=== PATIENT | female | born 1955 | race Hispanic/Latino ===

== ENCOUNTER 2020-03-12 14:47 | Emergency (ER) | payer OTHER ==
[~2020-03-12] VITALS: Ht 167.6 cm; Wt 90.3 kg
[~2020-03-12 14:47] MED LIST: ATORVASTATIN CA20 MG PO; CELEBREX100 MG PO; KEFLEX500 MG PO; LISINOPRIL2.5 MG PO; LOPRESSOR25 MG PO; METFORMIN HCL500 MG PO; NIFEDIPINE10 MG PO; NOVOLIN N100 UNIT/1 SQ; OMEPRAZOLE40 MG PO; SENNA LAX8.6 MG PO; ULTRAM50 MG PO; ZOFRAN4 MG SL
--- OUTSIDE RECORDS SUMMARY | 2020-03-12 15:24 | XMS REPORT | Clinical Summary ---
Author Author [facility] Organization [facility] Address Unknown Phone Unavailable Care Team Providers Care Power System Operator Name Role Phone PCP Unavailable Allergies Comments Active Allergy Reactions Severity Noted Date Codeine Nausea and 01/11/2016 Vomiting Medications End Date Status Medication Sig Dispensed Refills Start Date Active ergocalciferol (VITAMIN Take 1 12 capsule 1 D2) 50,000 unit capsule by 6 capsuleIndications: mouth weekly. Vitamin D deficiency Active naproxen (NAPROSYN) 500 Take 1 tablet 30 tablet 0 mg tabletIndications: by mouth 2 7 Acute pain of right knee times daily as needed for Pain. Active ketoconazole (NIZORAL) 2 Apply to 30 g 1 1 % topical affected area 7 creamIndications: Vaginal 2 times itching, Tinea cruris daily. Active prednisoLONE acetate Instill 1 5 mL 3 05/07 (PRED FORTE) 1 % Drop in right 8 ophthalmic eye 4 times suspensionIndications: daily. Status post cataract extraction and insertion of intraocular lens of right eye Active gabapentin (NEURONTIN) Take 1 270 capsule 1 300 mg capsule by 8 capsuleIndications: mouth at Paresthesia of both feet bedtime nightly. Active linagliptin (TRADJENTA) 5 Take 1 tablet 90 tablet 1 mg tabletIndications: by mouth 8 Type 2 diabetes mellitus daily. with complication, without long-term current use of insulin Active fenofibrate Take 1 tablet 90 tablet 1 nanocrystallized (TRICOR) by mouth 8 48 mg tabletIndications: daily. Mixed hyperlipidemia, Preventative health care Active atorvastatin (LIPITOR) 20 Take 1 tablet 90 tablet 1 mg tabletIndications: by mouth at 8 Mixed hyperlipidemia bedtime nightly. Active blood glucose meter Use as 1 Kit 0 (PRECISION XTRA directed.. 8 GLUCOMETER)Indications: Type 2 diabetes mellitus with complication, without long-term current use of insulin Active blood glucose (PRECISION Use 2 times 50 Each 3 0 XTRA TEST STRIPS) test weekly (once 8 stripsIndications: Type 2 per day on diabetes mellitus with Mon,) to complication, without test blood long-term current use of sugar. insulin Active lancets 28 Use 2 times 100 Each 1 gaugeIndications: Type 2 weekly as 8 diabetes mellitus with directed. complication, without long-term current use of insulin Active lisinopril (ZESTRIL) 2.5 Take 1 tablet 90 tablet 1 mg tabletIndications: by mouth 8 Albuminuria daily. Active glyBURIDE micronized Take 1 tablet 60 tablet 1 (GLYNASE) 6 mg by mouth 2 8 tabletIndications: Type 2 times daily diabetes mellitus not at (before goal meals). Active metFORMIN (GLUCOPHAGE) Take 2 360 tablet 1 500 mg tabletIndications: tablets by 8 Type 2 diabetes mellitus mouth 2 times not at goal daily (with meals). Active pioglitazone (ACTOS) 15 Take 1 tablet 90 tablet 3 mg tabletIndications: by mouth 8 Poorly controlled daily. diabetes mellitus Active Problems Problem Noted Date Type 2 diabetes mellitus not at goal 08/06/2017 Pseudophakia 04/04/2017 Cataract 03/07/2017 Overview: Added automatically from request for monica zapata [id number] Nuclear sclerotic cataract of both eyes 02/28/2017 Mixed hyperlipidemia 01/31/2016 Vitamin D deficiency 01/31/2016 Type 2 diabetes mellitus with complication, without l angelina-term current use 01/16/2016 of insulin Secondary hypertension 01/16/2016 Blurry vision, bilateral 01/16/2016 Immunizations Name Administration Dates Next Due Hepatitis B Pedi/Adol 08/13/2017 Influenza <Unspecified> 01/06/2016 Influenza Vaccine 02/29/2016 (Deferred: Jimi cuevas Refused) Influenza Vaccine, 03/10/2017 (Deferred: Jimi cuevas Refused - pt stated Seasonal, Injectable her ride was here could not wait) PPV 23 (Pneumococcal 08/13/2017 Polysaccharide 23 Valent) Pcv-13 Pneumococcal 01/11/2016 Conjugate Tdap Tetanus, diphtheria, 01/16/2016 acellular pertussis Vaccine Family History Medical History Relation Name Comments Heart Father Hypertension Father Stroke Father Glaucoma Maternal Aunt Glaucoma Maternal Grandmother Arthritis Mother Cataracts Sister Diabetes Sister Asthma Son Relation Name Status Comments Father Alive Maternal Aunt Alive cancer Maternal Aunt cancer (Age 60) Maternal Grandmother Mother Alive Paternal Uncle heart (Age 35) Paternal Uncle heart (Age 58) Paternal Uncle heart (Age 50-60) Paternal Uncle herat (Age 50-60) Sister Son Social History Date Tobacco Use Types Packs/Day Years Used Never Smoker Smokeless Tobacco: Never Used Tobacco Cessation: Counseling Given: No Drinks/Week oz/Week Comments Alcohol Use 0 Standard drinks or equivalent 0.0 No Food Insecurity Answer Date Recorded Within the past 12 months, you worried that your Never yesi e 01/17/2017 food would run out before you got money to buy more. Within the past 12 months, the food you bought Never true 01/17/2017 just didn't last and you didn't have mo trip to get more. Sex Assigned at Date Recorded Not on file Industry Job Start Date Occupation Not on file Not on file Not on file Travel End Travel History Travel Start No recent travel history available. Last Filed Vital Signs Not on file Plan of Treatment Health Maintenance Due Date Last Done Comments HPV Cervical Cancer Scrn 12/27/1987 Pap Cervical Cancer Scrn 03/27/2010 03/27/2005 Colorectal Cancer Scrn 01/23/2017 01/24/2016 Annual (FIT/FOBT) Age 50 to 75 Breast Cancer Scrn 02/15/2017 02/16/2016, (Yearly) 04/16/2005 DM Foot Exam (Yearly) 01/17/2018 01/17/2017 DM Retinal Exam (Yearly) 02/28/2018 02/28/2017, 02/28/2017, 04/08/2016 DM HGBA1C (Yearly) 07/28/2018 07/28/2017, 01/24/2017, 07/05/2016, Additional history exists IMM Influenza Seasonal 02/03/2020 01/06/2016 Oct to July (>/= 19 yrs) Goals Goal Patient Associated Recent Progress Patient-Stat Aut hor Goal Type Problems ed? Use plate model Diet Not on track No Otoniel, (08/06/2017 2:02 PM MONICA Soto CDT) HBA1C < 7.0 Result 13.1 (07/28/2017 No Guzman, Component 2:54 PM CDT) Lee Pike LVN LDL < 100 Result 136 (07/28/2017 No Hemant, Amn a, Component 2:54 PM CDT) Implants Device Identifier Shelf Expiration Date Model / Serial / L ot Implanted Type Area Manufactur er 09/03/2020 [id number] / [id number] / Implant [employer] 1 Piece Implant Left: Eye, Morales [id number] 22.5d - [id number] eye Anterior [employer] Implanted: Qty: 1 on 04/03/2017 by Irina Webber ResidentMD at [facility] 02/25/2021 / [id number] / Implant [employer] 1 Piece Implant Right : Eye, [id number] 22.0d - [id number] eye Anterio r Implanted: Qty: 1 on 05/06/2017 by Juan Ruiz MD at [facility] Results Not on fileafter 03/12/2019
--- OUTSIDE RECORDS SUMMARY | 2020-03-12 15:25 | XMS REPORT | Continuity of Care Document ---
Author Author [facility] t Organization [facility] Address [address] [place] [phone] Phone Unavailable Care Team Providers Care Auctioneer Art Name Role Phone MD MERT MEDINA PCP CHELSEY TOLEDO Attphys Unavailable RASSOLI, AMIR Attphys Unavailable CHELSEY TOLEDO Admphys Unavailable RASSOLI, AMIR Admphys Unavailable Payers Payer Name Policy Type Policy Number Effective Date Expiration Date Valentina Elizondo [id number] 2019 00:00:00 [facility] Cdc Review [id number] [facility] Problems Condition Name Condition Details Condition Category Status Onset Date Resolution Date Last Treatment Date Treating Clinician Comments Source Type 2 diabetes mellitus not at goal Type 2 diabetes mellitu s not at goal Disease Active 2017-08-06 00:00:00 [facility] Pseudophakia Pseudophakia Disease Active 2017-04-04 00:00:00 [facility] Cataract Cataract Disease Active 2017-03-07 00:00:00 Overview: Added automatically from request for surgery [id number] [facility] Nuclear sclerotic cataract of both eyes Nuclear sclerotic ca taract of both eyes Disease Active 2017-02-28 00:00:00 [facility] Mixed hyperlipidemia Mixed hyperlipidemia Disease Active 00:00:00 [facility] Vitamin D deficiency Vitamin D deficiency Disease Active 00:00:00 [facility] Type 2 diabetes mellitus with complicati on, without long-term current use of insulin Type 2 diabetes mellitus with complicati on, without long-term current use of insulin Disease Active 2016-01-16 00:00:00 [facility] Secondary hypertension Secondary hypertension Disease Active 2016-01-16 00:00:00 [facility] Blurry vision, bilateral Blurry vision, bilateral Disease Acti ve 2016-01-16 00:00:00 [facility] Problem Condition Active [facility] Allergies, Adverse Reactions, Alerts Allergy Name Allergy Type Status Severity Reaction(s) Onset Date Inacti ve Date Treating Clinician Comments Source Codeine Allergy to substance Active 2020-02-25 00:00:00 [facility] codeine DA Active [place] 2019-03-29 00:00:00 [facility] codeine DA Active [place] 2018-11-06 00:00:00 [facility] Codeine Propensity to adverse reactions to drug Active Nausea and Vomiting 2016-01-11 00:00:00 [facility] Family History Family Member Diagnosis Comments Start Date Stop Date Source Natural father Heart [facility] Natural father [facility]ension [facility] Natural father Stroke [facility] Maternal aunt Glaucoma [facility]aternal grandmother Glaucoma [facility] Natural mother Arthritis [facility] Natural sister Cataracts [facility] Natural sister Diabetes [facility] Natural son Asthma [facility] Social History Social Habit Start Date Stop Date Quantity Comments Source Sex Assigned At [facility] Alcohol intake 2018-10-07 00:00:00 2018-10-07 00:00:00 Current non-drinker of alcohol (finding) [facility] SDOH Food Worry 2017-01-17 00:00:00 2017-01-17 00:00:00 1 [facility] Food Scarcity 2017-01-17 00:00:00 2017-01-17 00:00:00 1 [facility] Smoking Status Start Date Stop Date Source Never smoker [facility] Medications Ordered Medication Name Filled Medication Name Start Date Stop Da te Current Medication? Ordering Clinician Indication Dosage Frequency Signature (SIG) Comments Components Source pioglitazone (ACTOS) 15 mg tablet 2017-08-13 00:00:00 Yes Poorly controlled diabetes mellitus 15mg QD Take 1 tablet by mouth daily. [facility] glyBURIDE micronized (GLYNASE) 6 mg tablet 2017-08-06 00:00: 00 Yes Type 2 diabetes mellitus not at goal 6mg Q.5D Take 1 tab let by mouth 2 times daily (before meals). [facility] metFORMIN (GLUCOPHAGE) 500 mg tablet 2017-08-06 00:00:00 Yes Type 2 diabetes mellitus not at goal 1000mg Take 2 tab lets by mouth 2 times daily (with meals). [facility] gabapentin (NEURONTIN) 300 mg capsule 2017-07-28 00:00:00 Yes Paresthesia of both feet 300mg Take 1 capsule by mouth at bedtime nightly. [facility] linagliptin (TRADJENTA) 5 mg tablet 2017-07-28 00:00:00 Yes Type 2 diabetes mellitus with complication, without long-term current use of insulin 5mg QD Take 1 tablet by mouth daily. [facility] fenofibrate nanocrystallized (TRICOR) 48 mg tablet 2017-07 00:00:00 Yes Preventative health care 48mg QD Take 1 tablet by mouth da dyan. [facility] atorvastatin (LIPITOR) 20 mg tablet 2017-07-28 00:00:00 Yes Mixed hyperlipidemia 20mg Take 1 tablet by mouth at bedtime nightly. [facility] blood glucose meter (PRECISION XTRA GLUCOMETER) 2017-07-28 0 0:00:00 Yes Type 2 diabetes mellitus with complication, without long-term current use of insulin Use as directed.. [facility] blood glucose (PRECISION XTRA TEST STRIPS) test strips 2017-07-28 00:00:00 Yes Type 2 diabetes mellitus wit h complication, without long-term current use of insulin Use 2 times weekly ( once per day on Fri,) to test blood sugar. [facility] lancets 28 gauge 2017-07-28 00:00:00 Yes Type 2 diabetes mellitus with complication, without long-term current use of insulin Use 2 times weekly as directed. [facility] lisinopril (ZESTRIL) 2.5 mg tablet 2017-07-28 00:00:00 Y es Albuminuria 2.5mg QD Take 1 tablet by mouth daily. [facility] prednisoLONE acetate (PRED FORTE) 1 % ophthalmic suspension 2017-05-07 00:00:00 Yes Status post toni ract extraction and insertion of intraocular lens of right eye 1[drp] Instill 1 Drop in right eye 4 times rebecca ita [facility] ketoconazole (NIZORAL) 2 % topical cream 2017-02-25 00:00:00 Yes Tinea cruris Q.5D Apply to affected area 2 times daily. [facility] naproxen (NAPROSYN) 500 mg tablet 2016-07-09 00:00:00 Yes Acute pain of right knee 500mg Take 1 tablet by mouth 2 times daily as needed for Pain. [facility] ergocalciferol (VITAMIN D2) 50,000 unit capsule 2016-01-31 0 0:00:00 Yes Vitamin D deficiency [id number] Take 1 capsule by mouth weekly. [facility] Atorvastatin Calcium Atorvastatin Calcium Yes 40 Bedtime [facility] Celecoxib (Celebrex*) 100 Mg CAPSULE Celecoxib (Celebrex*) 100 Mg C APSULE Yes 100 Twice A Day as needed for Pain [facility] Cephalexin Monohydrate (Keflex) 500 Mg CAPSULE Cephale eriberto Monohydrate (Keflex) 500 Mg CAPSULE Yes 500 Three Times A Day [facility] Metoprolol Tartrate (Lopressor) 25 Mg TAB Metoprolol T artrate (Lopressor) 25 Mg TAB Yes 50 Twice A Day [facility] Nifedipine Nifedipine Yes 30 Bedtime [facility] Nph, Human Insulin Isophane (Novolin N) 100 Unit/1 Ml VIAL Nph, Human Insulin Isophane (Novolin N) 100 Unit/1 Ml VIAL Yes 40 Daily [facility] Nph, Human Insulin Isophane (Novolin N) 100 Unit/1 Ml VIAL Nph, Human Insulin Isophane (Novolin N) 100 Unit/1 Ml VIAL Yes 20 Bedtime [facility] Omeprazole Omeprazole Yes 40 Daily@0600 [facility] Ondansetron Hcl (Zofran*) 4 Mg TABLET Ondansetron Hcl (Zofran*) 4 M g TABLET Yes 4 Every 4 Hours as needed for Nausea And V omiting [facility] Sennosides (Senna Lax) 8.6 Mg TABLET Sennosides (Senna Lax) 8.6 Mg TABLET Yes 8.6 Twice A Day [facility] Tramadol Hcl (Ultram) 50 Mg TABLET Tramadol Hcl (Ultram) 50 Mg TABLET Yes 50 Every 6 Hours as needed for Pain [facility] Lisinopril Lisinopril 2020-03-08 00:00:00 No 2.5 Jennifer ly [facility] Metformin Hcl Metformin Hcl 2020-02-25 00:00:00 No 500 Twice A Day [facility] Immunizations Ordered Immunization Name Filled Immunization Name Date Status Comments Source Hepatitis B Pedi/Adol 2017-08-13 00:00:00 Completed [facility] PPV 23 (Pneumococcal Polysaccharide 23 Valent) 2017-08 00:00:00 Completed [facility] Tdap Tetanus, diphtheria, acellular pertussis Vaccine 2016-01-16 00:00:00 Completed [facility] Pcv-13 Pneumococcal Conjugate 2016-01-11 00:00:00 Complete d [facility] Influenza <Unspecified> 2016-01-06 00:00:00 Completed [facility] Vital Signs Vital Name Observation Time Observation Value Comments Source Body Temperature 2020-03-08 12:00:00 98.8 [degF] [facility] Heart Rate 2020-03-08 12:00:00 66 /min [facility] Respiratory rate 2020-03-08 12:00:00 18 /min [facility] BP Systolic 2020-03-08 12:00:00 151 mm[Hg] [facility] BP Diastolic 2020-03-08 12:00:00 71 mm[Hg] [facility] Oxygen saturation by Pulse oximetry 2020-03-08 12:00:00 94 /min [facility] BMI (Body Mass Index) 2020-03-06 20:16:00 32.1 kg/m2 [facility] Weight 2020-03-04 07:55:00 199 [lb_av] [facility] Procedures Procedure Date / Time Performed Performing Clinician [facility] X-ray of chest, two views 2020-03-06 00:00:00 [facility] X-ray of chest, two views 2020-02-25 00:00:00 [facility] Plan of Care Planned Activity Planned Date Details Comments Source Scheduled Test 2020-02-03 00:00:00 IMM Influenza Seas onal Feb to July (>/= 19 yrs) [code = IMM Influenza Seasonal Feb to July (>/= 19 yrs)] [facility] Scheduled Test 2018-07-28 00:00:00 Hemoglobin A1c jennifer surement (procedure) [code = 20209610] [facility] Scheduled Test 2018-02-28 00:00:00 DM Retinal Exam (Y early) [code = DM Retinal Exam (Yearly)] [facility] Scheduled Test 2018-01-17 00:00:00 DM Foot Exam (Year ly) [code = DM Foot Exam (Yearly)] [facility] Scheduled Test 2017-02-15 00:00:00 Breast Cancer Scrn (Yearly) [code = Breast Cancer Scrn (Yearly)] [facility] Scheduled Test 2017-01-23 00:00:00 Screening for keo gnant neoplasm of colon (procedure) [code = 521244362] [facility] Scheduled Test 2010-03-27 00:00:00 Screening for keo gnant neoplasm of cervix (procedure) [code = 517364009] [facility] Scheduled Test 1987-12-27 00:00:00 Screening for keo gnant neoplasm of cervix (procedure) [code = 046774599] [facility] Instructions How to Take Your Blood Pressure [facility] Instructions Hypertension [facility] Instructions Post Operative Pain [facility] Instructions How to Take Your Pulse [facility] Encounters Start Date/Time End Date/Time Encounter Type Admission Type Attendi [facility] Care Department Encounter ID Source 2020-03-01 14:48:00 2020-03-08 16:15:00 Discharged Inpatient 3 CHELSEY TOLEDO [facility] [id number] [facility] 2018-01-20 00:00:00 2018-01-20 00:00:00 Outpatient [facility] [id number] [facility] 2017-11-13 00:00:00 2017-11-13 00:00:00 Outpatient [facility] [id number] [facility] 2017-09-30 00:00:00 2017-09-30 00:00:00 Outpatient [facility] [id number] [facility] 2017-09-12 00:00:00 2017-09-12 00:00:00 Outpatient [facility] [id number] [facility] 2017-09-10 00:00:00 2017-09-10 00:00:00 Outpatient [facility] [id number] [facility] 2017-09-10 00:00:00 2017-09-10 00:00:00 Outpatient [facility] [id number] [facility] 2017-09-03 00:00:00 2017-09-03 00:00:00 Outpatient [facility] [id number] [facility] 2017-08-29 00:00:00 2017-08-29 00:00:00 Outpatient [facility] [id number] [facility] 2017-08-27 00:00:00 2017-08-27 00:00:00 Outpatient [facility] [id number] [facility] 2017-08-15 00:00:00 2017-08-15 00:00:00 Outpatient [facility] [id number] [facility] 2017-08-15 00:00:00 2017-08-15 00:00:00 Outpatient [facility] [id number] [facility] 2017-08-13 13:39:04 2017-08-13 13:39:04 Outpatient [facility] [id number] [facility] 2017-08-13 00:00:00 2017-08-13 00:00:00 Outpatient [facility] [id number] [facility] 2017-08-13 00:00:00 2017-08-13 00:00:00 Outpatient [facility] [id number] [facility] 2017-08-13 00:00:00 2017-08-13 00:00:00 Outpatient [facility] [id number] [facility] 2017-08-08 00:00:00 2017-08-08 00:00:00 Outpatient [facility] [id number] [facility] 2017-08-06 10:17:09 2017-08-06 10:17:09 Outpatient [facility] [id number] [facility] 2017-08-06 09:59:17 2017-08-06 09:59:17 Outpatient [facility] [id number] [facility] 2017-08-06 09:00:44 2017-08-06 09:00:44 Outpatient [facility] [id number] [facility] 2017-07-31 15:44:04 2017-07-31 15:44:04 Outpatient [facility] [id number] [facility] 2017-07-30 00:00:00 2017-07-30 00:00:00 Outpatient [facility] [id number] [facility] 2017-07-28 14:54:46 2017-07-28 14:54:46 Outpatient [facility] [id number] [facility] 2017-07-28 13:40:04 2017-07-28 13:40:04 Outpatient [facility] [id number] [facility] 2017-07-03 00:00:00 2017-07-03 00:00:00 Outpatient [facility] [id number] [facility] 2017-06-16 00:00:00 2017-06-16 00:00:00 Outpatient [facility] [id number] [facility] 2017-06-05 00:00:00 2017-06-05 00:00:00 Outpatient [facility] [id number] [facility] 2017-05-28 00:00:00 2017-05-28 00:00:00 Outpatient [facility] [id number] [facility] 2017-05-15 10:18:02 2017-05-15 10:18:02 Outpatient [facility] [id number] [facility] 2017-05-07 09:46:05 2017-05-07 09:46:05 Outpatient [facility] [id number] [facility] 2017-05-06 06:56:00 2017-05-06 06:56:00 Outpatient [facility] [id number] [facility] 2017-05-06 00:00:00 2017-05-06 00:00:00 Outpatient [facility] [id number] [facility] 2017-05-01 10:54:30 2017-05-01 10:54:30 Outpatient [facility] [id number] [facility] 2017-05-01 00:00:00 2017-05-01 00:00:00 Outpatient [facility] [id number] [facility] 2017-04-25 00:00:00 2017-04-25 00:00:00 Outpatient [facility] [id number] [facility] 2017-04-18 00:00:00 2017-04-18 00:00:00 Outpatient [facility] [id number] [facility] 2017-04-16 12:01:13 2017-04-16 12:01:13 Outpatient [facility] [id number] [facility] 2017-04-16 00:00:00 2017-04-16 00:00:00 Outpatient [facility] [id number] [facility] 2017-04-04 08:11:13 2017-04-04 08:11:13 Outpatient [facility] [id number] [facility] 2017-04-03 07:03:00 2017-04-03 07:03:00 Outpatient [facility] [id number] [facility] 2017-04-03 00:00:00 2017-04-03 00:00:00 Outpatient [facility] [id number] [facility] 2017-03-21 09:24:13 2017-03-21 09:24:13 Outpatient [facility] [id number] [facility] 2017-03-21 00:00:00 2017-03-21 00:00:00 Outpatient [facility] [id number] [facility] Results Test Description Test Time Test Comments Results Result Comments Source Capillary blood glucose measurement by glucometer (mas s/volume) 2020-03-08 09:11:00 Test Item Bedside Glucose (test code = 88649-2) 227 mg/dL 70-120 Meter ID: [id number] [facility] 2020-03[facility]06 10:19:00 [facility] 1955 Sex: F [place] [address] Patient Name: JAUN HART MR #: [id number] : 1955 Age/Sex: 64/F Req #: [id number] Adm Physician: CHELSEY TOLEDO MD red by: CANDICE ESPITIA MD Report #: [id number] Locat ion: [facility] Room/Bed: [place] [address] Procedure: [id number] DX/CHEST 2 VIEWS Exam Date: 03/06/20 Exam Time: 1006 REPORT STATUS: Signed EXAMINATION: CHEST 2 VIEWS INDICATION: Status post renal surgery. Renal mass. F/U [id number] COMP ARISON: 03/05/2020 FINDINGS: TUBES and LINES: Right chest tube has been removed. LUNGS: Low lung volumes with bronchovascular crowding and anderson bsegmental atelectasis particularly in the lung bases. There is now linear niki telike atelectasis in the left midlung. PLEURA: No pleural effusion or p neumothorax. HEART AND MEDIASTINUM: The cardiomediastinal silhouette is un remarkable. BONES AND SOFT TISSUES: No acute osseous lesion. Soft tis sues are unremarkable. UPPER ABDOMEN: No free air under the diaphragm. IMPRESSION: Right chest tube has been removed. Low lung volumes with bronchovascular crowding and subsegmental atelectasis particularly in the lung bases. There is now linear platelike atelectasis in the left midlung. Signed by: Dr. Susan Godfrey M.D. on 03/06/2020 10:21 AM Dictated By: SUSAN GODFREY MD, MD 1021 Transcribed By: SHIRA on 03/06/20 1021 COPY TO: CANDICE ESPITIA MD CHEST SINGLE (PORTABLE)2020-03-05 09:11:00 [facility] : 1955 Sex: F [facility] [address] [place], [place] [address] Patient Name: JAUN HART MR #: [id number] : 1955 Age/Sex: 64/F Req #: [id number] [facility] Physician: CHELSEY TOLEDO MD Orde red by: RADHA MOSS MD Report #: [id number] Locati on: [facility] Room/Bed: [facility] 1979 Procedure: [id number] DX/CHEST SINGLE (PORTABLE) Exam Date: 03/05 Exam Time: 0500 REPORT STATUS: Signed EXAMINATION: CHEST SINGLE (PORTABLE) INDICATION: Evaluate chest tube positioning and right apical pneumothorax. COMPARISON: Multiple prior chest x-rays including most sent on 03/04/2020 FINDINGS: TUBES and LINES: Right chest tube remains in place, probably slight advancement. LUNGS: Low lung volumes with bronchovascular crowding and subsegmental atelectasis particularly at the lung bases. P LEURA: COMPLETE resolution of the right apical pneumothorax. HEART AND MEDI ASTINUM: The cardiomediastinal silhouette is unchanged. BONES AND SOFT TISSUES: Degenerative changes in the spine and shoulders. Soft tissues are unremarkable. UPPER ABDOMEN: No free air under the diaphragm. IMPR ESSION: 1. Almost complete resolution of right apical pneumothorax. Right chest tube remains in place. 2. Otherwise no interval change in radiograph ic appearance of the lungs. Signed by: Nithin Valle MD on 03/05/2020 9:1 6 AM Dictated By: NITHIN VALLE MD 5 Transcribed By: SHIRA on 03/05/20915 COPY TO : RADHA MOSS MD Blood leukocytes automated count (number/volume) 2020-03-05 04:50:00* Test Item Value Reference Range Interpretation Comments White Blood Count (test code = 6690-2) 10.56 10*3/uL 4.8-10.8 [facility] count (number/volume)2020-03-05 04:50:00* Test Item Value Reference Range Interpretation Comments Red Blood Count (test code = 789-8) 3.98 10*6/mL 3.6-5.1 [facility] measurement (moles/volume)2020-03-05 04:50:00* Test Item Value Reference Range Interpretation Comments Hemoglobin (test code = 39623-9) 11.1 g/dL 12.0-16.0 [facility] hematocrit (volume fraction)2020-03-05 04:50:00* Test Item Value Reference Range Interpretation Comments Hematocrit (test code = 4544-3) 34.4 % 34.2-44.1 [facility] erythrocyte mean corpuscular [id number] 04:50:00* Test Item Value Reference Range Interpretation Comments Mean Corpuscular Volume (test code = 787-2) 86.4 81-99 [facility] eryth[facility] mean corpuscular hemoglobin (mass per erythrocyte)2020-03-05 04:50:00* Test Item Value Reference Range Interpretation Comments Mean Corpuscular Hemoglobin (test code = 785-6) 27.9 pg 28-32 [facility] eryth[facility] mean corpuscular hemoglobin concentration measurement (mass/volume)2020-03-05 04:50:00* Test Item Value Reference Range Interpretation Comments Mean Corpuscular Hemoglobin Concent (test code = 786-4) 32.3 g/dL 31-35 [facility] HospitalRDW [id number]-[id number] 04:50:00* Test Item Value Reference Range Interpretation Comments Red Cell Distribution Width (test code = 64849-3) 13.0 % 11.7 -14.4 [facility] platelet count (count/volume)2020-03-05 04:50:00* Test Item Value Reference Range Interpretation Comments Platelet Count (test code = 777-3) 274 10*3/uL 140-360 [facility] segmented neutrophil count as percentage of total [id number] 04:50:00* Test Item Value Reference Range Interpretation Comments Neutrophils (%) (Auto) (test code = 48200-2) 79.3 % 38.7-80.0 [facility] lymphocyte count as percentage ot total [id number] 04:50:00* Test Item Value Reference Range Interpretation Comments Lymphocytes (%) (Auto) (test code = 736-9) 8.8 % 18.0-39.1 [facility] blood monocyte count as percentage of total yzdgvoewfz2273-12-85 04:50:00* Test Item Value Reference Range Interpretation Comments Monocytes (%) (Auto) (test code = 5905-5) 7.6 % 4.4-11.3 [facility] blood eosinophil count as percentage of total [id number] 04:50:00* Test Item Value Reference Range Interpretation Comments Eosinophils (%) (Auto) (test code = 713-8) 3.3 % 0.0-6.0 [facility] blood basophil count as percentage of total czsyurdgrs0696-60-74 04:50:00* Test Item Value Reference Range Interpretation Comments Basophils (%) (Auto) (test code = 706-2) 0.5 % 0.0-1.0 [facility] HospitalFluoroscopic procedure less than one hour [id number] 04:50:00* Test Item Value Reference Range Interpretation Comments IM GRANULOCYTES % (test code = IM GRANULOCYTES %) 0.5 % 0.0- 1.0 [facility] neutrophil count 2020-03-05 04:50:00* Test Item Value Reference Range Interpretation Comments Neutrophils # (Auto) (test code = 751-8) 8.4 2.1-6.9 [facility] Hospital[facility] lymphocytes count (number/volume) 2020-03-05 04:50:00* Test Item Value Reference Range Interpretation Comments Lymphocytes # (Auto) (test code = 54057-9) 0.9 1.0-3.2 [facility] HospitalBlood monocytes automated count (number/volume)2020-03-05 04:50:00* Test Item Value Reference Range Interpretation Comments Monocytes # (Auto) (test code = 742-7) 0.8 0.2-0.8 [facility] HospitalAutomated blood eosinophil count 2020-03-05 04:50:00* Test Item Value Reference Range Interpretation Comments Eosinophils # (Auto) (test code = 711-2) 0.4 0.0-0.4 [facility] HospitalAutomated blood basophil count (count/volume)2020-03-05 04:50:00* Test Item Value Reference Range Interpretation Comments Basophils # (Auto) (test code = 704-7) 0.1 0.0-0.1 [facility] HospitalFluoroscopic procedure less than one hour [id number] 04:50:00* Test Item Value Reference Range Interpretation Comments Absolute Immature Granulocyte (auto (raman t code = Absolute Immature Granulocyte (auto) 0.05 10*3/uL 0-0.[address] [facility] [place] [place]um or plasma sodium measurement (moles/volume)2020-03-05 04:50:00* Test Item Value Reference Range Interpretation Comments Sodium Level (test code = 2951-2) 137 mmol/L 136-[address] [facility] [place], TXerum or plasma potassium measurement (moles/volume)2020-03-05 04:50:00* Test Item Value Reference Range Interpretation Comments Potassium Level (test code = 2823-3) 4.0 mmol/L 3.5-5.[address] [facility] [place], TXerum or plasma chloride measurement (moles/volume)2020-03-05 04:50:00* Test Item Value Reference Range Interpretation Comments Chloride Level (test code = 2075-0) 102 mmol/L 98-[address] [facility] [place], TXerum or plasma carbon dioxide, total measurement (moles/volume)2020-03-05 04:50:00* Test Item Value Reference Range Interpretation Comments Carbon Dioxide Level (test code = 2028-9) 28 mmol/L 22-[address] [facility] [place], TXerum or plasma anion [id number] 04:50:00* Test Item Value Reference Range Interpretation Comments Anion Gap (test code = 62239-2) 11.0 mmol/L 8-[address] [facility] [place], TXerum or plasma urea nitrogen measurement (mass/volume)2020-03-05 04:50:00* Test Item Value Reference Range Interpretation Comments Blood Urea Nitrogen (test code = 3094-0) 15 mg/dL 7- [facility] [place], TXerum or plasma creatinine measurement (mass/volume)2020-03-05 04:50:00* Test Item Value Reference Range Interpretation Comments Creatinine (test code = 2160-0) 1.19 mg/dL 0.57-1.[address] [facility] [place], TXerum or plasma urea nitrogen/creatinine mass lhfmn5736-12-08 04:50:00* Test Item Value Reference Range Interpretation Comments BUN/Creatinine Ratio (test code = 3097-3) 13 6- [facility] HospitalEstimated glomerular filtration rate (GFR) oxhuvelpokmya5211-86-70 04:50:00* Test Item Value Reference Range Interpretation Comments Estimat Glomerular Filtration Rate (test code = 703688602) 46 mL/mi n >60 Ranges were taken from the National Kidney Disease Education Program and the [facility] literature.Reference ranges:60 or greater: Cglzdl86-47 ( for 3 consecutive months): Chronic kidney disease 15 or less: Kidney failureTexas Orthopedic HospitalGlucose mpkcpceixpv8026-74-28 04:50:00* Test Item Value Reference Range Interpretation Comments Glucose Level (test code = YSO6867) 173 mg/dL 74-[address] [facility] [place], TXerum or plasma calcium measurement (mass/volume)2020-03-05 04:50:00* Test Item Value Reference Range Interpretation Comments Calcium Level (test code = 00154-3) 9.3 mg/dL 8.4-10.2 [facility] HospitalCHEST SINGLE (PORTABLE)2020-03-04 08:23:00[facility] : 1955 Sex: F [place] [address] Patient Name: JAUN HART MR #: [id number] : 1955 Age/Sex: 64/F Req #: [id number] Adm Physician: CHELSEY TOLEDO MD Ordered by: DURGA RESENDEZ MD Report #: [id number] Location: [facility] Room/Bed: [place] [address] ___ Procedure: [id number] DX/CHEST SINGLE (PORTABLE) Exam Date: 03/04/20 Exam Time: 0526 REPORT STATUS: Signed EXAMINATION: CHEST SINGLE (PORTABLE) INDICATION: Chest tube evaluation. COMPARISON: Multiple prior x- rays including most recent on 03/03/2020. FINDINGS: Right ch est tube remains in place, slightly retracted when compared to most recent daisy or examination. The has been slight interval worsening of right apical pneu mothorax which now measures approximately 5 mm from the chest wall. Other gtz no interval changes in radiographic appearance of the lungs and mediastin um. IMPRESSION: Slight interval retraction of right chest tube with i nterval worsening of right apical pneumothorax which now measures approximatel y 5 mm from the chest wall. Signed by: Nithin Valle MD on 03/04/2020 8: 28 AM Dictated By: NITHIN VALLE MD 7 Transcribed By: SHIRA on 03/04/20827 COPY T O: DURGA RESENDEZ MD CHEST SINGLE (PORTABLE)2020-03-03 11:36:00 [facility] : 1955 Sex: F [place] [address] Patient Name: JAUN HART MR #: [id number] : 1955 Age/Sex: 64/F Req #: [id number] Adm Physician: CHELSEY TOLEDO MD Orde red by: DURGA RESENDEZ MD Report #: [id number] ocation: [facility] Room/Bed: [facility] 198-1 ___ Procedure: [id number] DX/CHEST SINGLE (PORTABLE) Exam Date: 03/03/20 Exam Time: 1030 REPORT STATUS: Signed Chest, 1 view, 03/03/2020. History: Chest tube. Comparison: X-ray from earlier this morning. Fi ndings: The cardiomediastinal silhouette and pulmonary vasculature are within normal limits for a portable exam. 2 mm right apical pneumothorax is unchanged. Right basilar chest tube and bibasilar atelectasis are unchanged. There are no acute osseous or soft tissue abnormalities. Impression: Tiny right apical pneumothorax without change. Signed by: Nathen Don on 03/03/2020 11:37 AM Dictated By: NATHEN DON MD 36 Transcribed By: SHIRA on 03/03/201136 COPY TO: DURGA RESENDEZ MD CHEST SINGLE (PORTABLE)2020-03-03 08:44:00 [facility] 1955 Sex: F [place] [address] Patient Name: JAUN HART MR #: [id number] : 1955 Age/Sex: 64/F Req #: [id number] [facility] Physician: CHELSEY TOLEDO MD Orde red by: RADHA MOSS MD Report #: [id number] Locati on: [facility] Room/Bed: [facility] 1981 Procedure: [id number] DX/CHEST SINGLE (PORTABLE) Exam Date: 03/03 Exam Time: 0540 REPORT STATUS: Signed Chest, 1 view, 03/03/2020. His tory: Chest tube. Comparison: 03/02/2020. Findings: The cardiomediasti nal silhouette and pulmonary vasculature are within normal limits for a portab le exam. Right basilar chest tube is unchanged in position. Small right apical pneumothorax is visible, measuring only 2 mm. There is no focal consolidation or pleural effusion. Bibasilar atelectasis is present. There are no acute oss eous or soft tissue abnormalities. Impression: Tiny right apical pneumo thorax. Signed by: Nathen Don on 03/03/2020 8:46 AM Dictated By: NATHEN DON MD 5 T ranscribed By: SHIRA on 03/03/20845 COPY TO: RADHA MOSS MD CHEST SINGLE (PORTABLE)2020-03-02 14:18:00 [facility] : 1955 Sex: F [place] [address] Patient Name: JAUN HART MR #: [id number] : 1955 Age/Sex: 64/F Req #: [id number] Adm Physician: CHELSEY TOLEDO MD Orde red by: DURGA RESENDEZ MD Report #: [id number] L ocation: [facility] Room/Bed: [place] [address] ___ Procedure: [id number] DX/CHEST SINGLE (PORTABLE) Exam Date: 03/02/20 Exam Time: 1405 REPORT STATUS: Signed Chest, 1 view, 03/02/2020. History: Chest tube. Comparison: X-ray from this morning. Findings: The cardiomediastinal silhouette and pulmonary vasculature are within normal l imits for a portable exam. Right basilar chest tube is present. There is no vi sible pneumothorax. There is no focal consolidation or pleural effusion. Bibas ilar atelectasis is present. There are no acute osseous or soft tissue abnorma lities. Impression: No visible pneumothorax. Signed by: Nathen heller on 03/02/2020 2:19 PM Dictated By: NATHEN DON MD Electronically S igned By: NATHEN DON MD on 03/02/201418 Transcribed By: SHIRA on 03/02/201418 COPY TO: DURGA RESENDEZ MD CHEST SINGLE (PORTABLE) 2020-03-02 08:34:00 [facility] : 1955 Sex: F [facility] [address] [facility], [place] [address] Patient Name: JAUN HART MR #: [id number] : 1955 Age/Sex: 64/F Req #: [id number] Adm Physician: CHELSEY TOLEDO MD Orde red by: RADHA MOSS MD Report #: [id number] Locati on: [facility] Room/Bed: [facility] 198-1 Procedure: [id number] DX/CHEST SINGLE (PORTABLE) Exam Date: 03/02 Exam Time: 0620 REPORT STATUS: Signed Chest, 1 view, 03/02/2020. His tory: Chest tube. Comparison: 03/01/2020. Findings: The cardiomediasti nal silhouette and pulmonary vasculature are within normal limits for a portab le exam. There is no focal consolidation or pleural effusion. Right basilar ch est tube is unchanged in position. There is no visible pneumothorax. NG tube i s unchanged in position There are no acute osseous or soft tissue abnormalitie s. Impression: No acute cardiopulmonary abnormality. Signed by: Randi Don on 03/02/2020 8:35 AM Dictated By: NATHEN DON MD Electron ically Signed By: NATHEN DON MD on 03/02/20834 Transcribed By: SHIRA on 03/02/20834 COPY TO: RADHA MOSS MD Serum or plasma magnesium measurement (mass/volume)2020-03-01 16:16:00* Test Item Value Reference Range Interpretation Comments Magnesium Level (test code = 87380-5) 2.3 mg/dL 1.3-2.1 [facility]LE (PORT[facility])2020-03-01 14:15:00[facility] : 1955 Sex: F [facility] [address] [place] [address] Patient Name: JAUN HART MR #: [id number] : 1955 Age/Sex: 64/F Req #: [id number] Adm Physician: Ordered by: RADHA MOSS MD Report #: [id number] Location: [place] Room/Bed: Procedure: [id number] DX/CHEST SINGLE (PORTABLE) Exam Date: 03/01 Exam Time: 1400 REPORT STATUS: Signed EXAM: CHEST SINGLE (PORTABLE) DATE: 2:00 PM INDICATION: Renal mass, rule out pneumothorax CO MPARISON: None FINDINGS: Right chest tube identified in place. There is a trace right apical pneumothorax with approximately 4 mm of maximal pleural se paration. There is no evidence for large focal consolidation or significant pleural effusion. The cardiomediastinal silhouette is magnified by technique but otherwise unremarkable. Enteric tube noted coursing below the diaphragm. N o acute osseous abnormalities identified. IMPRESSION: Trace right apical pneumothorax with right-sided chest tube identified in place. Sig jae by: Dr. Arpan Mota MD on 03/01/2020 2:17 PM Dictated By: ARPAN CRYSTAL MD 16 Transcribed By: SHIRA on 03/01/201416 COPY TO: RADHA MOSS MD CHEST 2 [id number] 15:17:00 [facility] : 1955 Sex: F [place] [address] Patient Name: JAUN HART MR #: [id number] : 1955 Age/Sex: 64/F Req #: [id number] [facility] Physician: Jessica hoang by: RADHA MOSS MD Report #: [id number] Locati on: OR Room/Bed: Procedure: [id number] DX/CHEST 2 VIEWS Exam Date: 02/25/20 Exam Time: 1250 REPORT STATUS: Signed Examination: PA and lateral view of the chest. C OMPARISON: None. INDICATION: Preoperative evaluation DISCUSSION: Lines/tubes: None. Lungs: The lungs are well inflated and clear. No pneumonia or pulmonary edema. Pleura: No pleural effusion or pneumothorax. Heart and mediastinum: The heart and the mediastinum are unremarkable. Bones and soft tissues: No acute bony abnormalities. IMPRESSION: 1. No acute cardiopulmonary abnormalities. Signed by: Dr. Martha Harmon M.D. on 02/25/2020 3:17 PM Dictated By: MARTHA HARMON MD Electroni waldemar Signed By: MARTHA HARMON MD on 02/25/201516 Transcribed By: SHIRA perez 02/25/201516 COPY TO: RADHA MOSS MD Fluoroscopic procedure less than one hour guelhjtf7536-21-28 14:46:00* Test Item Value Reference Range Interpretation Comments Coronavirus (PCR) (test code = Coronavirus (PCR)) NOT DETECTED NOTD ETECTED SARS-CoV-2 PCRHologic Aptima SARS-CoV-2 assay is a nucleic amplification test in tended for the qualitative detection of RNA from SARS-CoV-2 from nasopharyngeal (PRODUCTION ENGINEER) specimens. It is used under Emergency Use Authorization (EUA) by FDA.A posi tive result is indicative of the presence of SARS-CoV-2 RNA. Clinical correlatio n with patient history and other diagnostic information is necessary to determin e patient infection status.A negative (Not Detected) result does not preclude SA RS-CoV-2 infection. Clinical Correlation with patient history and other diagnost ic information should be used in patient management decisions.Invalid: Unable to generate a valid result on this specimen. Please submit a new specimen for repr at testing oc clinically indicated.Tesing performed by:[facility] [place] [address] [id number], Gustavo barrera MD, PhDCHI St[facility] [place] [place]um or plasma total bilirubin measurement (mass/volume)2020-02-25 14:12:00* Test Item Value Reference Range Interpretation Comments Total Bilirubin (test code = 1975-2) 0.3 mg/dL 0.2-1.2 [facility] HospitalFluoroscopic procedure less than one hour [id number] 14:12:00* Test Item Value Reference Range Interpretation Comments Aspartate Amino Transf (AST/SGOT) (test code = Aspartate Amino Transf (AST/SGOT)) 14 [IU]/L 5-[address] [facility] [place] TXerum or plasma alanine aminotransferase measurement (enzymatic activity/volume)2020-02-25 14:12:00* Test Item Value Reference Range Interpretation Comments Alanine Aminotransferase (ALT/SGPT) (test code = 1742-6) 20 [IU]/L 0-[address] [facility] [place] TXerum or plasma protein measurement (mass/volume)2020-02-25 14:12:00* Test Item Value Reference Range Interpretation Comments Total Protein (test code = 2885-2) 6.7 g/dL 6.5-8.[address] [facility] [place] [place]erum or plasma albumin measurement (mass/volume)2020-02-25 14:12:00* Test Item Value Reference Range Interpretation Comments Albumin (test code = 1751-7) 3.6 g/dL 3.5-5.0 [facility] HospitalPlasma globulin measurement (mass/volume) 2020-02-25 14:12:00* Test Item Value Reference Range Interpretation Comments Globulin (test code = 07977-9) 3.1 g/dL 2.3-3.[address] [facility] [place] TXerum or plasma albumin/globulin mass [id number] 14:12:00* Test Item Value Reference Range Interpretation Comments Albumin/Globulin Ratio (test code = 1759-0) 1.2 0.8-2.[address] [facility] [place] [place]erum or plasma alkaline phosphatase measurement (enzymatic activity/volume)2020-02-25 14:12:00* Test Item Value Reference Range Interpretation Comments Alkaline Phosphatase (test code = 6768-6) 99 [IU]/L 40-150 [facility] HospitalGLUBED2020-07-12 11:20:00* Test Item Value Reference Range Interpretation Comments GLUBED (test code = GLUBED) 180 MG/DL 70-110 H Performed by certified draw bench operator helper at [facility] CBC W/AUTO [id number] 08:55:00* Test Item Value Reference Range Interpretation Comments WHITE BLOOD CELL (test code = WBC) 8.69 x10 3/uL 4.5-11.0 N RED BLOOD CELL (test code = RBC) 4.97 x10 6/uL 3.54-5.02 N HEMOGLOBIN (test code = HGB) 13.6 g/dL 11.0-15.0 N HEMATOCRIT (test code = HCT) 44.5 % 33.0-45.0 N MEAN CELL VOLUME (test code = MCV) 89.5 fL 81.0-99.0 N MEAN CELL HGB (test code = MCH) 27.4 pg 27.0-33.0 N MEAN CELL HGB CONCETRATION (test code = MCHC) 30.6 g/dL 33.0-37. 0 L RED CELL DISTRIBUTION WIDTH CV (test code = RDW) 13.6 % 11.5- 14.5 N RED CELL DISTRIBUTION WIDTH SD (test code = RDW-SD) 44.0 fL 37 .0-54.0 N PLATELET COUNT (test code = PLT) 288 x10 3/uL 150-400 N MEAN PLATELET VOLUME (test code = MPV) 11.0 fL 7.0-9.0 H NEUTROPHIL % (test code = NT%) 71.2 % 56.0-77.0 N IMMATURE GRANULOCYTE % (test code = IG%) 0.3 % 0.0-2.0 N LYMPHOCYTE % (test code = LY%) 20.0 % 14.0-32.0 N MONOCYTE % (test code = MO%) 4.7 % 4.8-9.0 L EOSINOPHIL % (test code = EO%) 3.2 % 0.3-3.7 N BASOPHIL % (test code = BA%) 0.6 % 0.0-2.0 N NUCLEATED RBC % (test code = NRBC%) 0.0 % 0-0 N NEUTROPHIL # (test code = NT#) 6.18 x10 3/uL 2.0-7.6 N IMMATURE GRANULOCYTE # (test code = IG#) 0.03 x10 3/uL 0.00-0.03 N LYMPHOCYTE # (test code = LY#) 1.74 x10 3/uL 1.0-3.8 N MONOCYTE # (test code = MO#) 0.41 x10 3/uL 0.1-0.8 N EOSINOPHIL # (test code = EO#) 0.28 x10 3/uL 0.0-0.2 H BASOPHIL # (test code = BA#) 0.05 x10 3/uL 0.0-0.2 N NUCLEATED RBC # (test code = NRBC#) 0.00 x10 3/uL 0.0-0.1 N MANUAL DIFF REQUIRED (test code = MDIFF) NO BASIC METABOLIC [id number] 08:42:00* Test Item Value Reference Range Interpretation Comments SODIUM (test code = NA) 141 mEq/L 134-147 N POTASSIUM (test code = K) 4.4 mEq/L 3.4-5.0 N CHLORIDE (test code = CL) 111 mEq/L 100-108 H CARBON DIOXIDE (test code = CO2) 22 mEq/L 21-33 N ANION GAP (test code = GAP) 12 0-20 N GLUCOSE (test code = GLU) 138 mg/dL 70-110 H BLOOD UREA NITROGEN (test code = BUN) 22 mg/dL 7-18 H GLOMERULAR FILTRATION RATE (test code = GFR) 35.3 80-90 L Units of measure = ml/min/1.73 m2 CREATININE (test code = CREAT) 1.5 mg/dL 0.6-1.3 H CALCIUM (test code = CA) 9.4 mg/dL 8.0-10.5 N [id number] 08:42:00* Test Item Value Reference Range Interpretation Comments PHOSPHOROUS (test code = PHOS) 3.5 MG/DL 2.5-4.9 N GFGHDDHSY2480-04-25 08:42:00* Test Item Value Reference Range Interpretation Comments MAGNESIUM (test code = MAG) 2.10 mg/dL 1.8-2.4 [id number] 08:03:00* Test Item Value Reference Range Interpretation Comments GLUBED (test code = GLUBED) 140 MG/DL 70-110 H Performed by certified draw bench operator helper at [facility] WNSGQR4202-65-42 20:30:00* Test Item Value Reference Range Interpretation Comments GLUBED (test code = GLUBED) 183 MG/DL 70-110 H Performed by certified draw bench operator helper at [facility] - MRI PELVIS W W/O [id number] 17:17:00 FAX: Mert Taylor MD [phone] [place]: St: ADM FAX: Torsten Reilly MD [phone] Name: JAUN HART [facility] : 1955 Age/S: 63/F [address] [place] [address] Unit #: [id number] Loc: [address] [place] [address], [place] [address] Phys: Torsten De La Cruz MD Acct: [id number] Dis Date: Status: ADM IN PHONE #: [phone] Exam Date: 11/13/2019 1330 FAX #: [phone] Reason: adnexal mass EXAMS: CPT CODE: [id number] MRI PELVIS W W/O CONT 61219 PROCEDURE: MRI PELVIS WITH AND WITHOUT CONTRAST IN DICATION: 63-year-old female with incidental adnexal mass, right ovarian d ermoid by CT and lobulated uterus with multiple myometrial masses. COMPARISON: CT without contrast 11/11/2019 TECHNIQUE: Pre-and postcontrast T1-weighted and T2-weighted sequences were acquired. I V CONTRAST: 16 mL Dotarem FINDINGS: Uterus: The uterus christopher ures 7.5 x 4.2 x 5.8 cm. There are multiple myometrial masses of diminish ed T2 signal intensity and intermediate T1 signal intensity. Masses demon strate diminished enhancement relative to normal myometrium. No cystic co mponents. Small lesion of marked diminished T1 signal intensity left vent ral uterus corresponding to calcified fibroid by CT. Turret Punch Operator lesio ns as follows: Posterior uterine body near the fundus, intramural, 2 .6 x 2.4 x 2.0 cm. Posterior uterine body, subserosal, 1.9 x 1.9 x 1 .6 cm. Right uterine body, intramural, 3.3 x 2.0 x 2.1 cm. Left vent ral uterine body, intramural, 1.6 x 1.6 x 1.1 cm. Left anterior uterine collin dy, subserosal, 1.8 x 1.3 x 1.3 cm. Fundus, subserosal, 1.2 x 1.2 x 1.0 cm . Endometrium is estimated 4 mm AP thickness. Right ovary: N ormal right ovary not identified. There is a circumscribed right adnexal mass, predominantly fat signal intensity with internal components of inter mediate T1 and T2 signal intensity measuring approximately 5.7 x 4.2 x 4.3 cm. Postcontrast images with thin enhancing rim and enhancement of adjac ent adnexal structures. Left ovary: Small volume of residual ovari an tissue measuring 1.9 x 1.0 x 1.7 cm. No left adnexal mass. Bladder: Normal. Lymph nodes: Normal. Marrow sign al intensity: Normal. PAGE 1 Signed Report (CONTINUED) FAX: Mert Taylor MD [phone] [place]: St: ADM FAX: Torsten Reilly MD [phone] Name: JAUN BOWSER [facility] : 8 Age/S: 63/F [address] [place] [address] Unit #: [id number] Loc: [address] [address] Phys: Torsten De La Cruz MD Acct: [id number] Dis Date: Status: ADM IN PHONE #: [phone] Exam Date: 11/13/2019 1330 FAX #: [phone] Reason: adnexal mass EXAMS: CPT CODE: [id number] MRI PELVIS W W/O CONT 90072 <Continued> Additional comments: No free intraperitoneal fluid. IMPRESSION: 1. Right ovarian dermoid--mature teratoma. 2. Multiple uterine masses compatible with fibroids. SL: LATASHA at 1717 Reported and signed by: Gabo Andrew M.D. CC: Mert Medina M.D.; Torsten De La Cruz MD Technologist: Mei White, RT(MR)(CT); Alisson Miller, RT(MR) Trnscrd Date/Time/By: 11/13/2019 (3343) : By: BakariKWL Orig Print D/T: S: 11/13/2019 (1284) PAGE 2 Signed Report GLUBED 2019-11-13 16:53:00* Test Item Value Reference Range Interpretation Comments GLUBED (test code = GLUBED) 258 MG/DL 70-110 H Performed by certified draw bench operator helper at [facility] [id number] 16:53:00* Test Item Value Reference Range Interpretation Comments GLUBED (test code = GLUBED) 169 MG/DL 70-110 H Performed by certified draw bench operator helper at [facility] - MRI ABDOMEN W W/O [id number] 16:39:00 FAX: Mert Taylor MD [phone] [place]: St: ADM FAX: Torsten Reilly MD [phone] Name: JAUN HART [facility] : 1955 Age/S: 63/F [address] [place] [address] Unit #: [id number] Loc: [address] [place] [address] Phys: Torsten De La Cruz MD Acct: [id number] Dis Date: Status: ADM IN PHONE #: [phone] Exam Date: 11/13/2019 1230 FAX #: [phone] Reason: renal mass EXAMS: CPT CODE: [id number] MRI ABDOMEN W W/O CONT 21077 PROCEDURE: MRI ABDOMEN WITH AND WITHOUT CONTRAST I NDICATION: 63-year-old female with incidental right renal mass on CT. MRI requested for further evaluation. COMPARISON: CT without contrast 11/11/2019. TECHNIQUE: Pre-and postcontrast dynamic T1-weighted gra dient echo and T2-weighted sequences were acquired. Diffusion-weighted jose ging performed. IV CONTRAST: 16 mL Dotarem LIMITATIONS : None. FINDINGS: LIVER: Incompletely imaged on all pulse s equences on this examination tailored for survey of the kidneys. Otherwis e, normal liver contours, morphology and signal characteristics. No suspi cious liver lesions. The portal venous system is patent. BI LIARY TREE: No biliary dilatation. Common duct 6 mm diameter. No intralu melva filling defects. GALLBLADDER: Cholecystectomy. SPLEEN: Normal, 10.8 cm in length. PANCREAS: Normal. ADRENAL GLANDS: Circumscribed 1.5 x 1.5 cm left adrenal nodule, intermed iate T2 signal intensity with intermediate T1 signal intensity in phase de monstrating diffuse marked signal drop out of phase indicating intracellul ar lipid. Enhancement of this nodule with visible subjective washout of c ontrast. The right adrenal is normal. KIDNEYS: There is a partial ly exophytic circumscribed mass upper pole right kidney corresponding to f indings at CT measuring 3.4 x 2.5 x 2.7 cm. Heterogeneous T2 hyperintensi ty and heterogeneous T1 hypointensity precontrast. The lesion demonstrate s heterogeneous enhancement during arterial and delayed phases with compon ent of peripheral washout. There is no visible extension into the renal sinus or beyond the perinephric space. Nonenhancing simple cortical cysts, largest lateral right mid kidney 1.5 x 1.5 cm. The left kidney is normal. There is no hydronephrosis. PAGE 1 Signed Report (CONTINUED) FAX: Mert Taylor MD [phone] [place]: St: [facility] FAX: Torsten Reilly MD [phone] -- N gerard: JAUN HART [facility] : 1955 Age/S: 63/F [address] [place] [address] Unit #: [id number] Loc: [address] [address] Phys: Torsten De La Cruz MD Acct: [id number] Dis D ate: Status: ADM IN PHONE #: Exam Date: 11/13/2019 1230 FAX #: Reason: renal mass EXAMS: CPT CODE: [id number] MRI ABDOMEN W W/O CONT 25945 <Continued> RETROPERITONEUM: The renal veins are patent. Retroaortic left renal vein, anatomic variant. The aorta and IVC are unremarkable. LYMPH NODES: No adenopathy. MARROW SIGNAL INTENSITY: Normal. Additional comments: No free intraperitoneal fluid. IMPRESSION: 1. Right renal mass compatible with renal cell carcinoma. Oncocytoma and other neoplasms in the differential. No regional lym phadenopathy or evidence for metastatic disease. 2. Simple righ t renal cortical cysts. 3. Lipid rich left adrenal adenoma. SL: LATASHA at 1639 Reported and signed by: Gabo Andrew M.D. CC: Mert Medina M.D.; Torsten De La Cruz MD Technologist: Altagracia White, RT(MR)(CT); Alisson Miller, RT(MR) Trnscrd Date/Time/By: 2019 (5569) : By: Aba Orig Print D/T: S: 11/13/2019 (9674) PAGE 2 Signed Report HGBA1C%2019-11-13 12:26:00* Test Item Value Reference Range Interpretation Comments HGBA1C% (test code = HGBA1C%) 7.4 %A1C 4.8-6.0 H COMMENTS: add on to today's blood [id number] 07:49:00* Test Item Value Reference Range Interpretation Comments GLUBED (test code = GLUBED) 124 MG/DL 70-110 H Performed by certified draw bench operator helper at [facility] BASIC METABOLIC [id number] 04:44:00* Test Item Value Reference Range Interpretation Comments SODIUM (test code = NA) 140 mEq/L 134-147 N POTASSIUM (test code = K) 4.2 mEq/L 3.4-5.0 N CHLORIDE (test code = CL) 110 mEq/L 100-108 H CARBON DIOXIDE (test code = CO2) 25 mEq/L 21-33 N ANION GAP (test code = GAP) 9 0-20 N GLUCOSE (test code = GLU) 142 mg/dL 70-110 H BLOOD UREA NITROGEN (test code = BUN) 19 mg/dL 7-18 H GLOMERULAR FILTRATION RATE (test code = GFR) 41.6 80-90 L Units of measure = ml/min/1.73 m2 CREATININE (test code = CREAT) 1.3 mg/dL 0.6-1.3 N CALCIUM (test code = CA) 8.8 mg/dL 8.0-10.5 N [id number] 04:44:00* Test Item Value Reference Range Interpretation Comments PHOSPHOROUS (test code = PHOS) 3.3 MG/DL 2.5-4.9 N [id number] 04:44:00* Test Item Value Reference Range Interpretation Comments MAGNESIUM (test code = MAG) 1.80 mg/dL 1.8-2.4 N CBC W/AUTO [id number] 04:33:00* Test Item Value Reference Range Interpretation Comments WHITE BLOOD CELL (test code = WBC) 8.09 x10 3/uL 4.5-11.0 N RED BLOOD CELL (test code = RBC) 4.69 x10 6/uL 3.54-5.02 N HEMOGLOBIN (test code = HGB) 12.7 g/dL 11.0-15.0 N HEMATOCRIT (test code = HCT) 40.9 % 33.0-45.0 N MEAN CELL VOLUME (test code = MCV) 87.2 fL 81.0-99.0 N MEAN CELL HGB (test code = MCH) 27.1 pg 27.0-33.0 N MEAN CELL HGB CONCETRATION (test code = MCHC) 31.1 g/dL 33.0-37. 0 L RED CELL DISTRIBUTION WIDTH CV (test code = RDW) 13.3 % 11.5- 14.5 N RED CELL DISTRIBUTION WIDTH SD (test code = RDW-SD) 42.3 fL 37 .0-54.0 N PLATELET COUNT (test code = PLT) 297 x10 3/uL 150-400 N MEAN PLATELET VOLUME (test code = MPV) 10.4 fL 7.0-9.0 H NEUTROPHIL % (test code = NT%) 64.9 % 56.0-77.0 N IMMATURE GRANULOCYTE % (test code = IG%) 0.4 % 0.0-2.0 N LYMPHOCYTE % (test code = LY%) 22.7 % 14.0-32.0 N MONOCYTE % (test code = MO%) 5.7 % 4.8-9.0 N EOSINOPHIL % (test code = EO%) 5.8 % 0.3-3.7 H BASOPHIL % (test code = BA%) 0.5 % 0.0-2.0 N NUCLEATED RBC % (test code = NRBC%) 0.0 % 0-0 N NEUTROPHIL # (test code = NT#) 5.25 x10 3/uL 2.0-7.6 N IMMATURE GRANULOCYTE # (test code = IG#) 0.03 x10 3/uL 0.00-0.03 N LYMPHOCYTE # (test code = LY#) 1.84 x10 3/uL 1.0-3.8 N MONOCYTE # (test code = MO#) 0.46 x10 3/uL 0.1-0.8 N EOSINOPHIL # (test code = EO#) 0.47 x10 3/uL 0.0-0.2 H BASOPHIL # (test code = BA#) 0.04 x10 3/uL 0.0-0.2 N NUCLEATED RBC # (test code = NRBC#) 0.00 x10 3/uL 0.0-0.1 N MANUAL DIFF REQUIRED (test code = MDIFF) NO [id number] 19:28:00* Test Item Value Reference Range Interpretation Comments GLUBED (test code = GLUBED) 226 MG/DL 70-110 H Performed by certified draw bench operator helper at [facility] [id number] 17:21:00* Test Item Value Reference Range Interpretation Comments GLUBED (test code = GLUBED) 196 MG/DL 70-110 H Performed by certified draw bench operator helper at [facility] [id number] 17:14:00* Test Item Value Reference Range Interpretation Comments GLUBED (test code = GLUBED) 158 MG/DL 70-110 H Performed by certified draw bench operator helper at [facility] UR PROTEIN [id number] 13:14:00* Test Item Value Reference Range Interpretation Comments UR PROTEIN RANDOM (test code = PROTU) 16 mg/dL Note: Change in UNITS of MEASUREMENT. The Reference Range and Method Performance specificationshave not been established for this fluid. The test resultshould be correlated into the clinical context forinterpretation. UR CREATININE [id number] 13:14:00* Test Item Value Reference Range Interpretation Comments UR CREATININE RANDOM (test code = CREATU) 36.7 mg/dL The Reference Range and Method Performance specificationshave not been established for this fluid. The test resultshould be correlated into the clinical context forinterpretation. BASIC METABOLIC [id number] 10:19:00* Test Item Value Reference Range Interpretation Comments SODIUM (test code = NA) 141 mEq/L 134-147 N POTASSIUM (test code = K) 4.0 mEq/L 3.4-5.0 N CHLORIDE (test code = CL) 110 mEq/L 100-108 H CARBON DIOXIDE (test code = CO2) 26 mEq/L 21-33 N ANION GAP (test code = GAP) 9 0-20 N GLUCOSE (test code = GLU) 165 mg/dL 70-110 H BLOOD UREA NITROGEN (test code = BUN) 19 mg/dL 7-18 H GLOMERULAR FILTRATION RATE (test code = GFR) 35.3 80-90 L Units of measure = ml/min/1.73 m2 CREATININE (test code = CREAT) 1.5 mg/dL 0.6-1.3 H CALCIUM (test code = CA) 8.6 mg/dL 8.0-10.5 N [id number] 10:19:00* Test Item Value Reference Range Interpretation Comments MAGNESIUM (test code = MAG) 2.00 mg/dL 1.8-2.4 N CBC W/AUTO [id number] 10:01:00* Test Item Value Reference Range Interpretation Comments WHITE BLOOD CELL (test code = WBC) 8.23 x10 3/uL 4.5-11.0 N RED BLOOD CELL (test code = RBC) 4.35 x10 6/uL 3.54-5.02 N HEMOGLOBIN (test code = HGB) 12.0 g/dL 11.0-15.0 N HEMATOCRIT (test code = HCT) 38.1 % 33.0-45.0 N MEAN CELL VOLUME (test code = MCV) 87.6 fL 81.0-99.0 N MEAN CELL HGB (test code = MCH) 27.6 pg 27.0-33.0 N MEAN CELL HGB CONCETRATION (test code = MCHC) 31.5 g/dL 33.0-37. 0 L RED CELL DISTRIBUTION WIDTH CV (test code = RDW) 13.2 % 11.5- 14.5 N RED CELL DISTRIBUTION WIDTH SD (test code = RDW-SD) 42.4 fL 37 .0-54.0 N PLATELET COUNT (test code = PLT) 272 x10 3/uL 150-400 N MEAN PLATELET VOLUME (test code = MPV) 10.2 fL 7.0-9.0 H NEUTROPHIL % (test code = NT%) 70.2 % 56.0-77.0 N IMMATURE GRANULOCYTE % (test code = IG%) 0.4 % 0.0-2.0 N LYMPHOCYTE % (test code = LY%) 20.7 % 14.0-32.0 N MONOCYTE % (test code = MO%) 4.6 % 4.8-9.0 L EOSINOPHIL % (test code = EO%) 3.6 % 0.3-3.7 N BASOPHIL % (test code = BA%) 0.5 % 0.0-2.0 N NUCLEATED RBC % (test code = NRBC%) 0.0 % 0-0 N NEUTROPHIL # (test code = NT#) 5.78 x10 3/uL 2.0-7.6 N IMMATURE GRANULOCYTE # (test code = IG#) 0.03 x10 3/uL 0.00-0.03 N LYMPHOCYTE # (test code = LY#) 1.70 x10 3/uL 1.0-3.8 N MONOCYTE # (test code = MO#) 0.38 x10 3/uL 0.1-0.8 N EOSINOPHIL # (test code = EO#) 0.30 x10 3/uL 0.0-0.2 H BASOPHIL # (test code = BA#) 0.04 x10 3/uL 0.0-0.2 N NUCLEATED RBC # (test code = NRBC#) 0.00 x10 3/uL 0.0-0.1 N MANUAL DIFF REQUIRED (test code = MDIFF) NO [id number] 08:09:00* Test Item Value Reference Range Interpretation Comments GLUBED (test code = GLUBED) 116 MG/DL 70-110 H Performed by certified draw bench operator helper at [facility] - CT ABD PELVIS W/O [id number] 21:31:00 Name: JAUN HART [facility] : 1955 Age/S: 63 / F [address] [place] [address] Unit #: [id number] Loc: [place] [address] Phys: Javier Boles DO Acct: [id number] Dis Date: Status: REG ER PHONE #: [phone] Exam Date: 11/11/20192108 FAX #: [phone] Reason: abd pain distention EXAMS: CPT CODE: [id number] CT ABD PELVIS W/O CONT 87581 PROCEDURE: CT ABDOMEN AND PELVIS WITHOUT CONTRAST INDICATION: Abdominal pain. Distention. Diarrhea. COMPARISON: There are no previous relevant studies available for correlation. TECHNIQUE: Helical imaging was performed diaphragm through the symphysis with multiplanar reconstructions. IV CONTRAST: None. GI CONTRAST: None. CT imaging performed at this location utilizes radiation dose optimization techniques which include one or more of the following: -Automated exposure control -Adjustment of the mA and/or kV according to patient size -Use of iterative reconstruction technique CT Radiation Dose DLP 655.81 mGy-cm LIMITATIONS: Evaluation of abdominal viscera and vascular structures may be limited by the lack of intravenous contrast. FINDINGS: LOWER CHEST: There is a 1.9 x 1.6 cm soft tissue attenuation mass in the central left breast partially imaged on this exam. The lung bases are clear. LIVER: Normal. BILIARY TREE: No biliary dilatation. GALLBLADDER: Cholecystectomy. SPLEEN: Normal. PANCREAS: Normal. ADRENALS: There is a circumscribed 1.6 x 1.4 x 1.3 cm left adrenal nodule with attenuation values of slightly less than 0 compatible with intracellular lipid. The right adrenal is normal. KIDNEYS: There is a partially exophytic heterogeneous attenuation mass upper pole right kidney measuring 3.1 x 2.8 x 2.8 cm. No lipid atten uation components or calcifications. No regional inflammation. There is a 1.6 cm water attenuation lesion lateral cortex mid right kidney compatib le with benign cyst. The left renal contours are PAGE 1 Signed Report (CONTINUED) Name: JAUN HART [facility] : 1955 Age/S: 63 / F [address] [place] [address] Unit #: [id number] Loc: [place] [address] Phys: Javier Boles DO Acct: [id number] Dis Date: Status: R EG ER PHONE #: [phone] Exam Date: 01/2020 FAX #: [phone] Reason: abd pain diste ntion EXAMS: CPT CODE: [id number] CT ABD PELVIS W/O CONT 7 4176 <Continued> normal. There are no urinary calculi. No hydronephrosis or perinephric stranding. BOWEL: The unopacified stomach, small bowel and colon are unremarkable. Moderate volume of fecal material throughout the colon. Scattered colonic diverticula without inflammatory changes. APPENDIX: No evidence for appendicitis. PERITONEUM: No free intraperitoneal fluid or air. RETROPERITONEUM: There is no adenopathy or retroperitoneal fluid collection. Scattered calcified plaque abdominal aorta. Retroaortic left renal vein, anatomic variant. PELVIS: There is a circumscribed right adnexal mass measuring 5.6 x 4.5 x 4.6 cm, predominantly fat attenuation with globular internal soft tissue attenuation components. No calcification. No regional inflammatory oliver ges. The uterus demonstrates lobulated contours compatible with multiple isoattenuating mass lesions. Subserosal mass off the posterior uterus 2.4 cm. There is a single coarse calcification in the left uterine body. Ur inary bladder is unremarkable. There is no pelvic adenopathy. MUSCULOSKELETAL: There are multilevel degenerative changes of the spine . Endplate sclerosis T11-12. Grade 1 anterolisthesis L5-S1 with degenera tive disc changes and facet arthropathy. There are no aggressive lytic or blastic lesions. IMPRESSION: 1. No acute findings to account for the patient's symptoms. 2. Incidental left breast mass, 1.9 cm. If not recently obtained, recommend further evaluation with diagno stic mammography and breast ultrasound. 3. Incidental right rafa al mass, heterogeneous attenuation and suspicious for neoplasm. If not recently obtained, recommend further evaluation with renal protocol CT o r MRI. 4. Incidental left adrenal lipid rich adenoma. No further mitchell p required. 5. Incidental right ovarian dermoid. No regional i nflammation or other CT evidence for torsion. Clinical correlation is n eeded with further evaluation by pelvic ultrasound if indicated. 6. Lobulated uterus compatible with multiple myometrial masses incompl etely characterized. If not recently obtained, further imaging PAGE 2 Signed Report (CONTINUED) Name: MARIO HART [facility] : 1955 Age/ S: 63 / F [address] [place] [address] Bl Unit #: [id number] Loc: [place] [address] Phys: Javier Boles DO Acct: [id number] Dis Date: Status: REG ER PHONE #: [phone] E xam Date: 11/11/20192108 FAX #: [phone] Reason: abd pain distention EXAMS: CPT CODE: [id number] CT ABD PELVIS W/O CONT 62405 <Continued> options include follow-up nonemergent pelvic ultrasound. 7. Other nonemergent findings as above. A verbal report was called to Javier Boles DO on 11/11/2019 9:28 PM. SL: LATASHA at 213 Reported and signed by: Gabo Andrew M.D. CC: Javier Boles DO; Mert Medina M.D. Technologist:RT Rickey(R)(CT); Mayrcarmen CTDI: DLP: Trnscb Date/Time: 11/11/2019 (2130) Aba Orig Print D/T: S: 11/11/2019 (2133) PAGE 3 Signed Report BASIC METABOLIC [id number] 20:59:00* Test Item Value Reference Range Interpretation Comments SODIUM (test code = NA) mEq/L 134-147 POTASSIUM (test code = K) mEq/L 3.4-5.0 CHLORIDE (test code = CL) mEq/L 100-108 CARBON DIOXIDE (test code = CO2) mEq/L 21-33 ANION GAP (test code = GAP) 0-20 GLUCOSE (test code = GLU) mg/dL 70-110 BLOOD UREA NITROGEN (test code = BUN) mg/dL 7-18 GLOMERULAR FILTRATION RATE (test code = GFR) 80-90 CREATININE (test code = CREAT) mg/dL 0.6-1.3 CALCIUM (test code = CA) mg/dL 8.0-10.5 HEPATIC FUNCTION [id number] 20:59:00* Test Item Value Reference Range Interpretation Comments TOTAL PROTEIN (test code = PROT) g/dL 6.4-8.2 ALBUMIN (test code = ALB) g/dL 3.4-5.0 BILIRUBIN TOTAL (test code = BILT) MG/DL <1.5 BILIRUBIN DIRECT (test code = BILD) MG/DL 0.0-0.30 SGOT/AST (test code = AST) IUnit/L 15-37 SGPT/ALT (test code = ALT) IUnit/L 15-65 ALKALINE PHOSPHATASE TOTAL (test code = ALKP) IUnit/L 20-125 [id number] 20:59:00* Test Item Value Reference Range Interpretation Comments LIPASE (test code = LIP) IUnit/L 73-393 [id number] 20:59:00* Test Item Value Reference Range Interpretation Comments TROPONIN-I (test code = TROPI) < 0.015 ng/mL 0.000-0.045 N Negative: <= 0.045 Positive: >= 0.046 Correlation with serial results, other cardiac markers andclinical findings is necessary to determine the clinicalsignificance of this result. Results using different methodologies should not be comparedto one another as quantitative results may vary by method. BASIC METABOLIC [id number] 20:59:00* Test Item Value Reference Range Interpretation Comments SODIUM (test code = NA) 136 mEq/L 134-147 N POTASSIUM (test code = K) 4.2 mEq/L 3.4-5.0 N CHLORIDE (test code = CL) 112 mEq/L 100-108 H CARBON DIOXIDE (test code = CO2) 26 mEq/L 21-33 N ANION GAP (test code = GAP) 2 0-20 N GLUCOSE (test code = GLU) 100 mg/dL 70-110 N BLOOD UREA NITROGEN (test code = BUN) 22 mg/dL 7-18 H GLOMERULAR FILTRATION RATE (test code = GFR) 26.9 80-90 L Units of measure = ml/min/1.73 m2 CREATININE (test code = CREAT) 1.9 mg/dL 0.6-1.3 H CALCIUM (test code = CA) 9.2 mg/dL 8.0-10.5 N HEPATIC FUNCTION [id number] 20:59:00* Test Item Value Reference Range Interpretation Comments TOTAL PROTEIN (test code = PROT) 7.6 g/dL 6.4-8.2 N ALBUMIN (test code = ALB) 3.60 g/dL 3.4-5.0 N BILIRUBIN TOTAL (test code = BILT) 0.3 MG/DL <1.5 N BILIRUBIN DIRECT (test code = BILD) < 0.10 MG/DL 0.0-0.30 N BILIRUBIN INDIRECT (test code = BILIND) 0.20 MG/DL SGOT/AST (test code = AST) 22 IUnit/L 15-37 N SGPT/ALT (test code = ALT) 55 IUnit/L 15-65 N ALKALINE PHOSPHATASE TOTAL (test code = ALKP) 132 IUnit/L 20-125 H [id number] 20:59:00* Test Item Value Reference Range Interpretation Comments LIPASE (test code = LIP) 466 IUnit/L 73-393 H [id number] 20:59:00* Test Item Value Reference Range Interpretation Comments TROPONIN-I (test code = TROPI) < 0.015 ng/mL 0.000-0.045 N Negative: <= 0.045 Positive: >= 0.046 Correlation with serial results, other cardiac markers andclinical findings is necessary to determine the clinicalsignificance of this result. Results using different methodologies should not be comparedto one another as quantitative results may vary by method. CBC W/AUTO [id number] 20:46:00* Test Item Value Reference Range Interpretation Comments WHITE BLOOD CELL (test code = WBC) 10.55 x10 3/uL 4.5-11.0 N RED BLOOD CELL (test code = RBC) 4.93 x10 6/uL 3.54-5.02 N HEMOGLOBIN (test code = HGB) 13.7 g/dL 11.0-15.0 N HEMATOCRIT (test code = HCT) 42.9 % 33.0-45.0 N MEAN CELL VOLUME (test code = MCV) 87.0 fL 81.0-99.0 N MEAN CELL HGB (test code = MCH) 27.8 pg 27.0-33.0 N MEAN CELL HGB CONCETRATION (test code = MCHC) 31.9 g/dL 33.0-37. 0 L RED CELL DISTRIBUTION WIDTH CV (test code = RDW) 13.2 % 11.5- 14.5 N RED CELL DISTRIBUTION WIDTH SD (test code = RDW-SD) 41.7 fL 37 .0-54.0 N PLATELET COUNT (test code = PLT) 314 x10 3/uL 150-400 N MEAN PLATELET VOLUME (test code = MPV) 10.7 fL 7.0-9.0 H NEUTROPHIL % (test code = NT%) 68.8 % 56.0-77.0 N IMMATURE GRANULOCYTE % (test code = IG%) 0.5 % 0.0-2.0 N LYMPHOCYTE % (test code = LY%) 20.2 % 14.0-32.0 N MONOCYTE % (test code = MO%) 4.5 % 4.8-9.0 L EOSINOPHIL % (test code = EO%) 5.3 % 0.3-3.7 H BASOPHIL % (test code = BA%) 0.7 % 0.0-2.0 N NUCLEATED RBC % (test code = NRBC%) 0.0 % 0-0 N NEUTROPHIL # (test code = NT#) 7.26 x10 3/uL 2.0-7.6 N IMMATURE GRANULOCYTE # (test code = IG#) 0.05 x10 3/uL 0.00-0.03 H LYMPHOCYTE # (test code = LY#) 2.13 x10 3/uL 1.0-3.8 N MONOCYTE # (test code = MO#) 0.48 x10 3/uL 0.1-0.8 N EOSINOPHIL # (test code = EO#) 0.56 x10 3/uL 0.0-0.2 H BASOPHIL # (test code = BA#) 0.07 x10 3/uL 0.0-0.2 N NUCLEATED RBC # (test code = NRBC#) 0.00 x10 3/uL 0.0-0.1 N MANUAL DIFF REQUIRED (test code = MDIFF) NO UA RFLX MICR CULT IF [id number] 20:15:00* Test Item Value Reference Range Interpretation Comments UA COLOR (test code = COLU) YELLOW YEL/STRAW UA APPEARANCE (test code = APPU) CLEAR CLEAR UA GLUCOSE DIPSTICK (test code = DGLUU) NEGATIVE NEGATIVE UA BILIRUBIN DIPSTICK (test code = BILU) NEGATIVE NEGATIVE UA KETONE DIPSTICK (test code = KETU) NEGATIVE NEGATIVE UA SPECIFIC GRAVITY (test code = SGU) 1.014 1.005-1.030 N UA BLOOD DIPSTICK (test code = DANIE) NEGATIVE NEGATIVE UA PH DIPSTICK (test code = VIDYA) 5.0 5.0-7.0 N UA PROTEIN DIPSTICK (test code = PROU) NEGATIVE NEGATIVE UA UROBILINIOGEN DIPSTICK (test code = URO) 0.2 mg/dL 0.2-1.0 UA NITRITE DIPSTICK (test code = HYACINTH) NEGATIVE NEGATIVE UA LEUKOCYTE ESTERASE DIPSTICK (test code = LEUU) 2+ NEGA TIVE A UA WBC (test code = WBCU) 10-20 WBC/HPF 0-3 A UA RBC (test code = RBCU) 0-3 RBC/HPF 0-3 UA WBC NO REFLEX (test code = WBCUCL) 10-20 WBC/HPF 0-3 A UA BACTERIA (test code = BACU) TRACE /HPF NONE SEEN UA SQUAMOUS CELLS (test code = SQU) 6-10 /HPF NONE SEEN A UA HYALINE CAST (test code = HYALU) 3-5 /LPF NONE SEEN UA MUCUS (test code = MUCU) 1+ /LPF NONE SEEN Indication for culture: Suprapubic PainSpecimen Description: CLEAN CATCH- XR CHEST 2 [id number] 16:34:00 FAX: Mert Taylor MD [phone] [place]: St: PRE FAX: Buck Vidal MD [phone] Name: JAUN HART [facility] : 1955 Age/S: 63/F [address] [place] [address] Unit #: [id number] Loc: [place] [address] Phys: Buck Vidal MD Acct: [id number] Dis Date: Status: PRE ER PHONE #: [phone] Exam Date: 08/24/2019 1632 FAX #: [phone] Reason: Chest Pain EXAMS: CPT CODE: [id number] XR CHEST 2 V 83772 Clinical Indication: Chest pain. Comparison: 03/29/2019. Impression: Chest, 2 views. Lungs are clear. No consolidation, pleural effusion, or pneumothorax. Cardiomediastinal silhouette is unremarkable. No acute osseous abnormality. SL: [id number] at 1634 Reported and signed by: Rubia Cassidy M.D. CC: Mert Medina M.D.; Buck Vidal MD Technologist: RT Jeremy(Harvey) Trnscrd Date/Time/By: 08/24/2019 (1633) : By: [email or web address] Orig Print D/T: S: 08/24/2019 (3094) PAGE 1 Signed Report BASIC METABOLIC [id number] 16:32:00* Test Item Value Reference Range Interpretation Comments SODIUM (test code = NA) 142 mEq/L 134-147 N POTASSIUM (test code = K) 3.9 mEq/L 3.4-5.0 N CHLORIDE (test code = CL) 109 mEq/L 100-108 H CARBON DIOXIDE (test code = CO2) 26 mEq/L 21-33 N ANION GAP (test code = GAP) 11 0-20 N GLUCOSE (test code = GLU) 105 mg/dL 70-110 N BLOOD UREA NITROGEN (test code = BUN) 18 mg/dL 7-18 N GLOMERULAR FILTRATION RATE (test code = GFR) 38.2 80-90 L Units of measure = ml/min/1.73 m2 CREATININE (test code = CREAT) 1.4 mg/dL 0.6-1.3 H CALCIUM (test code = CA) 9.4 mg/dL 8.0-10.5 N HEPATIC FUNCTION [id number] 16:32:00* Test Item Value Reference Range Interpretation Comments TOTAL PROTEIN (test code = PROT) 7.8 g/dL 6.4-8.2 N ALBUMIN (test code = ALB) 3.70 g/dL 3.4-5.0 N BILIRUBIN TOTAL (test code = BILT) 0.5 MG/DL <1.5 N BILIRUBIN DIRECT (test code = BILD) 0.10 MG/DL 0.0-0.30 N BILIRUBIN INDIRECT (test code = BILIND) 0.40 MG/DL SGOT/AST (test code = AST) 15 IUnit/L 15-37 N SGPT/ALT (test code = ALT) 28 IUnit/L 15-65 N ALKALINE PHOSPHATASE TOTAL (test code = ALKP) 100 IUnit/L 20-125 N [id number] 16:32:00* Test Item Value Reference Range Interpretation Comments LIPASE (test code = LIP) 180 IUnit/L 73-393 N TSH REFLEX TO [id number] 16:32:00* Test Item Value Reference Range Interpretation Comments TSH REFLEX TO FT4 (test code = TSHREFLEX) 1.40 IU/mL 0.42-5.47 N BASIC METABOLIC [id number] 16:17:00* Test Item Value Reference Range Interpretation Comments SODIUM (test code = NA) 142 mEq/L 134-147 N POTASSIUM (test code = K) 3.9 mEq/L 3.4-5.0 N CHLORIDE (test code = CL) 109 mEq/L 100-108 H CARBON DIOXIDE (test code = CO2) 26 mEq/L 21-33 N ANION GAP (test code = GAP) 11 0-20 N GLUCOSE (test code = GLU) 105 mg/dL 70-110 N BLOOD UREA NITROGEN (test code = BUN) 18 mg/dL 7-18 N GLOMERULAR FILTRATION RATE (test code = GFR) 80-90 CREATININE (test code = CREAT) mg/dL 0.6-1.3 CALCIUM (test code = CA) 9.4 mg/dL 8.0-10.5 N HEPATIC FUNCTION [id number] 16:17:00* Test Item Value Reference Range Interpretation Comments TOTAL PROTEIN (test code = PROT) g/dL 6.4-8.2 ALBUMIN (test code = ALB) g/dL 3.4-5.0 BILIRUBIN TOTAL (test code = BILT) MG/DL <1.5 BILIRUBIN DIRECT (test code = BILD) MG/DL 0.0-0.30 SGOT/AST (test code = AST) IUnit/L 15-37 SGPT/ALT (test code = ALT) IUnit/L 15-65 ALKALINE PHOSPHATASE TOTAL (test code = ALKP) IUnit/L 20-125 [id number] 16:17:00* Test Item Value Reference Range Interpretation Comments LIPASE (test code = LIP) 180 IUnit/L 73-393 N TSH REFLEX TO [id number] 16:17:00* Test Item Value Reference Range Interpretation Comments TSH REFLEX TO FT4 (test code = TSHREFLEX) IU/mL 0.42-5.47 TROPONIN-I [id number] 16:09:00* Test Item Value Reference Range Interpretation Comments TROPONIN-I RAPID (test code = TROPIRAP) 0.01 ng/mL 0.00-0.08 N Performed by certified draw bench operator helper at [facility] Negative: <= 0.08 Positive: >= 0.09An elevated troponin value alone is not sufficient todiagnose a myocardial infarction. Rather, the patient sclinical presentation (history, physical exam) and ECGshould be used in conjunction with troponin in thediagnostic evaluation of suspected myocardial infarction. Aserial sampling protocol is recommended to facilitate the identification of temporal changes in troponin levels characteristic of GA. CBC W/AUTO [id number] 16:08:00* Test Item Value Reference Range Interpretation Comments WHITE BLOOD CELL (test code = WBC) 9.40 x10 3/uL 4.5-11.0 N RED BLOOD CELL (test code = RBC) 5.20 x10 6/uL 3.54-5.02 H HEMOGLOBIN (test code = HGB) 14.1 g/dL 11.0-15.0 N HEMATOCRIT (test code = HCT) 44.3 % 33.0-45.0 N MEAN CELL VOLUME (test code = MCV) 85.2 fL 81.0-99.0 N MEAN CELL HGB (test code = MCH) 27.1 pg 27.0-33.0 N MEAN CELL HGB CONCETRATION (test code = MCHC) 31.8 g/dL 33.0-37. 0 L RED CELL DISTRIBUTION WIDTH CV (test code = RDW) 13.2 % 11.5- 14.5 N RED CELL DISTRIBUTION WIDTH SD (test code = RDW-SD) 40.7 fL 37 .0-54.0 N PLATELET COUNT (test code = PLT) 345 x10 3/uL 150-400 N MEAN PLATELET VOLUME (test code = MPV) 10.0 fL 7.0-9.0 H NEUTROPHIL % (test code = NT%) 70.5 % 56.0-77.0 N IMMATURE GRANULOCYTE % (test code = IG%) 0.4 % 0.0-2.0 N LYMPHOCYTE % (test code = LY%) 21.8 % 14.0-32.0 N MONOCYTE % (test code = MO%) 3.5 % 4.8-9.0 L EOSINOPHIL % (test code = EO%) 3.3 % 0.3-3.7 N BASOPHIL % (test code = BA%) 0.5 % 0.0-2.0 N NUCLEATED RBC % (test code = NRBC%) 0.0 % 0-0 N NEUTROPHIL # (test code = NT#) 6.62 x10 3/uL 2.0-7.6 N IMMATURE GRANULOCYTE # (test code = IG#) 0.04 x10 3/uL 0.00-0.03 H LYMPHOCYTE # (test code = LY#) 2.05 x10 3/uL 1.0-3.8 N MONOCYTE # (test code = MO#) 0.33 x10 3/uL 0.1-0.8 N EOSINOPHIL # (test code = EO#) 0.31 x10 3/uL 0.0-0.2 H BASOPHIL # (test code = BA#) 0.05 x10 3/uL 0.0-0.2 N NUCLEATED RBC # (test code = NRBC#) 0.00 x10 3/uL 0.0-0.1 N MANUAL DIFF REQUIRED (test code = MDIFF) NO - XR L-SPINE 06/07 [id number] 17:59:00 FAX: Mert Taylor MD [phone] [place]: St: [facility] FAX: Rachele Hodge NP [phone] Name: JAUN HART [facility] [place] : 1955 Age/S: 63/F [address] [place] [address] Unit #: [id number] Loc: [place] [address] Phys: Rachele Hodge PRODUCTION ENGINEER Acct: [id number] Dis Date: Status: REG ER PHONE #: [phone] Exam Date: 05/29/20191751 FAX #: [phone] Reason: acute low back and r hip pain EXAMS: CPT CODE: [id number] XR L-SPINE 2/3 VIEWS 15647 PROCEDURE: LUMBAR SPINE 3 VIEWS INDICATION: acute low back and r hip pain COMPARISON: There are no previous releva nt studies available for correlation. FINDINGS: There are 6 lumbar vertebrae. For numbering purposes, the final lumbar segment is con sidered transitional S1 with rim anterior disc the S1-2 level. Vertebral body heights are maintained. Grade 1 anterolisthesis L5-S1. Mild disc sp esperanza narrowing L5-S1. Facet sclerosis lower lumbar levels. The visualized sacrum is intact. The sacroiliac joints are maintained. The soft tissue s are unremarkable. Sclerosis of the visualized superior aspect of T12 ap pears to be associated with degenerative disc changes at the T11-12 level incompletely imaged on this exam. IMPRESSION: 1. Multilevel facet arthropathy. 2. Grade 1 anterolisthesis L5-S1 likely on a degenerative basis. Associated degenerative disc disease at this l evel. 3. Probable advanced degenerative disc changes at the T11-12 leve l incompletely imaged on this exam. If indicated, suggest correlation with thoracic spine radiographs. If there is continued clinical concern, further imaging options include CT and MRI. SL: LATASHA at 1759 Reported and signed by: Gabo Andrew M.D. CC: Mert bonilla M.D.; Rachele Hodge NP Technologist: RT Jessica(R) Trnscrd Date/Time/By: 05/29/2019 (1758) : By: Aba Orig Print D/T: S: 05/29/2019 (3003) PAGE 1 Signed Report - XR HIP IRON [id number] 17:55:00 FAX: Mert Taylor MD [phone] [place]: St: REG FAX: Rachele Hodge NP [phone] Name: JAUN HART [facility] : 1955 Age/S: 63/F [address] [place] [address] Unit #: [id number] [facility] [address] Phys: Rachele Hodge NP Acct: [id number] Dis Date: Status: REG ER PHONE #: [phone] Exam Date: 05/29/20191751 FAX #: [phone] Reason: acute low back and r hip pain EXAMS: CPT CODE: [id number] XR HIP IRON W/PELVIS 68667 Clinical Indication: acute low back and r hip pain; Raheem rison: None FINDINGS: The 2 views of the left hip s how normal alignment without fractures or dislocations. There are no radio -opaque foreign bodies. The acetabulum is unremarkable. The visualized sac roiliac joint and symphysis pubis are unremarkable. The 2 v iews of the right hip show normal alignment without fractures or dislocati ons. There are no radio-opaque foreign bodies. The acetabulum is unremarka ble. The visualized sacroiliac joint and symphysis pubis are unremarkable. If there is further concern, recommend follow-up radiographs or MRI for complete assessment. IMPRESSION: No fract ure or dislocation of the bilateral hips. SL: FOREST at 4930 Reported and sig jae by: Mehul Mora M.D. CC: Mert Adam M.Yanick Hodge NP Technologist: Julissa Arana RT(R) Trnscrd Date/Time/By: 05/29/2019 (5281) : By: BakariLNV Orig Daisy nt D/T: S: 05/29/2019 (4658) PAGE 1 Signed Report [id number] 06:50:00* Test Item Value Reference Range Interpretation Comments GLUBED (test code = GLUBED) 206 MG/DL 70-110 H Performed by certified draw bench operator helper at [facility] TROPONIN-I [id number] 20:39:00* Test Item Value Reference Range Interpretation Comments TROPONIN-I RAPID (test code = TROPIRAP) 0.00 ng/mL 0.00-0.08 N Performed by certified draw bench operator helper at [facility] Negative: <= 0.08 Positive: >= 0.09An elevated troponin value alone is not sufficient todiagnose a myocardial infarction. Rather, the patient sclinical presentation (history, physical exam) and ECGshould be used in conjunction with troponin in thediagnostic evaluation of suspected myocardial infarction. Aserial sampling protocol is recommended to facilitate the identification of temporal changes in troponin levels characteristic of GA. CBC W/AUTO [id number] 19:52:00* Test Item Value Reference Range Interpretation Comments WHITE BLOOD CELL (test code = WBC) 7.10 x10 3/uL 4.5-11.0 N RED BLOOD CELL (test code = RBC) 4.69 x10 6/uL 3.54-5.02 N HEMOGLOBIN (test code = HGB) 12.8 g/dL 11.0-15.0 N HEMATOCRIT (test code = HCT) 41.0 % 33.0-45.0 N MEAN CELL VOLUME (test code = MCV) 87.4 fL 81.0-99.0 N MEAN CELL HGB (test code = MCH) 27.3 pg 27.0-33.0 N MEAN CELL HGB CONCETRATION (test code = MCHC) 31.2 g/dL 33.0-37. 0 L RED CELL DISTRIBUTION WIDTH CV (test code = RDW) 12.8 % 11.5- 14.5 N RED CELL DISTRIBUTION WIDTH SD (test code = RDW-SD) 40.3 fL 37 .0-54.0 N PLATELET COUNT (test code = PLT) 291 x10 3/uL 150-400 N MEAN PLATELET VOLUME (test code = MPV) 10.5 fL 7.0-9.0 H NEUTROPHIL % (test code = NT%) 55.9 % 56.0-77.0 L IMMATURE GRANULOCYTE % (test code = IG%) 0.3 % 0.0-2.0 N LYMPHOCYTE % (test code = LY%) 31.7 % 14.0-32.0 N MONOCYTE % (test code = MO%) 6.9 % 4.8-9.0 N EOSINOPHIL % (test code = EO%) 4.4 % 0.3-3.7 H BASOPHIL % (test code = BA%) 0.8 % 0.0-2.0 N NUCLEATED RBC % (test code = NRBC%) 0.0 % 0-0 N NEUTROPHIL # (test code = NT#) 3.97 x10 3/uL 2.0-7.6 N IMMATURE GRANULOCYTE # (test code = IG#) 0.02 x10 3/uL 0.00-0.03 N LYMPHOCYTE # (test code = LY#) 2.25 x10 3/uL 1.0-3.8 N MONOCYTE # (test code = MO#) 0.49 x10 3/uL 0.1-0.8 N EOSINOPHIL # (test code = EO#) 0.31 x10 3/uL 0.0-0.2 H BASOPHIL # (test code = BA#) 0.06 x10 3/uL 0.0-0.2 N NUCLEATED RBC # (test code = NRBC#) 0.00 x10 3/uL 0.0-0.1 N MANUAL DIFF REQUIRED (test code = MDIFF) NO BASIC METABOLIC [id number] 19:19:00* Test Item Value Reference Range Interpretation Comments SODIUM (test code = NA) 137 mEq/L 134-147 N POTASSIUM (test code = K) 4.2 mEq/L 3.4-5.0 N CHLORIDE (test code = CL) 106 mEq/L 100-108 N CARBON DIOXIDE (test code = CO2) 26 mEq/L 21-33 N ANION GAP (test code = GAP) 9 0-20 N GLUCOSE (test code = GLU) 228 mg/dL 70-110 H BLOOD UREA NITROGEN (test code = BUN) 29 mg/dL 7-18 H GLOMERULAR FILTRATION RATE (test code = GFR) 38.2 80-90 L Units of measure = ml/min/1.73 m2 CREATININE (test code = CREAT) 1.4 mg/dL 0.6-1.3 H CALCIUM (test code = CA) 9.4 mg/dL 8.0-10.5 N TROPONIN-I [id number] 18:49:00* Test Item Value Reference Range Interpretation Comments TROPONIN-I RAPID (test code = TROPIRAP) 0.01 ng/mL 0.00-0.08 N Performed by certified draw bench operator helper at [facility] Negative: <= 0.08 Positive: >= 0.09An elevated troponin value alone is not sufficient todiagnose a myocardial infarction. Rather, the patient sclinical presentation (history, physical exam) and ECGshould be used in conjunction with troponin in thediagnostic evaluation of suspected myocardial infarction. Aserial sampling protocol is recommended to facilitate the identification of temporal changes in troponin levels characteristic of GA. - XR CHEST 1 [id number] 16:45:00 FAX: Mert Taylor MD [phone] [place]: St: PRE FAX: Erin Zhong [phone] Name: JAUN HART [facility] : 1955 Age/S: 63/F [address] [place] [address] Unit #: [id number] Loc: [place] [address] Phys: Erin Sy Acct: [id number] Dis Date: Status: PRE ER PHONE #: [phone] Exam Date: 03/29/2019 1643 FAX #: [phone] Reason: Chest Pain EXAMS: CPT CODE: [id number] XR CHEST 1 V 75630 EXAM: XR CHEST 1 VIEW DATE: 03/29/2019 3:40 PM : 1955; Age: 63 years y/o Female INDICATION: Chest Pain COMPARISON: January 16, 2019 TECHNIQUE: AP chest. IMPRESSION: Lines, tubes and hardware: None. Heart, mediastinum and lungs: The heart size is normal for technique. The mediastinal contours are normal. Pulmonary vascularity is normal. The lungs are clear. SL: [id number] at 1645 Reported and signed by: Jack León D.O. CC: Mert Medina M.D.; Erin LAZCANO Technologist: Tomasa Florez RT(R)(M) Trnscrd Date/Time/By: 03/29/2019 (1644) : By: BakariMP37 Orig Print D/T: S: 03/29/2019 (4807) PAGE 1 Signed Report [id number] 16:12:00* Test Item Value Reference Range Interpretation Comments GLUBED (test code = GLUBED) 323 MG/DL 70-110 H Performed by certified draw bench operator helper at [facility] [id number] 09:19:00* Test Item Value Reference Range Interpretation Comments GLUBED (test code = GLUBED) 219 MG/DL 70-110 H Performed by certified draw bench operator helper at [facility] [id number] 21:17:00* Test Item Value Reference Range Interpretation Comments GLUBED (test code = GLUBED) 333 MG/DL 70-110 H Performed by certified draw bench operator helper at [facility] [id number] 20:48:00* Test Item Value Reference Range Interpretation Comments GLUBED (test code = GLUBED) 230 MG/DL 70-110 H Performed by certified draw bench operator helper at [facility] [id number] 20:26:00* Test Item Value Reference Range Interpretation Comments GLUBED (test code = GLUBED) 263 MG/DL 70-110 H Performed by certified draw bench operator helper at [facility] [id number] 12:30:00* Test Item Value Reference Range Interpretation Comments GLUBED (test code = GLUBED) 204 MG/DL 70-110 H Performed by certified draw bench operator helper at [facility] [id number] 08:21:00* Test Item Value Reference Range Interpretation Comments GLUBED (test code = GLUBED) 181 MG/DL 70-110 H Performed by certified draw bench operator helper at [facility] CBC W/AUTO [id number] 08:20:00* Test Item Value Reference Range Interpretation Comments WHITE BLOOD CELL (test code = WBC) 7.30 x10 3/uL 4.5-11.0 N RED BLOOD CELL (test code = RBC) 4.24 x10 6/uL 3.54-5.02 N HEMOGLOBIN (test code = HGB) 11.8 g/dL 11.0-15.0 N HEMATOCRIT (test code = HCT) 36.7 % 33.0-45.0 N MEAN CELL VOLUME (test code = MCV) 86.6 fL 81.0-99.0 N MEAN CELL HGB (test code = MCH) 27.8 pg 27.0-33.0 N MEAN CELL HGB CONCETRATION (test code = MCHC) 32.2 g/dL 33.0-37. 0 L RED CELL DISTRIBUTION WIDTH CV (test code = RDW) 13.0 % 11.5- 14.5 N RED CELL DISTRIBUTION WIDTH SD (test code = RDW-SD) 40.9 fL 37 .0-54.0 N PLATELET COUNT (test code = PLT) 254 x10 3/uL 150-400 N MEAN PLATELET VOLUME (test code = MPV) 10.6 fL 7.0-9.0 H NEUTROPHIL % (test code = NT%) 69.1 % 56.0-77.0 N IMMATURE GRANULOCYTE % (test code = IG%) 0.5 % 0.0-2.0 N LYMPHOCYTE % (test code = LY%) 18.9 % 14.0-32.0 N MONOCYTE % (test code = MO%) 5.6 % 4.8-9.0 N EOSINOPHIL % (test code = EO%) 5.2 % 0.3-3.7 H BASOPHIL % (test code = BA%) 0.7 % 0.0-2.0 N NUCLEATED RBC % (test code = NRBC%) 0.0 % 0-0 N NEUTROPHIL # (test code = NT#) 5.04 x10 3/uL 2.0-7.6 N IMMATURE GRANULOCYTE # (test code = IG#) 0.04 x10 3/uL 0.00-0.03 H LYMPHOCYTE # (test code = LY#) 1.38 x10 3/uL 1.0-3.8 N MONOCYTE # (test code = MO#) 0.41 x10 3/uL 0.1-0.8 N EOSINOPHIL # (test code = EO#) 0.38 x10 3/uL 0.0-0.2 H BASOPHIL # (test code = BA#) 0.05 x10 3/uL 0.0-0.2 N NUCLEATED RBC # (test code = NRBC#) 0.00 x10 3/uL 0.0-0.1 N MANUAL DIFF REQUIRED (test code = MDIFF) NO BASIC METABOLIC [id number] 07:44:00* Test Item Value Reference Range Interpretation Comments SODIUM (test code = NA) 137 mEq/L 134-147 N POTASSIUM (test code = K) 4.2 mEq/L 3.4-5.0 N CHLORIDE (test code = CL) 108 mEq/L 100-108 N CARBON DIOXIDE (test code = CO2) 24 mEq/L 21-33 N ANION GAP (test code = GAP) 9 0-20 N GLUCOSE (test code = GLU) 201 mg/dL 70-110 H BLOOD UREA NITROGEN (test code = BUN) 18 mg/dL 7-18 N GLOMERULAR FILTRATION RATE (test code = GFR) 38.2 80-90 L Units of measure = ml/min/1.73 m2 CREATININE (test code = CREAT) 1.4 mg/dL 0.6-1.3 H CALCIUM (test code = CA) 8.7 mg/dL 8.0-10.5 N [id number] 16:30:00* Test Item Value Reference Range Interpretation Comments GLUBED (test code = GLUBED) 197 MG/DL 70-110 H Performed by certified draw bench operator helper at [facility] [id number] 11:46:00* Test Item Value Reference Range Interpretation Comments GLUBED (test code = GLUBED) 167 MG/DL 70-110 H Performed by certified draw bench operator helper at [facility] [id number] 07:52:00* Test Item Value Reference Range Interpretation Comments GLUBED (test code = GLUBED) 112 MG/DL 70-110 H Performed by certified draw bench operator helper at [facility] [id number] 00:49:00* Test Item Value Reference Range Interpretation Comments TROPONIN-I (test code = TROPI) < 0.015 ng/mL 0.000-0.045 N Negative: <= 0.045 Positive: >= 0.046 Correlation with serial results, other cardiac markers andclinical findings is necessary to determine the clinicalsignificance of this result. Results using different methodologies should not be comparedto one another as quantitative results may vary by method. COMMENTS: 3 troponins total (including troponin done in ED)- XR CHEST 1 V 2019-01-16 20:39:00 [place]: [facility] St: ADM Name: JAUN RAYGOZA [facility] : [birth year] Age/S: 63/F [address] [place] [address] Unit #: [id number] Loc: [place] [address] Phys: Mikhail Bynum MD Acct: [id number] Dis Date: Status: ADM IN PHONE #: [phone] Exam Date: 01/16/20192030 FAX #: [phone] Reason: Chest Pain EXAMS: CPT CODE: [id number] XR CHEST 1 V 96171 PROCEDURE: CHEST SINGLE VIEW INDICATION: Chest Pain COMPARISON: 11/06/2018 FINDINGS: The lungs are clear. No pleural abnormality. The cardiomedi astinal silhouette is normal for projection. The bony thorax is intact. IMPRESSION: Normal radiograph. SL: Estrellita Dc at 2038 Rep orted and signed by: Gabo Andrew M.D. CC: Technologist: RUPALI Pérez) Trnscrd Date/Time/By: 01/16/2019 (2038) : By : Aba Orig Print D/T: S: 01/16/2019 (2041) PAGE 1 Signed Report B- TYPE NATRIURETIC [id number] 20:33:00* Test Item Value Reference Range Interpretation Comments B-TYPE NATRIURETIC PEPTIDE (test code = BNP) 33.7 PG/ML 0-100 N [id number] 20:33:00* Test Item Value Reference Range Interpretation Comments TROPONIN-I (test code = TROPI) < 0.015 ng/mL 0.000-0.045 N Negative: <= 0.045 Positive: >= 0.046 Correlation with serial results, other cardiac markers andclinical findings is necessary to determine the clinicalsignificance of this result. Results using different methodologies should not be comparedto one another as quantitative results may vary by method. COMMENTS: 3 troponins total (including troponin done in ED)[id number] 20:21:00* Test Item Value Reference Range Interpretation Comments D-DIMER (test code = DDIMER) 395 ng/mlFEU <=500 N THROMBOSIS AND/OR PULMONARY EMBOLISM AND THE CLINICAL CUT- OFF VALUE FOR EXCLUSION (500 ng/mL FEU) OF THESE CONDITIONSIS VALIDATED BY THE SOCIAL SERVICES SPECIALIST OF THE METHOD. A NEGATIVE D-DIMER RESULT WHEN COMBINED WITH A CLINICALASSESSMENT OF LOW PRETEST PROBABILITY HAS BEEN SHOWN TO HAVEA HIGH NEGATIVE PREDICTIVE VALUE OF DVT OR PE. D-DIMER VALUES >500 ng/mL FEU ARE NOT DIAGNOSTIC FOR DVT, PEor DIC WITHOUT OTHER CONFIRMATORY TESTS AND APPROPRIATECLINICAL EUALUATIONS. CBC W/AUTO [id number] 20:07:00* Test Item Value Reference Range Interpretation Comments WHITE BLOOD CELL (test code = WBC) 8.13 x10 3/uL 4.5-11.0 N RED BLOOD CELL (test code = RBC) 4.76 x10 6/uL 3.54-5.02 N HEMOGLOBIN (test code = HGB) 12.9 g/dL 11.0-15.0 N HEMATOCRIT (test code = HCT) 41.3 % 33.0-45.0 N MEAN CELL VOLUME (test code = MCV) 86.8 fL 81.0-99.0 N MEAN CELL HGB (test code = MCH) 27.1 pg 27.0-33.0 N MEAN CELL HGB CONCETRATION (test code = MCHC) 31.2 g/dL 33.0-37. 0 L RED CELL DISTRIBUTION WIDTH CV (test code = RDW) 13.2 % 11.5- 14.5 N RED CELL DISTRIBUTION WIDTH SD (test code = RDW-SD) 42.0 fL 37 .0-54.0 N PLATELET COUNT (test code = PLT) 309 x10 3/uL 150-400 N MEAN PLATELET VOLUME (test code = MPV) 10.5 fL 7.0-9.0 H NEUTROPHIL % (test code = NT%) 61.8 % 56.0-77.0 N IMMATURE GRANULOCYTE % (test code = IG%) 0.4 % 0.0-2.0 N LYMPHOCYTE % (test code = LY%) 25.1 % 14.0-32.0 N MONOCYTE % (test code = MO%) 4.9 % 4.8-9.0 N EOSINOPHIL % (test code = EO%) 6.9 % 0.3-3.7 H BASOPHIL % (test code = BA%) 0.9 % 0.0-2.0 N NUCLEATED RBC % (test code = NRBC%) 0.0 % 0-0 N NEUTROPHIL # (test code = NT#) 5.03 x10 3/uL 2.0-7.6 N IMMATURE GRANULOCYTE # (test code = IG#) 0.03 x10 3/uL 0.00-0.03 N LYMPHOCYTE # (test code = LY#) 2.04 x10 3/uL 1.0-3.8 N MONOCYTE # (test code = MO#) 0.40 x10 3/uL 0.1-0.8 N EOSINOPHIL # (test code = EO#) 0.56 x10 3/uL 0.0-0.2 H BASOPHIL # (test code = BA#) 0.07 x10 3/uL 0.0-0.2 N NUCLEATED RBC # (test code = NRBC#) 0.00 x10 3/uL 0.0-0.1 N MANUAL DIFF REQUIRED (test code = MDIFF) NO TROPONIN-I [id number] 20:03:00* Test Item Value Reference Range Interpretation Comments TROPONIN-I RAPID (test code = TROPIRAP) 0.00 ng/mL 0.00-0.08 N Performed by certified draw bench operator helper at [facility] Negative: <= 0.08 Positive: >= 0.09An elevated troponin value alone is not sufficient todiagnose a myocardial infarction. Rather, the patient sclinical presentation (history, physical exam) and ECGshould be used in conjunction with troponin in thediagnostic evaluation of suspected myocardial infarction. Aserial sampling protocol is recommended to facilitate the identification of temporal changes in troponin levels characteristic of GA. CHEMISTRY 8 [id number] 19:54:00* Test Item Value Reference Range Interpretation Comments ISTAT-SODIUM (test code = NAP) MMOL/L 134-147 ISTAT-POTASSIUM (test code = KP) MMOL/L 3.4-5.0 ISTAT-CHLORIDE (test code = CLP) MMOL/L 100-108 ISTAT CARBON DIOXIDE (test code = ISTAT-CO2) mmol/L 21-33 N ISTAT CALCIUM IONIZED (test code = ISTAT-DAVID) MG/DL 1.12-1.3 2 ISTAT-GLUCOSE (test code = GLUP) MG/DL 70-110 H ISTAT-BUN (test code = BUNP) MG/DL 7-18 H BEDSIDE CREATININE (test code = CREATBED) MG/DL 0.6-1.3 H GLOMERULAR FILTRATION RATE POC (test code = GFRBED) 32 ML/MIN CHEMISTRY 8 [id number] 19:54:00* Test Item Value Reference Range Interpretation Comments ISTAT-SODIUM (test code = NAP) 142 MMOL/L 134-147 N ISTAT-POTASSIUM (test code = KP) 4.4 MMOL/L 3.4-5.0 N ISTAT-CHLORIDE (test code = CLP) 107 MMOL/L 100-108 N Performed by certified draw bench operator helper at [facility] ISTAT CARBON DIOXIDE (test code = ISTAT-CO2) 24.0 mmol/L 21-33 N ISTAT CALCIUM IONIZED (test code = ISTAT-DAVID) 1.20 MG/DL 1.12-1.3 2 N ISTAT-GLUCOSE (test code = GLUP) 178 MG/DL 70-110 H ISTAT-BUN (test code = BUNP) 25 MG/DL 7-18 H BEDSIDE CREATININE (test code = CREATBED) 1.7 MG/DL 0.6-1.3 H GLOMERULAR FILTRATION RATE POC (test code = GFRBED) 32 ML/MIN [id number] 19:29:00* Test Item Value Reference Range Interpretation Comments GLUBED (test code = GLUBED) 219 MG/DL 70-110 H Performed by certified draw bench operator helper at [facility] CBC W/AUTO [id number] 19:29:00* Test Item Value Reference Range Interpretation Comments WHITE BLOOD CELL (test code = WBC) 7.34 x10 3/uL 4.5-11.0 N RED BLOOD CELL (test code = RBC) 5.24 x10 6/uL 3.54-5.02 H HEMOGLOBIN (test code = HGB) 14.2 g/dL 11.0-15.0 N HEMATOCRIT (test code = HCT) 44.0 % 33.0-45.0 N MEAN CELL VOLUME (test code = MCV) 84.0 fL 81.0-99.0 N MEAN CELL HGB (test code = MCH) 27.1 pg 27.0-33.0 N MEAN CELL HGB CONCETRATION (test code = MCHC) 32.3 g/dL 33.0-37. 0 L RED CELL DISTRIBUTION WIDTH CV (test code = RDW) 12.3 % 11.5- 14.5 N RED CELL DISTRIBUTION WIDTH SD (test code = RDW-SD) 37.5 fL 37 .0-54.0 N PLATELET COUNT (test code = PLT) 275 x10 3/uL 150-400 MEAN PLATELET VOLUME (test code = MPV) 10.4 fL 7.0-9.0 H NEUTROPHIL % (test code = NT%) 56.0 % 56.0-77.0 N IMMATURE GRANULOCYTE % (test code = IG%) 0.5 % 0.0-2.0 N LYMPHOCYTE % (test code = LY%) 29.6 % 14.0-32.0 N MONOCYTE % (test code = MO%) 4.9 % 4.8-9.0 N EOSINOPHIL % (test code = EO%) 8.0 % 0.3-3.7 H BASOPHIL % (test code = BA%) 1.0 % 0.0-2.0 N NUCLEATED RBC % (test code = NRBC%) 0.0 % 0-0 N NEUTROPHIL # (test code = NT#) 4.11 x10 3/uL 2.0-7.6 N IMMATURE GRANULOCYTE # (test code = IG#) 0.04 x10 3/uL 0.00-0.03 H LYMPHOCYTE # (test code = LY#) 2.17 x10 3/uL 1.0-3.8 N MONOCYTE # (test code = MO#) 0.36 x10 3/uL 0.1-0.8 N EOSINOPHIL # (test code = EO#) 0.59 x10 3/uL 0.0-0.2 H BASOPHIL # (test code = BA#) 0.07 x10 3/uL 0.0-0.2 N NUCLEATED RBC # (test code = NRBC#) 0.00 x10 3/uL 0.0-0.1 N MANUAL DIFF REQUIRED (test code = MDIFF) NO BASIC METABOLIC [id number] 19:25:00* Test Item Value Reference Range Interpretation Comments SODIUM (test code = NA) 138 mEq/L 134-147 N POTASSIUM (test code = K) 4.3 mEq/L 3.4-5.0 N CHLORIDE (test code = CL) 105 mEq/L 100-108 N CARBON DIOXIDE (test code = CO2) 25 mEq/L 21-33 N ANION GAP (test code = GAP) 12 0-20 N GLUCOSE (test code = GLU) 265 mg/dL 70-110 H BLOOD UREA NITROGEN (test code = BUN) 22 mg/dL 7-18 H GLOMERULAR FILTRATION RATE (test code = GFR) 32.9 80-90 L Units of measure = ml/min/1.73 m2 CREATININE (test code = CREAT) 1.6 mg/dL 0.6-1.3 H CALCIUM (test code = CA) 9.2 mg/dL 8.0-10.5 N [id number] 17:11:00* Test Item Value Reference Range Interpretation Comments GLUBED (test code = GLUBED) 296 MG/DL 70-110 H Performed by certified draw bench operator helper at [facility] [id number] 11:51:00* Test Item Value Reference Range Interpretation Comments GLUBED (test code = GLUBED) 288 MG/DL 70-110 H Performed by certified draw bench operator helper at [facility] [id number] 07:53:00* Test Item Value Reference Range Interpretation Comments GLUBED (test code = GLUBED) 239 MG/DL 70-110 H Performed by certified draw bench operator helper at [facility] [id number] 00:21:00* Test Item Value Reference Range Interpretation Comments GLUBED (test code = GLUBED) 326 MG/DL 70-110 H Performed by certified draw bench operator helper at [facility] [id number] 15:34:00* Test Item Value Reference Range Interpretation Comments GLUBED (test code = GLUBED) 262 MG/DL 70-110 H Performed by certified draw bench operator helper at [facility] [id number] 11:39:00* Test Item Value Reference Range Interpretation Comments GLUBED (test code = GLUBED) 233 MG/DL 70-110 H Performed by certified draw bench operator helper at [facility] [id number] 09:48:00* Test Item Value Reference Range Interpretation Comments HGBA1C% (test code = HGBA1C%) 12.5 %A1C 4.8-6.0 H [id number] 08:36:00* Test Item Value Reference Range Interpretation Comments GLUBED (test code = GLUBED) 227 MG/DL 70-110 H Performed by certified draw bench operator helper at [facility] CBC W/AUTO [id number] 08:29:00* Test Item Value Reference Range Interpretation Comments WHITE BLOOD CELL (test code = WBC) 6.64 x10 3/uL 4.5-11.0 N RED BLOOD CELL (test code = RBC) 4.81 x10 6/uL 3.54-5.02 N HEMOGLOBIN (test code = HGB) 13.3 g/dL 11.0-15.0 N HEMATOCRIT (test code = HCT) 41.4 % 33.0-45.0 N MEAN CELL VOLUME (test code = MCV) 86.1 fL 81.0-99.0 MEAN CELL HGB (test code = MCH) 27.7 pg 27.0-33.0 N MEAN CELL HGB CONCETRATION (test code = MCHC) 32.1 g/dL 33.0-37. 0 L RED CELL DISTRIBUTION WIDTH CV (test code = RDW) 12.4 % 11.5- 14.5 N RED CELL DISTRIBUTION WIDTH SD (test code = RDW-SD) 39.1 fL 37 .0-54.0 N PLATELET COUNT (test code = PLT) 183 x10 3/uL 150-400 N MEAN PLATELET VOLUME (test code = MPV) 12.0 fL 7.0-9.0 H NEUTROPHIL % (test code = NT%) 49.1 % 56.0-77.0 L IMMATURE GRANULOCYTE % (test code = IG%) 0.5 % 0.0-2.0 N LYMPHOCYTE % (test code = LY%) 33.7 % 14.0-32.0 H MONOCYTE % (test code = MO%) 6.3 % 4.8-9.0 N EOSINOPHIL % (test code = EO%) 9.3 % 0.3-3.7 H BASOPHIL % (test code = BA%) 1.1 % 0.0-2.0 N NUCLEATED RBC % (test code = NRBC%) 0.0 % 0-0 N NEUTROPHIL # (test code = NT#) 3.26 x10 3/uL 2.0-7.6 N IMMATURE GRANULOCYTE # (test code = IG#) 0.03 x10 3/uL 0.00-0.03 N LYMPHOCYTE # (test code = LY#) 2.24 x10 3/uL 1.0-3.8 N MONOCYTE # (test code = MO#) 0.42 x10 3/uL 0.1-0.8 N EOSINOPHIL # (test code = EO#) 0.62 x10 3/uL 0.0-0.2 H BASOPHIL # (test code = BA#) 0.07 x10 3/uL 0.0-0.2 N NUCLEATED RBC # (test code = NRBC#) 0.00 x10 3/uL 0.0-0.1 N MANUAL DIFF REQUIRED (test code = MDIFF) NO BASIC METABOLIC [id number] 07:55:00* Test Item Value Reference Range Interpretation Comments SODIUM (test code = NA) 137 mEq/L 134-147 N POTASSIUM (test code = K) 4.3 mEq/L 3.4-5.0 N CHLORIDE (test code = CL) 108 mEq/L 100-108 N CARBON DIOXIDE (test code = CO2) 21 mEq/L 21-33 N ANION GAP (test code = GAP) 12 0-20 N GLUCOSE (test code = GLU) 247 mg/dL 70-110 H BLOOD UREA NITROGEN (test code = BUN) 25 mg/dL 7-18 H GLOMERULAR FILTRATION RATE (test code = GFR) 38.4 80-90 L Units of measure = ml/min/1.73 m2 CREATININE (test code = CREAT) 1.4 mg/dL 0.6-1.3 H CALCIUM (test code = CA) 8.8 mg/dL 8.0-10.5 N [id number] 22:10:00* Test Item Value Reference Range Interpretation Comments GLUBED (test code = GLUBED) 229 MG/DL 70-110 H Performed by certified draw bench operator helper at [facility] LACTIC ACID 2ND [id number] 19:55:00* Test Item Value Reference Range Interpretation Comments LACTIC ACID 2ND REPEAT (test code = LACT2) 1.9 mmol/L 0.4-1.9 N [id number] 18:11:00* Test Item Value Reference Range Interpretation Comments GLUBED (test code = GLUBED) 161 MG/DL 70-110 H Performed by certified draw bench operator helper at [facility] LACTIC ACID [id number] 16:48:00* Test Item Value Reference Range Interpretation Comments LACTIC ACID REPEAT (test code = LACTR) 2.3 mmol/l 0.4-1.9 H [id number] 16:06:00* Test Item Value Reference Range Interpretation Comments GLUBED (test code = GLUBED) 211 MG/DL 70-110 H Performed by certified draw bench operator helper at [facility] VENOUS BLOOD [id number] 15:04:00* Test Item Value Reference Range Interpretation Comments VENOUS BLOOD GAS PH (test code = PHV) 7.30 7.33-7.45 L VENOUS BLOOD GAS PCO2 (test code = PCO2V) 51 mmHg 43-47 H VENOUS BLOOD GAS PO2 (test code = PO2V) 19 mmHg 10-50 N VBG HCO3 (test code = HCO3V) 24.9 mmol/L 22-27 N VBG BASE EXCESS (test code = JOSTIN) -2.0 mmol/L -4.0-4.0 N VENOUS BLOOD GAS O2 SAT. (test code = O2SATV) 24 % 60-80 L VENOUS BLOOD GAS DELIVERY (test code = DELV) Room Air Performed by certified draw bench operator helper at [facility] VENOUS BLOOD GAS TEMP (test code = TEMPV) 98.6 F VENOUS BLOOD GAS SITE (test code = SITEV) Other VENOUS TCO2 (test code = TCO2V) 26 PROTHROMBIN [id number] 15:03:00* Test Item Value Reference Range Interpretation Comments PROTHROMBIN TIME PATIENT (test code = PTP) 10.4 SECONDS 9.3-12.9 N INTERNATIONAL NORMAL RATIO (test code = INR) 0.9 0.8-1.2 N TARGET INR BY INDICATION Indication INR1. Prophylaxis of venous thrombosis 2.0 - 3.0 (orthopedic surgery), Prophylaxis of venous thrombosis (other than high-risk surgery), Treatment of Deep Vein Thrombosis/Pulmonary Embolism, Prevention of systemic embolism - Tissue heart valves, Acute Myocardial Infarction (to prevent systemic embolism), Valvular heart disease, Atrial Fibrillation, Bileaflet mechanical valve in aortic position.2. Mechanical prosthetic valves (high risk), 2.5 - 3.5 Presence of Lupus Anticoagulant or Antiphospholipid Antibodies, Prevention of systemic embolism - Acute Myocardial Infarction (to prevent recurrent infarct). URINALYSIS [id number] 15:02:00* Test Item Value Reference Range Interpretation Comments UA COLOR (test code = COLU) YELLOW YEL/STRAW UA APPEARANCE (test code = APPU) CLOUDY CLEAR A UA GLUCOSE DIPSTICK (test code = DGLUU) 3+ NEGATIVE A UA BILIRUBIN DIPSTICK (test code = BILU) NEGATIVE NEGATIVE UA KETONE DIPSTICK (test code = KETU) NEGATIVE NEGATIVE UA SPECIFIC GRAVITY (test code = SGU) 1.011 1.005-1.030 N UA BLOOD DIPSTICK (test code = DANIE) NEGATIVE NEGATIVE UA PH DIPSTICK (test code = VIDYA) 5.0 5.0-7.0 N UA PROTEIN DIPSTICK (test code = PROU) 2+ NEGATIVE A UA UROBILINIOGEN DIPSTICK (test code = URO) 0.2 mg/dL 0.2-1.0 UA NITRITE DIPSTICK (test code = HYACINTH) NEGATIVE NEGATIVE UA LEUKOCYTE ESTERASE DIPSTICK (test code = LEUU) 3+ NEGA TIVE A UA WBC (test code = WBCU) 21-50 WBC/HPF 0-3 A UA RBC (test code = RBCU) 11-20 RBC/HPF 0-3 UA BACTERIA (test code = BACU) NONE SEEN /HPF NONE SEEN UA SQUAMOUS CELLS (test code = SQU) 11-25 /HPF NONE SEEN A UA HYALINE CAST (test code = HYALU) 6-10 /LPF NONE SEEN UA MUCUS (test code = MUCU) 2+ /LPF NONE SEEN A HEPATIC FUNCTION [id number] 15:00:00* Test Item Value Reference Range Interpretation Comments TOTAL PROTEIN (test code = PROT) 7.9 g/dL 6.4-8.2 N ALBUMIN (test code = ALB) 3.80 g/dL 3.4-5.0 N BILIRUBIN TOTAL (test code = BILT) 0.50 mg/dL 0.0-1.0 N BILIRUBIN DIRECT (test code = BILD) < 0.10 MG/DL 0.0-0.30 N BILIRUBIN INDIRECT (test code = BILIND) 0.40 MG/DL SGOT/AST (test code = AST) 14 IUnit/L 15-37 L SGPT/ALT (test code = ALT) 28 IUnit/L 15-65 N ALKALINE PHOSPHATASE TOTAL (test code = ALKP) 136 IUnit/L 20-125 H [id number] 15:00:00* Test Item Value Reference Range Interpretation Comments LIPASE (test code = LIP) 333 IUnit/L 73-393 N ACETONE [id number] 15:00:00* Test Item Value Reference Range Interpretation Comments ACETONE QUANT (test code = ACETN) NEGATIVE - <20mg/dL mg/dL NEG - < 20 CBC W/AUTO [id number] 14:51:00* Test Item Value Reference Range Interpretation Comments WHITE BLOOD CELL (test code = WBC) 7.22 x10 3/uL 4.5-11.0 N RED BLOOD CELL (test code = RBC) 5.63 x10 6/uL 3.54-5.02 H HEMOGLOBIN (test code = HGB) 15.5 g/dL 11.0-15.0 H HEMATOCRIT (test code = HCT) 46.5 % 33.0-45.0 H MEAN CELL VOLUME (test code = MCV) 82.6 fL 81.0-99.0 N MEAN CELL HGB (test code = MCH) 27.5 pg 27.0-33.0 N MEAN CELL HGB CONCETRATION (test code = MCHC) 33.3 g/dL 33.0-37. 0 N RED CELL DISTRIBUTION WIDTH CV (test code = RDW) 12.4 % 11.5- 14.5 N RED CELL DISTRIBUTION WIDTH SD (test code = RDW-SD) 37.4 fL 37 .0-54.0 N PLATELET COUNT (test code = PLT) 257 x10 3/uL 150-400 N MEAN PLATELET VOLUME (test code = MPV) 11.4 fL 7.0-9.0 H NEUTROPHIL % (test code = NT%) 59.5 % 56.0-77.0 N IMMATURE GRANULOCYTE % (test code = IG%) 0.6 % 0.0-2.0 N LYMPHOCYTE % (test code = LY%) 26.2 % 14.0-32.0 N MONOCYTE % (test code = MO%) 4.7 % 4.8-9.0 L EOSINOPHIL % (test code = EO%) 7.8 % 0.3-3.7 H BASOPHIL % (test code = BA%) 1.2 % 0.0-2.0 N NUCLEATED RBC % (test code = NRBC%) 0.0 % 0-0 N NEUTROPHIL # (test code = NT#) 4.30 x10 3/uL 2.0-7.6 N IMMATURE GRANULOCYTE # (test code = IG#) 0.04 x10 3/uL 0.00-0.03 H LYMPHOCYTE # (test code = LY#) 1.89 x10 3/uL 1.0-3.8 N MONOCYTE # (test code = MO#) 0.34 x10 3/uL 0.1-0.8 N EOSINOPHIL # (test code = EO#) 0.56 x10 3/uL 0.0-0.2 H BASOPHIL # (test code = BA#) 0.09 x10 3/uL 0.0-0.2 N NUCLEATED RBC # (test code = NRBC#) 0.00 x10 3/uL 0.0-0.1 N MANUAL DIFF REQUIRED (test code = MDIFF) NO HEPATIC FUNCTION [id number] 14:50:00* Test Item Value Reference Range Interpretation Comments TOTAL PROTEIN (test code = PROT) g/dL 6.4-8.2 ALBUMIN (test code = ALB) g/dL 3.4-5.0 BILIRUBIN TOTAL (test code = BILT) mg/dL 0.0-1.0 BILIRUBIN DIRECT (test code = BILD) MG/DL 0.0-0.30 SGOT/AST (test code = AST) IUnit/L 15-37 SGPT/ALT (test code = ALT) IUnit/L 15-65 ALKALINE PHOSPHATASE TOTAL (test code = ALKP) IUnit/L 20-125 [id number] 14:50:00* Test Item Value Reference Range Interpretation Comments LIPASE (test code = LIP) IUnit/L 73-393 ACETONE [id number] 14:50:00* Test Item Value Reference Range Interpretation Comments ACETONE QUANT (test code = ACETN) NEGATIVE - <20mg/dL mg/dL NEG - < 20 - XR CHEST 1 [id number] 14:33:00 FAX: Trinh Hodgson DO [place]: St: REG Name: JAUN RAYGOZA [facility] : [birth year] 60 Age/S: 62/F [address] [place] [address] Unit #: [id number] Loc: [address] [address] Phys: Trinh Freedman DO Acct: [id number] Dis Date: Status: REG ER PHONE #: [phone] Exam Date: 11/06/2018 1431 FAX #: [phone] Reason: TACHYCARDIA EXAMS: CPT CODE: [id number] XR CHEST 1 V 66018 Patient: JAUN HART. : ; Age: 62 years; Gender: Female. MR: [id number]. [place]ong [place] physician: Trinh Freedman DO. PORTABLE CHEST AP: HISTORY: Tachycardia, weakness, diabetes, left flank pain. RAHEEM RISON: None. FINDINGS: Portable frontal view of the chest was ob tained. The lungs are clear bilaterally. The cardiomediastinal silhouette and pulmonary vasculature are unremarkable. The partially visualized upper abdomen is unremarkable. IMPRESSION: No acute disease i n the chest. SL: [id number] Electronic ally Signed by Janee Arroyo on 11/06/2018 at 1433 Reporte d and signed by: Raheem Arroyo M.D. CC: Trinh Freedman DO Technologist: RT Raymond(R); Harvey Wells(R) Trnscrd Date/Time/By: 11/06/2018 (8338) : By: [email or web address] Orig Print D/T: S: 11/06/2018 (4022) PAGE 1 Signed Report TROPONIN-I RAPID 2018-11-06 14:15:00* Test Item Value Reference Range Interpretation Comments TROPONIN-I RAPID (test code = TROPIRAP) 0.00 ng/mL 0.00-0.08 N Performed by certified draw bench operator helper at [facility] Negative: <= 0.08 Positive: >= 0.09An elevated troponin value alone is not sufficient todiagnose a myocardial infarction. Rather, the patient sclinical presentation (history, physical exam) and ECGshould be used in conjunction with troponin in thediagnostic evaluation of suspected myocardial infarction. Aserial sampling protocol is recommended to facilitate the identification of temporal changes in troponin levels characteristic of GA. LACTIC ACID [id number] 14:09:00* Test Item Value Reference Range Interpretation Comments LACTIC ACID POC (test code = LACTP) 3.7 MMOL/L 0.90-1.70 H Performed by certified draw bench operator helper at [facility] CHEMISTRY 8 [id number] 14:09:00* Test Item Value Reference Range Interpretation Comments ISTAT-SODIUM (test code = NAP) MMOL/L 134-147 ISTAT-POTASSIUM (test code = KP) MMOL/L 3.4-5.0 ISTAT-CHLORIDE (test code = CLP) MMOL/L 100-108 ISTAT CARBON DIOXIDE (test code = ISTAT-CO2) mmol/L 21-33 N ISTAT CALCIUM IONIZED (test code = ISTAT-DAVID) MG/DL 1.12-1.3 2 ISTAT-GLUCOSE (test code = GLUP) MG/DL 70-110 H ISTAT-BUN (test code = BUNP) MG/DL 7-18 H BEDSIDE CREATININE (test code = CREATBED) MG/DL 0.6-1.3 H GLOMERULAR FILTRATION RATE POC (test code = GFRBED) 31 ML/MIN CHEMISTRY 8 [id number] 14:09:00* Test Item Value Reference Range Interpretation Comments ISTAT-SODIUM (test code = NAP) 136 MMOL/L 134-147 N ISTAT-POTASSIUM (test code = KP) 4.2 MMOL/L 3.4-5.0 N ISTAT-CHLORIDE (test code = CLP) 102 MMOL/L 100-108 N Performed by certified draw bench operator helper at [facility] ISTAT CARBON DIOXIDE (test code = ISTAT-CO2) 21.0 mmol/L 21-33 N ISTAT CALCIUM IONIZED (test code = ISTAT-DAVID) 1.22 MG/DL 1.12-1.3 2 N ISTAT-GLUCOSE (test code = GLUP) 354 MG/DL 70-110 H ISTAT-BUN (test code = BUNP) 26 MG/DL 7-18 H BEDSIDE CREATININE (test code = CREATBED) 1.8 MG/DL 0.6-1.3 H GLOMERULAR FILTRATION RATE POC (test code = GFRBED) 31 ML/MIN XR Chest 1 View [id number] 20:00:48Patient: JAUN HART Date/Time05/25/2018 19:52 CSTReason for ExamChest painReportExam: AP chestLocation: [id number]: Chest painComparison: NoneFindings:The lungs are clear. The pulmonary vasculature is normal. The heart size is normal. The mediastinal silhouette is unremarkable. The bony thorax is intact.Impression:No acute disease. Final Dictated by: MD Everett Francesco MDictated DT/TM: 05/25/2018 8:00 pmSigned by: MD Everett Francesco MSigned (Electronic Signature): 05/25/2018 8:00 pm Culture, [id number] 08:05:00Specimen: Urine, CC-MidstreamCollected: 01/17/2017 02:30 Status: Final Last Updated: 01/19/2017 07:48 (1) ER Bed 17 Isolate (Final) (Final) 01/18/17 20,000 CFU/mL Escherichia coli Amikacin <=16 Susceptible Ampicillin <=8 Susceptible Ampicillin/Sulb <=8/4 Susceptible Cefazolin <=8 Susceptible Cefepime <=4 Susceptible Cefotaxime <=2 Susceptible Ceftazidime <=1 Susceptible Ceftriaxone <=1 Susceptible Cefuroxime 8 Susceptible Ciprofloxacin <=1 Susceptible Gentamicin <=4 Susceptible Imipenem <=1 Susceptible Levofloxacin <=2 Susceptible Meropenem <=1 Susceptible Nitrofurantoin <=32 Susceptible Piperacillin/Tazo <=16 Susceptible Tobramycin <=4 Susceptible Trimethoprim/Sulfa <=2/38 Susceptible Prothrombin Time 2017-01-17 03:50:00* Test Item Value Reference Range Interpretation Comments PT (test code = PT) 11.10 seconds 9.78-13.35 N INR (test code = INR) 0.98 Ratio 0.6-1.2 N Partial Thromboplastin [id number] 03:50:00* Test Item Value Reference Range Interpretation Comments aPTT (test code = PTT) 32.20 seconds 24.39-37.25 N Urinalysis [id number] 03:48:00* Test Item Value Reference Range Interpretation Comments Color (test code = COLOR) Yellow Yellow,Straw,Pl yellow N Clarity (test code = CLAR) Sl Cloudy Clear A Specific [place] (test code = SPGR) 1.013 1.001-1.035 N pH (test code = PH) 5.0 5.0-9.0 N Ketone (test code = KET) Negative mg/dL Negative N Glucose (test code = GLUCUR) 300 mg/dL Negative A Protein (test code = PROT) 75 mg/dL Negative A Bilirubin (test code = BILI) Negative mg/dL Negative N Occult Blood (test code = UDOB) Large Negative A Urobilinogen (test code = UROB) 0.2 mg/dL 0.2-1.0 N Nitrite (test code = NIT) Negative Negative N Leuk Esterase (test code = LEUK) Large Negative A Micros Exam (test code = MEXAM) Indicated Epithelial Cells (test code = EPI) 3-5 /LPF 0-30 A WBC, Urine (test code = UWBC) 41-50 /HPF 0-5 A RBC, Urine (test code = URBC) None Seen /HPF 0-5 A Bacteria (test code = BACT) Few /HPF CBC with [id number] 03:33:00* Test Item Value Reference Range Interpretation Comments WBC (test code = WBC) 11.2 K/cumm 4.4-10.5 H RBC (test code = RBC) 5.02 M/cumm 3.75-5.20 N Hemoglobin (test code = HGB) 13.7 gm/dL 12.2-14.8 N Hematocrit (test code = HCT) 43.4 % 36.5-44.4 N MCV (test code = MCV) 86.4 fL 80-100 N MCH (test code = MCH) 27.3 pg 27.0-32.5 N MCHC (test code = MCHC) 31.6 g/dL 32.0-37.5 L RDW (test code = RDW) 13.9 % 11.5-14.5 N Platelet Count (test code = PLTCT) 293 K/cumm 140-440 N MPV (test code = MPV) 8.2 fL Diff Method (test code = DIFFM) Auto Neutrophil (test code = NEUT) 77.5 % 36-70 H Lymphocyte (test code = LYMPH) 15.7 % 12-44 N Monocyte (test code = MONO) 3.3 % 0-11 N Eosinophil (test code = EOS) 2.9 % 0-7 N Basophil (test code = BASO) 0.7 % 0-2 N Neutro Abs (test code = ANEUT) 8.7 K/cumm 1.6-7.4 H Lymph Abs (test code = ALYMPH) 1.8 K/cumm 0.5-4.6 N [place] Abs (test code = AMONO) 0.4 K/cumm 0.0-1.2 N Eos Abs (test code = AEOS) 0.32 K/cumm 0.00-0.74 N Baso Abs (test code = ABASO) 0.1 K/cumm 0.00-0.21 N Comprehensive Metabolic [id number] 03:24:00* Test Item Value Reference Range Interpretation Comments Sodium (test code = NA) 136 mmol/L 135-145 N Potassium (test code = K) 4.5 mmol/L 3.5-5.1 N Chloride (test code = CL) 97 mmol/L 98-105 L Carbon Dioxide (test code = CO2) 24 mmol/L 22-29 N Glucose (test code = GLU) 311 mg/dL 70-115 H Blood Urea Nitrogen (test code = BUN) 23 mg/dL 6-20 H Creatinine (test code = CREAT) 1.3 mg/dL 0.5-0.9 H Calcium (test code = CA) 10.0 mg/dL 8.3-10.5 N Prot Total (test code = TP) 7.7 g/dL 6.4-8.3 N Albumin (test code = ALB) 4.4 g/dL 3.5-5.2 N A/G Ratio (test code = AGRATIO) 1.3 Ratio Globulin (test code = GLOB) 3.3 2.9-3.1 H Bili Total (test code = TBIL) 0.7 mg/dL 0.1-0.9 N Alk Phos (test code = APHOS) 148 U/L 35-104 H AST (test code = AST) 22 U/L 1-32 N ALT (test code = ALT) 36 U/L 1-33 H BUN/Creatinine Ratio (test code = BCRATIO) 17.7 Anion Gap (test code = AGAP) 15 mmol/L 7-16 N Estimated GFR (test code = GFR) 45 mL/min/1.73m2 eGFR (estimated Glomerular Filtration Rate) is an estimated value,calculated from the patient's serum creatinine using the MDRD equation.It is NOT the patient's actual GFR. The eGFR provides a more clinicallyuseful measure of kidney disease than serum creatinine alone.This calculation takes sex and race into account, if the informationis provided. If the race is not provided, and the patient isAfrican-Ivorian, multiply by 1.212. If sex is not provided, and thepatient is female, multiply by 0.742. Results for patients <18 years ofage have not been validated by the MDRD study and should be interpretedwith caution.eGFR Result Interpretation:eGFR > or = 60 is in the Normal RangeeGFR < 60 may mean kidney diseaseeGFR < 15 may mean kidney failureRanges recommended by the National Kidney Found ation,http://nkdep.nih.gov [id number] 03:24:00* Test Item Value Reference Range Interpretation Comments Lipase (test code = LIP) 144 U/L 13-60 H 12010& PELVIS W/O [id number] 03:06:01AFTER HOURS SERVICE ON: 01/17/2017 3:06 AMCT Scan of the Abdomen and Pelvis Without ContrastLocation Code [id number]: Abd painTechnique: Axial and reconstructed coronal scans were performed on [facility] scanner pre oral and IV contrast. Study is limited secondary tolack of oral and IV contrast. One or more of the following dose reduction techniques were used:Automated exposure control, adjustment of the mA and/or kV according topatient size, and/or utilization of iterative rec onstruction technique.Findings: Liver is mildly enlarged measuring 18.2 cm. Ther e is mild fattyinfiltration. There is no splenomegaly. Gallbladder is absent. Th ere areno peripancreatic inflammatory changes. A 1 cm left adrenal adenoma isnot ed. Right adrenal gland is within normal limits. There is nonephrolithiasis or h ydronephrosis in the left kidney. There is mildthoracic hydronephrosis and hydro ureter to the level of the UVJ. Norenal, ureteral or bladder calculi are seen. T his may indicate arecently passed calculus. There is a questionable 2.5 cm isode nse massin the upper pole of the right kidney. No retroperitoneal adenopathy.Lef t renal vein is retroaortic. No evidence of aortic aneurysm. Bladderis within no rmal limits. Uterus is present appearing slightly lobulated.There is no adnexal mass.Mild diverticular changes are seen in the distal colon without evidenceof d iverticulitis. Small bowel and appendix are unremarkable.Impression:1. Mild rig ht hydronephrosis and hydroureter without evidence of aurinary calculus, indicat ing a recently passed calculus.2. Suspected 2.5 cm isodense right upper pole re nal mass. Furtherevaluation with contrast enhanced CT is recommended.3. Mildly enlarged fatty liver.4. Cholecystectomy.5. Small left adrenal adenoma.6. Dive rticulosis coli.
[2020-03-12 15:45] LABS: BASOPHILS # (AUTO) 0.1 (0.0-0.1); BASOPHILS % 0.8 % (0.0-1.0); EOSINOPHILS # (AUTO) 0.5 (0.0-0.4); EOSINOPHILS % 5.7 % (0.0-6.0); HEMATOCRIT 39.1 % (34.2-44.1); HEMOGLOBIN 12.3 g/dL (12.0-16.0); LYMPHOCYTES # (AUTO) 1.6 (1.0-3.2); LYMPHOCYTES % 18.2 % (18.0-39.1); MEAN CORPUSCULAR HEMOGLOBIN 26.7 pg (28-32); MEAN CORPUSCULAR HGB CONC 31.5 g/dL (31-35); MEAN CORPUSCULAR VOLUME 84.8 fL (81-99); MONOCYTES # (AUTO) 0.4 (0.2-0.8); MONOCYTES % 4.6 % (4.4-11.3); NEUTROPHILS # (AUTO) 6.2 (2.1-6.9); NEUTROPHILS % 68.8 % (38.7-80.0); PLATELET COUNT 393 x10e3/uL (140-360); RED BLOOD COUNT 4.61 x10e6/uL (3.6-5.1); RED CELL DISTRIBUTION WIDTH 13.1 % (11.7-14.4)
[2020-03-12 15:56] LABS: ALBUMIN/GLOBULIN RATIO 0.7 (0.8-2.0); CALCIUM 9.4 mg/dL (8.4-10.2); CREATININE, SERUM 1.67 mg/dL (0.57-1.11)
[2020-03-12 17:15] VITALS: BP 171/68
--- NOTE | 2020-03-12 17:22 | Emergency Department Note ---
History of Present Illnes History of Present Illness Chief Complaint: General Medicine Complaints History of Present Illness This is a 64 year old female arrives to the ED with complaints of right flank pain, notes improvement of symptoms now and wished to be discharged home. . PATIENT IN FROM HOME; STATES SHE WAS SENT FOR EVAL BY DR MOSS BECAUSE SHE WAS HAVING ACHES AND FLANK PAIN RATED 8/10 THIS MORNING. S/P RIGHT PARTIAL NEPHRECTOMY 03/01/20; PATIENT STATES SHE IS FEELING BETTER NOW, AFTER SHE TOOK HER PAIN MEDICATIONS. INCISION CLEAN AND DRY, NO REDNESS SWELLING OR DRAINAGE. PATIENT AMBULATORY WITHOUT ASSISTANCE, APPEARS IN NO DISTRESS, RATES PAIN 4/10 Historian: Patient Arrival Mode: Car Onset (how long ago): hour(s) Radiation: Reports non-radiation Severity: mild Duration (how long): hour(s) Timing of current episode: intermittent Progression: resolved Past Medical/Family History Physician Review I have reviewed the patient's past medical and family history. Any updates have been documented here. Past Medical History Recent Fever: No Clinical Suspicion of Infectio: No New/Unexplained Change in Ment: No Other Medical History: KIDNEY MASS Other Surgery: PARTIAL RIGHT NEPHRECTOMY Social History Smoking Cessation: Never Smoker Alcohol Use: None Any Illegal Drug Use: No Physically hurt or threatened: No Other Any Pre-Existing Lines (PICC,: No Review of Systems Review of Systems Constitutional: Reports no symptoms EENTM: Reports no symptoms Cardiovascular: Reports no symptoms Respiratory: Reports no symptoms Gastrointestinal: Reports no symptoms Genitourinary: Reports no symptoms Musculoskeletal: Reports as per HPI, Reports back pain Integumentary: Reports no symptoms Neurological: Reports no symptoms Psychological: Reports no symptoms Endocrine: Reports no symptoms Hematological/Lymphatic: Reports no symptoms Physical Exam Related Data Allergies: Coded Allergies: codeine (Verified Allergy, Unknown, 03/12/20) Triage Vital Signs Vital Signs Date Time Temp Pulse Resp B/P (MAP) Pulse Ox O2 Delivery O2 Flow Rate FiO2 03/12/20 15:12 98.6 61 20 161/75 96 Room Air Vital signs reviewed: Yes Physical Exam CONSTITUTIONAL Constitutional: Present well-developed, Present well-nourished HENT HENT: Present normocephalic, Present atraumatic, Present oropharynx clear/moist, Present nose normal HENT L/R: Present left ext ear normal, Present right ext ear normal EYES Eyes: Reports PERRL, Reports conjunctivae normal NECK Neck: Present ROM normal PULMONARY Pulmonary: Present effort normal, Present breath sounds normal CARDIOVASCULAR Cardiovascular: Present regular rhythm, Present heart sounds normal, Present capillary refill normal, Present normal rate GASTROINTESTINAL Abdominal: Present soft, Present nontender, Present bowel sounds normal GENITOURINARY Genitourinary: Present exam deferred SKIN Skin: Present warm, Present dry MUSCULOSKELETAL Musculoskeletal: Present ROM normal NEUROLOGICAL Neurological: Present alert, Present oriented x 3, Present no gross motor or sensory deficits PSYCHOLOGICAL Psychological: Present mood/affect normal, Present judgement normal Results Laboratory Result Diagram: 03/12/20 1532 03/12/20 1532 Laboratory Laboratory Tests Test 03/12/20 15:32 White Blood Count 8.99 x10e3/uL (4.8-10.8) Red Blood Count 4.61 x10e6/uL (3.6-5.1) Hemoglobin 12.3 g/dL (12.0-16.0) Hematocrit 39.1 % (34.2-44.1) Mean Corpuscular Volume 84.8 fL (81-99) Mean Corpuscular Hemoglobin 26.7 pg (28-32) Mean Corpuscular Hemoglobin Concent 31.5 g/dL (31-35) Red Cell Distribution Width 13.1 % (11.7-14.4) Platelet Count 393 x10e3/uL (140-360) Neutrophils (%) (Auto) 68.8 % (38.7-80.0) Lymphocytes (%) (Auto) 18.2 % (18.0-39.1) Monocytes (%) (Auto) 4.6 % (4.4-11.3) Eosinophils (%) (Auto) 5.7 % (0.0-6.0) Basophils (%) (Auto) 0.8 % (0.0-1.0) Neutrophils # (Auto) 6.2 (2.1-6.9) Lymphocytes # (Auto) 1.6 (1.0-3.2) Monocytes # (Auto) 0.4 (0.2-0.8) Eosinophils # (Auto) 0.5 (0.0-0.4) Basophils # (Auto) 0.1 (0.0-0.1) Absolute Immature Granulocyte (auto 0.17 x10e3/uL (0-0.1) Sodium Level 139 mmol/L (136-145) Potassium Level 4.0 mmol/L (3.5-5.1) Chloride Level 104 mmol/L (98-107) Carbon Dioxide Level 26 mmol/L (22-29) Anion Gap 13.0 mmol/L (8-16) Blood Urea Nitrogen 22 mg/dL (7-26) Creatinine 1.67 mg/dL (0.57-1.11) Estimat Glomerular Filtration Rate 31 ML/MIN (60-) BUN/Creatinine Ratio 13 (6-25) Glucose Level 207 mg/dL (74-118) Calcium Level 9.4 mg/dL (8.4-10.2) Total Bilirubin 0.2 mg/dL (0.2-1.2) Aspartate Amino Transf (AST/SGOT) 15 IU/L (5-34) Alanine Aminotransferase (ALT/SGPT) 19 IU/L (0-55) Alkaline Phosphatase 167 IU/L (40-150) Total Protein 7.1 g/dL (6.5-8.1) Albumin 3.0 g/dL (3.5-5.0) Globulin 4.1 g/dL (2.3-3.5) Albumin/Globulin Ratio 0.7 (0.8-2.0) Lab results reviewed: Yes Imaging Imaging results reviewed: Yes Imaging Comments IMPRESSION: 1. Post surgical changes in the right flank and right upper retroperitoneum in keeping with recent partial right nephrectomy. Absence of IV contrast limits evaluation for abscess, however no evidence of drainable fluid collection. 2. 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 3. Soft tissue nodularity in both breasts, including a 2.1 cm lobulated left lower breast nodule. Recommend referral to dedicated breast imaging center for diagnostic mammographic evaluation. 4. Calcified uterine fibroids 5. Small right pleural effusion with right right basilar atelectasis/scarring. Assessment & Plan Medical Decision Making MDM 64-year-old. Patient arrived to the ED with complaints of flank pain. Patient's pain resolved upon arrival to the ED. Patient's urologist informed, basic lab work including CBC and CMP done which were unremarkable. Patient stable for discharge. Assessment & Plan Final Impression: (1) Flank pain Depart Disposition: HOME, SELF-CARE Last Vital Signs Date Time Temp Pulse Resp B/P (MAP) Pulse Ox O2 Delivery O2 Flow Rate FiO2 03/12/20 15:47 97.5 59 18 159/98 97 Room Air Home Meds Reported Medications Sennosides (SENNA LAX) 8.6 Mg Tablet, 8.6 MG PO BID, #60 TAB 2 Refills 03/08/20 Ondansetron Hcl* (ZOFRAN*) 4 Mg Tablet, 4 MG SL Q4HR PRN for NAUSEA AND VOMITING, #60 0 Refills 03/08/20 Metoprolol Tartrate (LOPRESSOR) 25 Mg Tab, 50 MG PO BID, #60 TAB 2 Refills 03/08/20 Omeprazole (OMEPRAZOLE) 40 Mg Capsule.dr, 40 MG PO DAILY@0600, #30 0 Refills 03/08/20 Cephalexin Monohydrate (KEFLEX) 500 Mg Capsule, 500 MG PO TID, #15 03/08/20 Celecoxib* (CELEBREX*) 100 Mg Capsule, 100 MG PO BID PRN for PAIN, #30 CAP 0 Refills 03/08/20 Tramadol Hcl (ULTRAM) 50 Mg Tablet, 50 MG PO Q6H PRN for PAIN, #50 TAB 0 Refills 03/08/20 Atorvastatin Calcium (ATORVASTATIN CALCIUM) 20 Mg Tablet, 40 MG PO HS, #30 TAB 02/25/20 Nifedipine (NIFEDIPINE) 10 Mg Cap, 30 MG PO HS, #90 CAP 02/25/20 Nph, Human Insulin Isophane (NOVOLIN N) 100 Unit/1 Ml Vial, 20 UNITS SQ HS 02/25/20 Nph, Human Insulin Isophane (NOVOLIN N) 100 Unit/1 Ml Vial, 40 UNITS SQ DAILY 02/25/20 SONAM CAMACHO, Mar 12, 2020 17:22
== END 2020-03-12 17:18 | disposition home or self-care (01) ==
LOC: ER 15:22
DX: M54.5 Low back pain (principal); Z98.890 Other specified postprocedural states; J90 Pleural effusion, not elsewhere classified; N63.20 Unspecified lump in the left breast, unspecified quadrant
CPT/HCPCS: 36415; 80053; 85025; 99283

== ENCOUNTER 2020-03-13 18:15 | Emergency (ER) | payer OTHER ==
[~2020-03-13] VITALS: Ht 167.6 cm; Wt 90.3 kg
[2020-03-13] MEDS ORDERED: ONDANSETRON HCL INJ 2MG/ML 2ML 2 MG/ML VIAL IV STA (19:22)
--- NOTE | 2020-03-13 19:24 | Emergency Department Note ---
History of Present Illnes History of Present Illness Chief Complaint: Abdominal Complaints History of Present Illness This is a 64 year old female IN FROM HOME WITH COMPLAINTS OF NAUSEA AND VOMITING X 3 DAYS; STATES WAS SEEN YESTERDAY FOR THE SAME AND DISCHARGED HOME. PATIENT STATES THAT SHE HAD BREAKFAST THIS MORNING BUT DID NOT TAKE HER NAUSEA MEDICATIONS BEFORE HAND AND VOMITED. PATIENT ALERT AND ORIENTED, RESP EVEN AND NONLABORED, APPEARS IN NO DISTRESS, RATES PAIN 5/10. PATIENT HAD RECENT PARTIAL RIGHT NEPHRECTOMY BY DR CORDON. Historian: Patient Arrival Mode: Car Onset (how long ago): day(s) (3) Location: ABDOMEN Quality: PAIN, VOMITING Radiation: Reports non-radiation Severity: moderate Onset quality: gradual Duration (how long): day(s) (3) Timing of current episode: constant Progression: worsening Chronicity: new Context: Reports recent surgery (PARTIAL RIGHT NEPHRECTOMY 10 DAYS AGO); Denies recent illness Relieving factors: none Exacerbating factors: eating Associated symptoms: Reports nausea/vomiting Treatments prior to arrival: none Past Medical/Family History Physician Review I have reviewed the patient's past medical and family history. Any updates have been documented here. Past Medical History Recent Fever: No Clinical Suspicion of Infectio: No New/Unexplained Change in Ment: No Other Medical History: KIDNEY MASS Other Surgery: PARTIAL RIGHT NEPHRECTOMY Social History Smoking Cessation: Never Smoker Alcohol Use: None Any Illegal Drug Use: No Physically hurt or threatened: No Review of Systems Review of Systems Constitutional: Reports no symptoms EENTM: Reports no symptoms Cardiovascular: Reports no symptoms Respiratory: Reports no symptoms Gastrointestinal: Reports as per HPI Genitourinary: Reports no symptoms Musculoskeletal: Reports no symptoms Integumentary: Reports no symptoms Neurological: Reports no symptoms Psychological: Reports no symptoms Endocrine: Reports no symptoms Hematological/Lymphatic: Reports no symptoms Physical Exam Related Data Allergies: Coded Allergies: codeine (Verified Allergy, Unknown, 03/12/20) Triage Vital Signs Vital Signs Date Time Temp Pulse Resp B/P (MAP) Pulse Ox O2 Delivery O2 Flow Rate FiO2 03/13/20 19:02 97.4 79 18 167/77 96 Room Air Vital signs reviewed: Yes Physical Exam CONSTITUTIONAL Constitutional: Present well-developed, Present well-nourished; Absent distressed HENT HENT: Present normocephalic, Present atraumatic, Present oropharynx clear/moist, Present nose normal HENT L/R: Present left ext ear normal, Present right ext ear normal EYES Eyes: Reports PERRL, Reports conjunctivae normal NECK Neck: Present ROM normal PULMONARY Pulmonary: Present effort normal, Present breath sounds normal CARDIOVASCULAR Cardiovascular: Present regular rhythm, Present heart sounds normal, Present capillary refill normal, Present normal rate GASTROINTESTINAL Abdominal: Present soft, Present bowel sounds normal, Present tender (DIFFUSE BUT WORSE TO RIGHT SIDE) GENITOURINARY Genitourinary: Present exam deferred SKIN Skin: Present warm, Present dry MUSCULOSKELETAL Musculoskeletal: Present ROM normal NEUROLOGICAL Neurological: Present alert, Present oriented x 3, Present no gross motor or sensory deficits PSYCHOLOGICAL Psychological: Present mood/affect normal, Present judgement normal Results Laboratory Laboratory Laboratory Tests Test 03/13/20 19:18 White Blood Count 9.31 x10e3/uL (4.8-10.8) Red Blood Count 4.60 x10e6/uL (3.6-5.1) Hemoglobin 12.4 g/dL (12.0-16.0) Hematocrit 38.9 % (34.2-44.1) Mean Corpuscular Volume 84.6 fL (81-99) Mean Corpuscular Hemoglobin 27.0 pg (28-32) Mean Corpuscular Hemoglobin Concent 31.9 g/dL (31-35) Red Cell Distribution Width 13.2 % (11.7-14.4) Platelet Count 419 x10e3/uL (140-360) Neutrophils (%) (Auto) 79.0 % (38.7-80.0) Lymphocytes (%) (Auto) 12.7 % (18.0-39.1) Monocytes (%) (Auto) 3.5 % (4.4-11.3) Eosinophils (%) (Auto) 3.1 % (0.0-6.0) Basophils (%) (Auto) 0.5 % (0.0-1.0) Neutrophils # (Auto) 7.4 (2.1-6.9) Lymphocytes # (Auto) 1.2 (1.0-3.2) Monocytes # (Auto) 0.3 (0.2-0.8) Eosinophils # (Auto) 0.3 (0.0-0.4) Basophils # (Auto) 0.1 (0.0-0.1) Absolute Immature Granulocyte (auto 0.11 x10e3/uL (0-0.1) Sodium Level 142 mmol/L (136-145) Potassium Level 4.0 mmol/L (3.5-5.1) Chloride Level 104 mmol/L (98-107) Carbon Dioxide Level 28 mmol/L (22-29) Anion Gap 14.0 mmol/L (8-16) Blood Urea Nitrogen 17 mg/dL (7-26) Creatinine 1.44 mg/dL (0.57-1.11) Estimat Glomerular Filtration Rate 37 ML/MIN (60-) BUN/Creatinine Ratio 12 (6-25) Glucose Level 181 mg/dL (74-118) Calcium Level 9.8 mg/dL (8.4-10.2) Total Bilirubin 0.2 mg/dL (0.2-1.2) Aspartate Amino Transf (AST/SGOT) 15 IU/L (5-34) Alanine Aminotransferase (ALT/SGPT) 20 IU/L (0-55) Alkaline Phosphatase 167 IU/L (40-150) Total Protein 7.4 g/dL (6.5-8.1) Albumin 3.2 g/dL (3.5-5.0) Globulin 4.2 g/dL (2.3-3.5) Albumin/Globulin Ratio 0.8 (0.8-2.0) Amylase Level 102 U/L (25-125) Lipase 152 U/L (8-78) Lab results reviewed: Yes Imaging Imaging results reviewed: Yes Impressions Procedure: [id number] CT/CT ABDOMEN/PELVIS WO Exam Date: 03/13/20 Exam Time: 1929 REPORT STATUS: Signed EXAM: CT Abdomen and Pelvis WITHOUT contrast INDICATION: ^ABD PAIN N/V, PARTIAL RIGHT NEPHRECTOMY 10 DAYS AGO ^[id number] ^1929 ^Y COMPARISON: None. TECHNIQUE: Abdomen and pelvis were scanned utilizing a multidetector helical scanner from the lung base to the pubic symphysis without administration of IV contrast. Absence of intravenous contrast decreases sensitivity for detection of focal lesions and vascular pathology. Coronal and sagittal reformations were obtained. Routine protocol was performed. IV CONTRAST: None ORAL CONTRAST: None COMPLICATIONS: None RADIATION DOSE: Total DLP: 646 mGy*cm Estimated effective dose: (DLP x 0.015 x size factor) mSv CTDIvol has been reviewed. It is below the limits set by the Radiation Protocol Committee (RPC). Dose modulation, iterative reconstruction, and/or weight based adjustment of the mA/kV was utilized to reduce the radiation dose to as low as reasonably achievable. FINDINGS: LINES and TUBES: Internalized right nephroureteral catheter with proximal colon the renal pelvis and distal coil in the bladder lumen. LOWER THORAX: Small right pleural effusion with right lower lobe round posterior basilar dependent consolidation and scarring. HEPATOBILIARY: No focal hepatic lesions. No biliary ductal dilation. GALLBLADDER: Cholecystectomy clips. No radio-opaque stones or sludge. No wall thickening. SPLEEN: No splenomegaly. PANCREAS: No focal masses or ductal dilatation. ADRENALS: No adrenal nodules. 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 KIDNEYS/URETERS: Partial right renal superior pole nephrectomy with trace fat stranding and fluid. No hydronephrosis. No cystic or solid mass lesions. No stones. GI TRACT: No abnormal distention, wall thickening, or evidence of bowel obstruction. Appendix is normal. PELVIC ORGANS/BLADDER: A 5.6 x 4 cm mostly fatty mass with sparse soft tissue components in the right adnexa . Calcified uterine fibroids. LYMPH NODES: No lymphadenopathy. VESSELS: Arterial calcifications. PERITONEUM / RETROPERITONEUM: No free air or fluid. BONES: Degenerative changes. Transitional anatomy at L5-S1. SOFT TISSUES: Edema/stranding in right flank subcutaneous adipose. Trace air foci in right lower lateral chest wall.. Soft tissue nodularity in both breasts. IMPRESSION: 1. Post surgical changes in the right flank and right upper retroperitoneum in keeping with recent partial right nephrectomy. Absence of IV contrast limits evaluation for abscess, however no evidence of drainable fluid collection. 2. 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 3. Soft tissue nodularity in both breasts, including a 2.1 cm lobulated left lower breast nodule. Recommend referral to dedicated breast imaging center for diagnostic mammographic evaluation. 4. Calcified uterine fibroids 5. Small right pleural effusion with right right basilar atelectasis/scarring. Signed by: Gabrielle Ibanez DO on 03/13/2020 9:30 PM Dictated By: GABRIELLE IBANEZ DO 29 Transcribed By: SHIRA on 03/13/202129 COPY TO: FERMÍN ANDRADE MD~ Assessment & Plan Medical Decision Making MDM PT WITH ABD PAIN AND VOMITING FOR 3 DAYS, PARTIAL RIGHT NEPHRECTOMY 10 DAYS AGO CBC, CMP, AMYLASE, LIPASE, CT ABD/PELVIS ORDERED TO EVAL FOR PANCREATITIS, ELEVATED LFT'S, SBO, COLITIS, DIVERTICULITIS, APPENDICITIS pt with pancreatitis, no beds available at this facility, pt will need transfer to another hospital for further care i spoke with dr mary and dr cordon, accepts pt for transfer to [facility]) Assessment & Plan Final Impression: (1) Pancreatitis Depart Disposition: TRANS TO OTHER [facility] Last Vital Signs Date Time Temp Pulse Resp B/P (MAP) Pulse Ox O2 Delivery O2 Flow Rate FiO2 03/13/20 19:02 97.4 79 18 167/77 96 Room Air Home Meds Reported Medications Sennosides (SENNA LAX) 8.6 Mg Tablet, 8.6 MG PO BID, #60 TAB 2 Refills 03/08/20 Ondansetron Hcl* (ZOFRAN*) 4 Mg Tablet, 4 MG SL Q4HR PRN for NAUSEA AND VOMITING, #60 0 Refills 03/08/20 Metoprolol Tartrate (LOPRESSOR) 25 Mg Tab, 50 MG PO BID, #60 TAB 2 Refills 03/08/20 Omeprazole (OMEPRAZOLE) 40 Mg Capsule., 40 MG PO DAILY@0600, #30 0 Refills 03/08/20 Cephalexin Monohydrate (KEFLEX) 500 Mg Capsule, 500 MG PO TID, #15 03/08/20 Celecoxib* (CELEBREX*) 100 Mg Capsule, 100 MG PO BID PRN for PAIN, #30 CAP 0 Re fills 03/08/20 Tramadol Hcl (ULTRAM) 50 Mg Tablet, 50 MG PO Q6H PRN for PAIN, #50 TAB 0 Refills 03/08/20 Atorvastatin Calcium (ATORVASTATIN CALCIUM) 20 Mg Tablet, 40 MG PO HS, #30 TAB 02/25/20 Nifedipine (NIFEDIPINE) 10 Mg Cap, 30 MG PO HS, #90 CAP 02/25/20 Nph, Human Insulin Isophane (NOVOLIN N) 100 Unit/1 Ml Vial, 20 UNITS SQ HS 02/25/20 Nph, Human Insulin Isophane (NOVOLIN N) 100 Unit/1 Ml Vial, 40 UNITS SQ DAILY 02/25/20 Discontinued Reported Medications Lisinopril (LISINOPRIL) 2.5 Mg Tablet, 2.5 MG PO DAILY, #30 TAB 02/25/20 FERMÍN ANDRADE MD Mar 13, 2020 19:24
[2020-03-13 19:30] LABS: BASOPHILS # (AUTO) 0.1 (0.0-0.1); BASOPHILS % 0.5 % (0.0-1.0); EOSINOPHILS # (AUTO) 0.3 (0.0-0.4); EOSINOPHILS % 3.1 % (0.0-6.0); HEMATOCRIT 38.9 % (34.2-44.1); HEMOGLOBIN 12.4 g/dL (12.0-16.0); LYMPHOCYTES # (AUTO) 1.2 (1.0-3.2); LYMPHOCYTES % 12.7 % (18.0-39.1); MEAN CORPUSCULAR HGB CONC 31.9 g/dL (31-35); MEAN CORPUSCULAR VOLUME 84.6 fL (81-99); MONOCYTES # (AUTO) 0.3 (0.2-0.8); MONOCYTES % 3.5 % (4.4-11.3); NEUTROPHILS # (AUTO) 7.4 (2.1-6.9); PLATELET COUNT 419 x10e3/uL (140-360); RED CELL DISTRIBUTION WIDTH 13.2 % (11.7-14.4)
[2020-03-13] MEDS ORDERED: SODIUM CHLORIDE 0.9% 1000ML 1,000 ML IV SCH (19:30)
[2020-03-13 19:44] LABS: AMYLASE 102 U/L (25-125); LIPASE 152 U/L (8-78)
[2020-03-13 19:48] LABS: ALBUMIN 3.2 g/dL (3.5-5.0); ALBUMIN/GLOBULIN RATIO 0.8 (0.8-2.0); CALCIUM 9.8 mg/dL (8.4-10.2); CREATININE, SERUM 1.44 mg/dL (0.57-1.11)
--- OUTSIDE RECORDS SUMMARY | 2020-03-13 19:59 | XMS REPORT | Clinical Summary ---
Author Author [facility] Organization [facility] Address Unknown Phone Unavailable Care Team Providers Care General Maintenance Helper Name Role Phone PCP Unavailable Allergies Comments [...] Added automatically from request for monica zapata [id number] Nuclear sclerotic cataract of both eyes 02/28/2017 [...] ot Implanted Type Area Manufactur er 09/03/2020 [id number] / [id number] / Implant [employer] 1 Piece Implant Left: Eye, Morales [id number] 22.5d - [id number] eye Anterior [employer] Implanted: Qty: 1 on 04/03/2017 by Irina Webber ResidentMD at [facility] 02/25/2021 / [id number] / Implant [employer] 1 Piece Implant Right : Eye, [id number] 22.0d - [id number] eye Anterio r Implanted: Qty: 1 on 05/06/2017 by Juan Ruiz MD at [facility] Results Not on fileafter 03/13/2019
--- OUTSIDE RECORDS SUMMARY | 2020-03-13 20:00 | XMS REPORT | Continuity of Care Document ---
Author Author [facility] t Organization [facility] Address [address] [place] [address] Phone Unavailable Care Team Providers Care Rn Transition Name Role Phone MD MERT MEDINA PCP CHELSEY TOLEDO Attphys Unavailable RASSOLI, AMIR Attphys Unavailable CHELSEY TOLEDO Admphys Unavailable RASSOLI, AMIR Admphys Unavailable Payers Payer Name Policy Type Policy Number Effective Date Expiration Date Valentina Elizondo [id number] 2019 00:00:00 [facility] Cdc Review Covid19 [id number] [facility] Problems Condition Name Condition Details Condition Category Status Onset Date Resolution Date Last Treatment Date Treating Clinician Comments Source Type 2 diabetes mellitus not at goal Type 2 diabetes mellitu s not at goal Disease Active 2017-08-06 00:00:00 [facility] Pseudophakia Pseudophakia Disease Active 2017-04-04 00:00:00 [facility] Cataract Cataract Disease Active 2017-03-07 00:00:00 Overview: Added automatically from request for surgery [id number] [facility] Nuclear sclerotic cataract of both eyes Nuclear sclerotic ca taract of both eyes Disease Active 2017-02-28 00:00:00 [facility] Mixed hyperlipidemia Mixed hyperlipidemia Disease Active 00:00:00 [facility] Vitamin D deficiency Vitamin D deficiency Disease Active 00:00:00 [facility] Type 2 diabetes mellitus with complicati on, without long-term current use of insulin Type 2 diabetes mellitus with complicati on, without long-term current use of insulin Disease Active 2016-01-16 00:00:00 [facility] Secondary hypertension Secondary hypertension Disease Active 2016-01-16 00:00:00 [facility] Blurry vision, bilateral Blurry vision, bilateral Disease Acti ve 2016-01-16 00:00:00 [facility] Problem Condition Active [facility] Allergies, Adverse Reactions, Alerts Allergy Name Allergy Type Status Severity Reaction(s) Onset Date Inacti ve Date Treating Clinician Comments Source Codeine Allergy to substance Active 2020-03-12 00:00:00 [facility] codeine DA Active [place] 2019-03-29 00:00:00 [facility] codeine DA Active [place] 2018-11-06 00:00:00 [facility] Codeine Propensity to adverse reactions to drug Active Nausea and Vomiting 2016-01-11 00:00:00 [facility] Family History Family Member Diagnosis Comments Start Date Stop Date Source Natural father Heart [facility] Natural father Hy[facility]ension [facility] Natural father Stroke [facility] Maternal aunt Glaucoma [facility] Maternal grandmother Glaucoma [facility] Natural mother Arthritis [facility] Natural sister Cataracts [facility] Natural sister Diabetes [facility] Natural son Asthma [facility] Social History Social Habit Start Date Stop Date Quantity Comments Source Sex Assigned At formerly [facility] Alcohol intake 2018-10-07 00:00:00 2018-10-07 00:00:00 Current non-drinker of alcohol (finding) [facility] SDOH Food Worry 2017-01-17 00:00:00 2017-01-17 00:00:00 1 [facility] Food Scarcity 2017-01-17 00:00:00 2017-01-17 00:00:[address] [facility] Smoking Status Start Date Stop Date Source Never smoker [facility] Medications Ordered Medication Name Filled Medication Name Start Date Stop Da te Current Medication? Ordering Clinician Indication Dosage Frequency Signature (SIG) Comments Components Source pioglitazone (ACTOS) 15 mg tablet 2017-08-13 00:00:00 Yes Poorly controlled diabetes mellitus 15mg QD Take 1 tablet by mouth daily. [facility] glyBURIDE micronized (GLYNASE) 6 mg tablet 2017-08-06 00:00: 00 Yes Type 2 diabetes mellitus not at goal 6mg Q.5D Take 1 tab let by mouth 2 times daily (before meals). [facility] metFORMIN (GLUCOPHAGE) 500 mg tablet 2017-08-06 00:00:00 Yes Type 2 diabetes mellitus not at goal 1000mg Take 2 tab lets by mouth 2 times daily (with meals). [facility] gabapentin (NEURONTIN) 300 mg capsule 2017-07-28 00:00:00 Yes Paresthesia of both feet 300mg Take 1 capsule by mouth at bedtime nightly. [facility] linagliptin (TRADJENTA) 5 mg tablet 2017-07-28 00:00:00 Yes Type 2 diabetes mellitus with complication, without long-term current use of insulin 5mg QD Take 1 tablet by mouth daily. [facility] fenofibrate nanocrystallized (TRICOR) 48 mg tablet 2017-07 00:00:00 Yes Preventative health care 48mg QD Take 1 tablet by mouth da dyan. [facility] atorvastatin (LIPITOR) 20 mg tablet 2017-07-28 00:00:00 Yes Mixed hyperlipidemia 20mg Take 1 tablet by mouth at bedtime nightly. [facility] blood glucose meter (PRECISION XTRA GLUCOMETER) 2017-07-28 0 0:00:00 Yes Type 2 diabetes mellitus with complication, without long-term current use of insulin Use as directed.. [facility] blood glucose (PRECISION XTRA TEST STRIPS) test strips 2017-07-28 00:00:00 Yes Type 2 diabetes mellitus wit h complication, without long-term current use of insulin Use 2 times weekly ( once per day on Fri,) to test blood sugar. [facility] lancets 28 gauge 2017-07-28 00:00:00 Yes Type 2 diabetes mellitus with complication, without long-term current use of insulin Use 2 times weekly as directed. [facility] lisinopril (ZESTRIL) 2.5 mg tablet 2017-07-28 00:00:00 Y es Albuminuria 2.5mg QD Take 1 tablet by mouth daily. [facility] prednisoLONE acetate (PRED FORTE) 1 % ophthalmic suspension 2017-05-07 00:00:00 Yes Status post toni ract extraction and insertion of intraocular lens of right eye 1[drp] Instill 1 Drop in right eye [address] [facility] ketoconazole (NIZORAL) 2 % topical cream 2017-02-25 00:00:00 Yes Tinea cruris Q.5D Apply to affected area [address] [facility] naproxen (NAPROSYN) 500 mg tablet 2016-07-09 00:00:00 Yes Acute pain of right knee 500mg Take 1 tablet by mouth 2 times daily as needed for Pain. [facility] ergocalciferol (VITAMIN D2) 50,000 unit capsule 2016-01-31 0 0:00:00 Yes Vitamin D deficiency 36816P Take 1 capsule by mouth weekly. [facility] Atorvastatin Calcium Atorvastatin Calcium Yes 40 Bedtime [facility] Celecoxib (Celebrex*) 100 Mg CAPSULE Celecoxib (Celebrex*) 100 Mg C APSULE Yes 100 Twice A Day as needed for Pain [facility] Cephalexin Monohydrate (Keflex) 500 Mg CAPSULE Cephale eriberto Monohydrate (Keflex) 500 Mg CAPSULE Yes 500 Three Times A Day [facility] Metoprolol Tartrate (Lopressor) 25 Mg TAB Metoprolol T artrate (Lopressor) 25 Mg TAB Yes 50 Twice A Day [facility] Nifedipine Nifedipine Yes 30 Bedtime [facility] Nph, Human Insulin Isophane (Novolin N) 100 Unit/1 Ml VIAL Nph, Human Insulin Isophane (Novolin N) 100 Unit/1 Ml VIAL Yes 40 Daily [facility] Nph, Human Insulin Isophane (Novolin N) 100 Unit/1 Ml VIAL Nph, Human Insulin Isophane (Novolin N) 100 Unit/1 Ml VIAL Yes 20 Bedtime [facility] Omeprazole Omeprazole Yes 40 Daily@0600 [facility] Ondansetron Hcl (Zofran*) 4 Mg TABLET Ondansetron Hcl (Zofran*) 4 M g TABLET Yes 4 Every 4 Hours as needed for Nausea And V omiting [facility] Sennosides (Senna Lax) 8.6 Mg TABLET Sennosides (Senna Lax) 8.6 Mg TABLET Yes 8.6 Twice A Day [facility] Tramadol Hcl (Ultram) 50 Mg TABLET Tramadol Hcl (Ultram) 50 Mg TABLET Yes 50 Every 6 Hours as needed for Pain [facility] Lisinopril Lisinopril 2020-03-08 00:00:00 No 2.5 Jennifer ly [facility] Metformin Hcl Metformin Hcl 2020-02-25 00:00:00 No 500 Twice A Day [facility] Immunizations Ordered Immunization Name Filled Immunization Name Date Status Comments Source Hepatitis B Pedi/Adol 2017-08-13 00:00:[address] [facility] PPV 23 (Pneumococcal Polysaccharide 23 Valent) 2017-08 00:00:[address] [facility] Tdap Tetanus, diphtheria, acellular pertussis Vaccine 2016-01-16 00:00:[address] [facility] Pcv-13 Pneumococcal Conjugate 2016-01-11 00:00:[address] [facility] Influenza <Unspecified> 2016-01-06 00:00:[address] [facility] Vital Signs Vital Name Observation Time Observation Value Comments Source Body Temperature 2020-03-12 17:15:00 98.2 [degF] [facility] Heart Rate 2020-03-12 17:15:00 78 /min [facility] Respiratory rate 2020-03-12 17:15:00 18 /min [facility] BP Systolic 2020-03-12 17:15:00 171 mm[Hg] [facility] BP Diastolic 2020-03-12 17:15:00 68 mm[Hg] [facility] Oxygen saturation by Pulse oximetry 2020-03-12 17:15:00 99 /min [facility] Weight 2020-03-12 15:12:00 199 [lb_av] [facility] BMI (Body Mass Index) 2020-03-12 15:12:00 32.1 kg/m2 [facility] Body Temperature 2020-03-08 12:00:00 98.8 [degF] [facility] Heart Rate 2020-03-08 12:00:00 66 /min [facility] Respiratory rate 2020-03-08 12:00:00 18 /min [facility] BP Systolic 2020-03-08 12:00:00 151 mm[Hg] [facility] BP Diastolic 2020-03-08 12:00:00 71 mm[Hg] [facility] Oxygen saturation by Pulse oximetry 2020-03-08 12:00:00 94 /min [facility] BMI (Body Mass Index) 2020-03-06 20:16:00 32.1 kg/m2 [facility] Weight 2020-03-04 07:55:00 199 [lb_av] [facility] Procedures Procedure Date / Time Performed Performing Clinician [facility] e X-ray of chest, two views 2020-03-06 00:00:00 [facility] X-ray of chest, two views 2020-02-25 00:00:00 [facility] Plan of Care Planned Activity Planned Date Details Comments Source Future Scheduled Test 2020-02-03 00:00:00 IMM Influenza Seas onal Feb to July (>/= 19 yrs) [code = IMM Influenza Seasonal Feb to July (>/= 19 yrs)] [facility] Scheduled Test 2018-07-28 00:00:00 Hemoglobin A1c jennifer surement (procedure) [code = 28082685] [facility] Scheduled Test 2018-02-28 00:00:00 DM Retinal Exam (Y early) [code = DM Retinal Exam (Yearly)] [facility] Scheduled Test 2018-01-17 00:00:00 DM Foot Exam (Year ly) [code = DM Foot Exam (Yearly)] [facility] Scheduled Test 2017-02-15 00:00:00 Breast Cancer Scrn (Yearly) [code = Breast Cancer Scrn (Yearly)] [facility] Scheduled Test 2017-01-23 00:00:00 Screening for keo gnant neoplasm of colon (procedure) [code = 506986010] [facility] Scheduled Test 2010-03-27 00:00:00 Screening for keo gnant neoplasm of cervix (procedure) [code = 690971816] [facility] Scheduled Test 1987-12-27 00:00:00 Screening for keo gnant neoplasm of cervix (procedure) [code = 056969140] [facility] Encounters Start Date/Time End Date/Time Encounter Type Admission Type Attendi [facility] Care Department Encounter ID Source 2020-03-12 15:22:00 2020-03-12 17:18:00 Departed Emergency Room [facility] [id number] [facility] 2020-03-01 14:48:00 2020-03-08 16:15:00 Discharged Inpatient 3 CHELSEY TOLEDO [facility] [id number] [facility] 2018-01-20 00:00:00 2018-01-20 00:00:00 Outpatient [facility] [id number] [facility] 2017-11-13 00:00:00 2017-11-13 00:00:00 Outpatient [facility] [id number] [facility] 2017-09-30 00:00:00 2017-09-30 00:00:00 Outpatient [facility] [id number] [facility] 2017-09-12 00:00:00 2017-09-12 00:00:00 Outpatient [facility] [id number] [facility] 2017-09-10 00:00:00 2017-09-10 00:00:00 Outpatient [facility] [id number] [facility] 2017-09-10 00:00:00 2017-09-10 00:00:00 Outpatient [facility] [id number] [facility] 2017-09-03 00:00:00 2017-09-03 00:00:00 Outpatient [facility] [id number] [facility] 2017-08-29 00:00:00 2017-08-29 00:00:00 Outpatient [facility] [id number] [facility] 2017-08-27 00:00:00 2017-08-27 00:00:00 Outpatient [facility] [id number] [facility] 2017-08-15 00:00:00 2017-08-15 00:00:00 Outpatient [facility] [id number] [facility] 2017-08-15 00:00:00 2017-08-15 00:00:00 Outpatient [facility] [id number] [facility] 2017-08-13 13:39:04 2017-08-13 13:39:04 Outpatient [facility] [id number] [facility] 2017-08-13 00:00:00 2017-08-13 00:00:00 Outpatient [facility] [id number] [facility] 2017-08-13 00:00:00 2017-08-13 00:00:00 Outpatient [facility] [id number] [facility] 2017-08-13 00:00:00 2017-08-13 00:00:00 Outpatient [facility] [id number] [facility] 2017-08-08 00:00:00 2017-08-08 00:00:00 Outpatient [facility] [id number] [facility] 2017-08-06 10:17:09 2017-08-06 10:17:09 Outpatient [facility] [id number] [facility] 2017-08-06 09:59:17 2017-08-06 09:59:17 Outpatient [facility] [id number] [facility] 2017-08-06 09:00:44 2017-08-06 09:00:44 Outpatient [facility] [id number] [facility] 2017-07-31 15:44:04 2017-07-31 15:44:04 Outpatient [facility] [id number] [facility] 2017-07-30 00:00:00 2017-07-30 00:00:00 Outpatient [facility] [id number] [facility] 2017-07-28 14:54:46 2017-07-28 14:54:46 Outpatient [facility] [id number] [facility] 2017-07-28 13:40:04 2017-07-28 13:40:04 Outpatient [facility] [id number] [facility] 2017-07-03 00:00:00 2017-07-03 00:00:00 Outpatient [facility] [id number] [facility] 2017-06-16 00:00:00 2017-06-16 00:00:00 Outpatient [facility] [id number] [facility] 2017-06-05 00:00:00 2017-06-05 00:00:00 Outpatient [facility] [id number] [facility] 2017-05-28 00:00:00 2017-05-28 00:00:00 Outpatient [facility] [id number] [facility] 2017-05-15 10:18:02 2017-05-15 10:18:02 Outpatient [facility] [id number] [facility] 2017-05-07 09:46:05 2017-05-07 09:46:05 Outpatient [facility] [id number] [facility] 2017-05-06 06:56:00 2017-05-06 06:56:00 Outpatient [facility] [id number] [facility] 2017-05-06 00:00:00 2017-05-06 00:00:00 Outpatient [facility] [id number] [facility] 2017-05-01 10:54:30 2017-05-01 10:54:30 Outpatient [facility] [id number] [facility] 2017-05-01 00:00:00 2017-05-01 00:00:00 Outpatient [facility] [id number] [facility] 2017-04-25 00:00:00 2017-04-25 00:00:00 Outpatient [facility] [id number] [facility] 2017-04-18 00:00:00 2017-04-18 00:00:00 Outpatient [facility] [id number] [facility] 2017-04-16 12:01:13 2017-04-16 12:01:13 Outpatient [facility] [id number] [facility] 2017-04-16 00:00:00 2017-04-16 00:00:00 Outpatient [facility] [id number] [facility] 2017-04-04 08:11:13 2017-04-04 08:11:13 Outpatient [facility] [id number] [facility] 2017-04-03 07:03:00 2017-04-03 07:03:00 Outpatient [facility] [id number] [facility] 2017-04-03 00:00:00 2017-04-03 00:00:00 Outpatient [facility] [id number] [facility] 2017-03-21 09:24:13 2017-03-21 09:24:13 Outpatient [facility] [id number] [facility] 2017-03-21 00:00:00 2017-03-21 00:00:00 Outpatient [facility] [id number] [facility] Results Test Description Test Time Test Comments Results Result Comments Source Blood leukocytes automated count (number/volume) 2020-03-12 15:32:00 Test Item White Blood Count (test code = 6690-2) 8.99 10*3/uL 4.8-10.8 [facility] count (number/volume)2020-03-12 15:32:00* Test Item Value Reference Range Interpretation Comments Red Blood Count (test code = 789-8) 4.61 10*6/mL 3.6-5.1 [facility] measurement (moles/volume)2020-03-12 15:32:00* Test Item Value Reference Range Interpretation Comments Hemoglobin (test code = 65811-7) 12.3 g/dL 12.0-16.0 [facility] hematocrit (volume fraction)2020-03-12 15:32:00* Test Item Value Reference Range Interpretation Comments Hematocrit (test code = 4544-3) 39.1 % 34.2-44.1 [facility] eryth[facility] mean corpuscular [id number] 15:32:00* Test Item Value Reference Range Interpretation Comments Mean Corpuscular Volume (test code = 787-2) 84.8 81-99 [facility] mean corpuscular hemoglobin (mass per erythrocyte)2020-03-12 15:32:00* Test Item Value Reference Range Interpretation Comments Mean Corpuscular Hemoglobin (test code = 785-6) 26.7 pg 28-32 [facility] mean corpuscular hemoglobin concentration measurement (mass/volume)2020-03-12 15:32:00* Test Item Value Reference Range Interpretation Comments Mean Corpuscular Hemoglobin Concent (test code = 786-4) 31.5 g/dL 31-35 [facility] HospitalRDW [id number]-[id number] 15:32:00* Test Item Value Reference Range Interpretation Comments Red Cell Distribution Width (test code = 99263-7) 13.1 % 11.7 -14.4 [facility] platelet count (count/volume)2020-03-12 15:32:00* Test Item Value Reference Range Interpretation Comments Platelet Count (test code = 777-3) 393 10*3/uL 140-360 [facility] segmented neutrophil count as percentage of total [id number] 15:32:00* Test Item Value Reference Range Interpretation Comments Neutrophils (%) (Auto) (test code = 76778-3) 68.8 % 38.7-80.0 [facility] lymphocyte count as percentage ot total [id number] 15:32:00* Test Item Value Reference Range Interpretation Comments Lymphocytes (%) (Auto) (test code = 736-9) 18.2 % 18.0-39.1 [facility] monocyte count as percentage of total wfyxpowjjp9005-34-03 15:32:00* Test Item Value Reference Range Interpretation Comments Monocytes (%) (Auto) (test code = 5905-5) 4.6 % 4.4-11.3 [facility] eosinophil count as percentage of total [id number] 15:32:00* Test Item Value Reference Range Interpretation Comments Eosinophils (%) (Auto) (test code = 713-8) 5.7 % 0.0-6.0 [facility] basophil count as percentage of total [id number] 15:32:00* Test Item Value Reference Range Interpretation Comments Basophils (%) (Auto) (test code = 706-2) 0.8 % 0.0-1.0 [facility] HospitalFluoroscopic procedure less than one hour [id number] 15:32:00* Test Item Value Reference Range Interpretation Comments IM GRANULOCYTES % (test code = IM GRANULOCYTES %) 1.9 % 0.0- 1.0 [facility] neutrophil count 2020-03-12 15:32:00* Test Item Value Reference Range Interpretation Comments Neutrophils # (Auto) (test code = 751-8) 6.2 2.1-6.9 [facility] lymphocytes count (number/volume) 2020-03-12 15:32:00* Test Item Value Reference Range Interpretation Comments Lymphocytes # (Auto) (test code = 29603-1) 1.6 1.0-3.2 [facility] monocytes automated count (number/volume)2020-03-12 15:32:00* Test Item Value Reference Range Interpretation Comments Monocytes # (Auto) (test code = 742-7) 0.4 0.2-0.8 [facility] eosinophil count 2020-03-12 15:32:00* Test Item Value Reference Range Interpretation Comments Eosinophils # (Auto) (test code = 711-2) 0.5 0.0-0.4 [facility] basophil count (count/volume)2020-03-12 15:32:00* Test Item Value Reference Range Interpretation Comments Basophils # (Auto) (test code = 704-7) 0.1 0.0-0.1 [facility] HospitalFluoroscopic procedure less than one hour [id number] 15:32:00* Test Item Value Reference Range Interpretation Comments Absolute Immature Granulocyte (auto (raman t code = Absolute Immature Granulocyte (auto) 0.17 10*3/uL 0-0.1 [facility] sodium measurement (moles/volume)2020-03-12 15:32:00* Test Item Value Reference Range Interpretation Comments Sodium Level (test code = 2951-2) 139 mmol/L 136-145 [facility] potassium measurement (moles/volume)2020-03-12 15:32:00* Test Item Value Reference Range Interpretation Comments Potassium Level (test code = 2823-3) 4.0 mmol/L 3.5-5.1 [facility] chloride measurement (moles/volume)2020-03-12 15:32:00* Test Item Value Reference Range Interpretation Comments Chloride Level (test code = 2075-0) 104 mmol/L 98-107 [facility] carbon dioxide, total measurement (moles/volume)2020-03-12 15:32:00* Test Item Value Reference Range Interpretation Comments Carbon Dioxide Level (test code = 2028-9) 26 mmol/L 22-29 [facility] anion [id number] 15:32:00* Test Item Value Reference Range Interpretation Comments Anion Gap (test code = 28794-2) 13.0 mmol/L 8-16 [facility] urea nitrogen measurement (mass/volume)2020-03-12 15:32:00* Test Item Value Reference Range Interpretation Comments Blood Urea Nitrogen (test code = 3094-0) 22 mg/dL 7-26 [facility] creatinine measurement (mass/volume)2020-03-12 15:32:00* Test Item Value Reference Range Interpretation Comments Creatinine (test code = 2160-0) 1.67 mg/dL 0.57-1.11 [facility] urea nitrogen/creatinine mass epmth4081-97-63 15:32:00* Test Item Value Reference Range Interpretation Comments BUN/Creatinine Ratio (test code = 3097-3) 13 6-25 [facility] HospitalEstimated glomerular filtration rate (GFR) vggvapzhxdjdq5186-49-44 15:32:00* Test Item Value Reference Range Interpretation Comments Estimat Glomerular Filtration Rate (test code = 582840885) 31 mL/mi n >60 Ranges were taken from the National Kidney Disease Education Program and the [facility] literature.Reference ranges:60 or greater: Ryudgd27-45 ( for 3 consecutive months): Chronic kidney disease 15 or less: Kidney failureMemorial Hermann Katy HospitalGlucose [id number] 15:32:00* Test Item Value Reference Range Interpretation Comments Glucose Level (test code = FGP9309) 207 mg/dL 74-118 [facility] calcium measurement (mass/volume)2020-03-12 15:32:00* Test Item Value Reference Range Interpretation Comments Calcium Level (test code = 26396-0) 9.4 mg/dL 8.4-10.2 [facility] total bilirubin measurement (mass/volume)2020-03-12 15:32:00* Test Item Value Reference Range Interpretation Comments Total Bilirubin (test code = 1975-2) 0.2 mg/dL 0.2-1.2 [facility] HospitalFluoroscopic procedure less than one hour ljhuhayh6081-10-15 15:32:00* Test Item Value Reference Range Interpretation Comments Aspartate Amino Transf (AST/SGOT) (test code = Aspartate Amino Transf (AST/SGOT)) 15 [IU]/L 5-34 [facility] alanine aminotransferase measurement (enzymatic activity/volume)2020-03-12 15:32:00* Test Item Value Reference Range Interpretation Comments Alanine Aminotransferase (ALT/SGPT) (test code = 1742-6) 19 [IU]/L 0-55 [facility] plasma protein measurement (mass/volume)2020-03-12 15:32:00* Test Item Value Reference Range Interpretation Comments Total Protein (test code = 2885-2) 7.1 g/dL 6.5-8.1 [facility] or plasma albumin measurement (mass/volume)2020-03-12 15:32:00* Test Item Value Reference Range Interpretation Comments Albumin (test code = 1751-7) 3.0 g/dL 3.5-5.0 [facility] HospitalPlasma globulin measurement (mass/volume) 2020-03-12 15:32:00* Test Item Value Reference Range Interpretation Comments Globulin (test code = 48720-5) 4.1 g/dL 2.3-3.5 [facility] or plasma albumin/globulin mass rxmry2649-76-04 15:32:00* Test Item Value Reference Range Interpretation Comments Albumin/Globulin Ratio (test code = 1759-0) 0.7 0.8-2.0 [facility] plasma alkaline phosphatase measurement (enzymatic activity/volume)2020-03-12 15:32:00* Test Item Value Reference Range Interpretation Comments Alkaline Phosphatase (test code = 6768-6) 167 [IU]/L 40-150 [facility] HospitalCapillary blood glucose measurement by glucometer (mass/volume)2020-03-08 09:11:00* Test Item Value Reference Range Interpretation Comments Bedside Glucose (test code = 37566-1) 227 mg/dL 70-120 Meter ID: [id number] [facility] glucose measurement by glucometer (mass/volume)2020-03-08 09:11:00* Test Item Value Reference Range Interpretation Comments Bedside Glucose (test code = 55049-1) 227 mg/dL 70-120 Meter ID: [id number] [facility] TylerCHEST 2 VIEWS 2020-03-06 10:19:00 [facility] 1955 Sex: F [facility] [address] [address] Patient Name: JAUN HART MR #: [id number] : 1955 Age/Sex: 64/F Req #: [id number] [facility] Physician: CHELSEY TOLEDO MD Orde red by: CANDICE ESPITIA MD Report #: [id number] Locat ion: [facility] Room/Bed: [place] [address] Procedure: [id number] DX/CHEST 2 VIEWS Exam Date: 03/06/20 Exam [...] CANDICE ESPITIA MD CHEST SINGLE (PORTABLE)2020-03-05 09:11:00 [facility] : 1955 Sex: F [facility] [address] [address] Patient Name: JAUN HART MR #: [id number] : 1955 Age/Sex: 64/F Req #: [id number] Adm Physician: CHELSEY TOLEDO MD Orde red by: RADHA MOSS MD Report #: [id number] Locati on: [facility] Room/Bed: [facility] 198-1 Procedure: [id number] DX/CHEST SINGLE (PORTABLE) Exam Date: 03/05 Exam Time: 0500 REPORT STATUS: Signed EXAMINATION: CHEST SINGLE (PORTABLE) INDICATION: Evaluate chest tube positioning and right apical pneumothorax. COMPARISON: Multiple prior chest x-rays including most sent on 03/04/2020 FINDINGS: TUBES and LINES: Right chest tube remains in place, probably slight advancement. LUNGS: Low lung volumes with bronchovascula r crowding and subsegmental atelectasis particularly at the [...] (test code = 6690-2) 10.56 10*3/uL 4.8-10.8 [facility] HospitalBlood erythrocytes automated count (number/volume)2020-03-05 04:50:00* Test Item Value Reference Range Interpretation Comments Red Blood Count (test code = 789-8) 3.98 10*6/mL 3.6-5.1 [facility] HospitalBlood hemoglobin measurement (moles/volume)2020-03-05 04:50:00* Test Item Value Reference Range Interpretation Comments Hemoglobin (test code = 14091-9) 11.1 g/dL 12.0-16.0 [facility] HospitalAutomated blood hematocrit (volume fraction)2020-03-05 04:50:00* Test Item Value Reference Range Interpretation Comments Hematocrit (test code = 4544-3) 34.4 % 34.2-44.1 [facility] HospitalAutomated erythrocyte mean corpuscular ycothq4414-10-39 04:50:00* Test Item Value Reference Range Interpretation Comments Mean Corpuscular Volume (test code = 787-2) 86.4 81-99 [facility] HospitalAutomated erythrocyte mean corpuscular hemoglobin (mass per erythrocyte)2020-03-05 04:50:00* Test Item Value Reference Range Interpretation Comments Mean Corpuscular Hemoglobin (test code = 785-6) 27.9 pg 28-32 [facility] HospitalAutomated erythrocyte mean corpuscular hemoglobin concentration measurement (mass/volume)2020-03-05 04:50:00* Test Item Value Reference Range Interpretation Comments Mean Corpuscular Hemoglobin Concent (test code = 786-4) 32.3 g/dL 31-35 [facility] HospitalRDW JytGo-Nne6680-93-01 04:50:00* Test Item Value Reference Range Interpretation Comments Red Cell Distribution Width (test code = 53735-2) 13.0 % 11.7 -14.4 [facility] HospitalAutomated blood platelet count (count/volume)2020-03-05 04:50:00* Test Item Value Reference Range Interpretation Comments Platelet Count (test code = 777-3) 274 10*3/uL 140-360 [facility] HospitalAutomated blood segmented neutrophil count as percentage of total jqwufljxwg2502-29-36 04:50:00* Test Item Value Reference Range Interpretation Comments Neutrophils (%) (Auto) (test code = 31832-6) 79.3 % 38.7-80.0 [facility] HospitalAutomated blood lymphocyte count as percentage ot total ssdrgoqrev7205-47-57 04:50:00* Test Item Value Reference Range Interpretation Comments Lymphocytes (%) (Auto) (test code = 736-9) 8.8 % 18.0-39.1 [facility] HospitalAutomated blood monocyte count as percentage of total tzjhjcsgfz7193-48-34 04:50:00* Test Item Value Reference Range Interpretation Comments Monocytes (%) (Auto) (test code = 5905-5) 7.6 % 4.4-11.3 [facility] HospitalAutomated blood eosinophil count as percentage of total zeriejmuie3038-89-73 04:50:00* Test Item Value Reference Range Interpretation Comments Eosinophils (%) (Auto) (test code = 713-8) 3.3 % 0.0-6.0 [facility] HospitalAutomated blood basophil count as percentage of total kvypuylkov6039-15-13 04:50:00* Test Item Value Reference Range Interpretation Comments Basophils (%) (Auto) (test code = 706-2) 0.5 % 0.0-1.0 [facility] HospitalFluoroscopic procedure less than one hour lrkpvypi4398-02-60 04:50:00* Test Item Value Reference Range Interpretation Comments IM GRANULOCYTES % (test code = IM GRANULOCYTES %) 0.5 % 0.0- 1.0 [facility] HospitalAutomated blood neutrophil count 2020-03-05 04:50:00* Test Item Value Reference Range Interpretation Comments Neutrophils # (Auto) (test code = 751-8) 8.4 2.1-6.9 [facility] HospitalBlood lymphocytes count (number/volume) 2020-03-05 04:50:00* Test Item Value Reference Range Interpretation Comments Lymphocytes # (Auto) (test code = 33969-2) 0.9 1.0-3.2 [facility] HospitalBlood monocytes automated count (number/volume)2020-03-05 04:50:00* Test Item Value Reference Range Interpretation Comments Monocytes # (Auto) (test code = 742-7) 0.8 0.2-0.8 [facility] HospitalAutomated blood eosinophil count 2020-03-05 04:50:00* Test Item Value Reference Range Interpretation Comments Eosinophils # (Auto) (test code = 711-2) 0.4 0.0-0.4 [facility] HospitalAutomated blood basophil count (count/volume)2020-03-05 04:50:00* Test Item Value Reference Range Interpretation Comments Basophils # (Auto) (test code = 704-7) 0.1 0.0-0.1 [facility] HospitalFluoroscopic procedure less than one hour kzbnlnyy0341-47-17 04:50:00* Test Item Value Reference Range Interpretation Comments Absolute Immature Granulocyte (auto (raman t code = Absolute Immature Granulocyte (auto) 0.05 10*3/uL 0-0.1 [facility] plasma sodium measurement (moles/volume)2020-03-05 04:50:00* Test Item Value Reference Range Interpretation Comments Sodium Level (test code = 2951-2) 137 mmol/L 136-145 [facility]erum or plasma potassium measurement (moles/volume)2020-03-05 04:50:00* Test Item Value Reference Range Interpretation Comments Potassium Level (test code = 2823-3) 4.0 mmol/L 3.5-5.1 [facility] or plasma chloride measurement (moles/volume)2020-03-05 04:50:00* Test Item Value Reference Range Interpretation Comments Chloride Level (test code = 2075-0) 102 mmol/L 98-107 [facility] Hospitalerum or plasma carbon dioxide, total measurement (moles/volume)2020-03-05 04:50:00* Test Item Value Reference Range Interpretation Comments Carbon Dioxide Level (test code = 2028-9) 28 mmol/L 22-29 [facility] or plasma anion gfz4190-53-25 04:50:00* Test Item Value Reference Range Interpretation Comments Anion Gap (test code = 73544-8) 11.0 mmol/L 8-16 [facility]erum or plasma urea nitrogen measurement (mass/volume)2020-03-05 04:50:00* Test Item Value Reference Range Interpretation Comments Blood Urea Nitrogen (test code = 3094-0) 15 mg/dL 7-26 [facility] or plasma creatinine measurement (mass/volume)2020-03-05 04:50:00* Test Item Value Reference Range Interpretation Comments Creatinine (test code = 2160-0) 1.19 mg/dL 0.57-1.11 [facility] or plasma urea nitrogen/creatinine mass jmhnp2806-71-14 04:50:00* Test Item Value Reference Range Interpretation Comments BUN/Creatinine Ratio (test code = 3097-3) 13 6-25 [facility] HospitalEstimated glomerular filtration rate (GFR) sbjunpbgvlocm7548-74-19 04:50:00* Test Item Value Reference Range Interpretation Comments Estimat Glomerular Filtration Rate (test code = 621622987) 46 mL/mi n >60 Ranges were taken from the National Kidney Disease Education Program and the [place] literature.Reference ranges:60 or greater: Hzmkea87-55 ( for 3 consecutive months): Chronic kidney disease 15 or less: Kidney failureMemorial Hermann Katy HospitalGlucose elbsuldluef5146-82-99 04:50:00* Test Item Value Reference Range Interpretation Comments Glucose Level (test code = FVT7270) 173 mg/dL 74-118 [facility] or plasma calcium measurement (mass/volume)2020-03-05 04:50:00* Test Item Value Reference Range Interpretation Comments Calcium Level (test code = 89171-4) 9.3 mg/dL 8.4-10.2 [facility] HospitalCHEST SINGLE (PORTABLE)2020-03-04 08:23:00[facility] 1955 Sex: F [address] [place] [address] Patient Name: JAUN HART MR #: [id number] : 1955 Age/Sex: 64/F Req #: [id number] [facility] Physician: CHELSEY TOLEDO MD Ordered by: DURGA RESENDEZ MD Report #: [id number] Location: [facility] Room/Bed: [address] [address] ___ Procedure: [id number] DX/CHEST SINGLE (PORTABLE) Exam Date: 03/04/20 Exam Time: 525 REPORT STATUS: Signed EXAMINATION: CHEST SINGLE (PORTABLE) INDICATION: Chest tube evaluation. COMPARISON: Multiple prior x -rays including most recent on 03/03/2020. FINDINGS: Right [...] DURGA RESENDEZ MD CHEST SINGLE (PORTABLE)2020-03-03 11:36:00 [facility] : 1955 Sex: F [facility] [address] [address] Patient Name: JAUN HART MR #: [id number] : 1955 Age/Sex: 64/F Req #: [id number] [facility] Physician: CHELSEY TOLEDO MD Orde red by: DURGA RESENDEZ MD Report #: [id number] L ocation: [facility] Room/Bed: [facility] 198-1 ___ Procedure: [id number] DX/CHEST SINGLE (PORTABLE) Exam Date: 03/03/20 Exam Time: 1030 REPORT STATUS: Signed Chest, 1 view, 03/03/2020. History: Chest tube. Comparison: X-ray from earlier this morning. Fi ndings: The cardiomediastinal silhouette and pulmonary vasculature are within normal limits for a portable exam. 2 mm right apical pneumothorax is unchanged. Right basilar chest tube and bibasilar atelectasis are unchanged. There are n o acute osseous or soft tissue abnormalities. Impression: Tiny right apical pneumothorax without change. Signed by: Nathen Don on 03/03/2020 11:37 AM Dictated By: NATHEN DON MD 36 Transcribed By: SHIRA on 03/03/201136 COPY TO: DURGA RESENDEZ MD CHEST SINGLE (PORTABLE)2020-03-03 08:44:00 [facility] : 1955 Sex: F [facility] [address] [address] Patient Name: JAUN HART MR #: [id number] : 1955 Age/Sex: 64/F Req #: [id number] Adm Physician: CHELSEY TOLEDO MD Orde red by: RADHA MOSS MD Report #: [id number] Locati on: [facility] Room/Bed: [facility] 1981 Procedure: [id number] DX/CHEST SINGLE (PORTABLE) Exam Date: 03/03 Exam [...] MOSS MD CHEST SINGLE (PORTABLE)2020-03-02 14:18:00 [facility] : 1955 Sex: [place] [address] [place] [address] Patient Name: JAUN HART MR #: [id number] : 1955 Age/Sex: 64/F Req #: [id number] [facility] Physician: CHELSEY TOLEDO MD Orde red by: DURGA RESENDZE MD Report #: [id number] L ocation: [facility] Room/Bed: [place] [address] ___ Procedure: [id number] DX/CHEST SINGLE (PORTABLE) Exam Date: 03/02/20 Exam [...] RESENDEZ MD CHEST SINGLE (PORTABLE) 2020-03-02 08:34:00 [facility] : 1955 Sex: F [facility] [address] [place] [address] Patient Name: JAUN HART MR #: [id number] : 1955 Age/Sex: 64/F Req #: [id number] [facility] Physician: CHELSEY TOLEDO MD Orde red by: RADHA MOSS MD Report #: [id number] Locati on: [facility] Room/Bed: [facility] 198-1 Procedure: [id number] DX/CHEST SINGLE (PORTABLE) Exam Date: 03/02 Exam [...] on 03/02/2020 8:35 AM Dictated By: NATHEN Irwin ically Signed By: NATHEN DON MD on 03/02/20834 Transcribed By: SHIRA on 03/02/20834 COPY TO: RADHA MOSS MD Serum or plasma magnesium measurement (mass/volume)2020-03-01 16:16:00* Test Item Value Reference Range Interpretation Comments Magnesium Level (test code = 23591-4) 2.3 mg/dL 1.3-2.1 [facility] or plasma magnesium measurement (mass/volume)2020-03-01 16:16:00* Test Item Value Reference Range Interpretation Comments Magnesium Level (test code = 56783-1) 2.3 mg/dL 1.3-2.1 [facility] SINGLE (PORTABLE)2020-03-01 14:15:00[facility] : 1955 Sex: [place] [address] [place] [address] Patient Name: JAUN HART MR #: [id number] : 1955 Age/Sex: 64/F Req #: [id number] Adm Physician: Ordered by: RADHA MOSS MD Report #: [id number] Location: OR Room/Bed: Procedure: [id number] DX/CHEST SINGLE (PORTABLE) Exam Date: 03/01 Exam Time: 1400 REPORT STATUS: Signed EXAM: CHEST SINGLE (PORTABLE) DATE: 1 2:00 PM INDICATION: Renal mass, rule out [...] COPY TO: RADHA MOSS MD CHEST 2 GBLZC8928-96-87 15:17:00 [facility]UN [facility] : 1955 Sex: F [facility] [address] [address] Patient Name: JAUN HART MR #: [id number] : 1955 Age/Sex: 64/F Req #: [id number] [facility] Physician: Jessica hoang by: RADHA MOSS MD Report #: [id number] Locati on: OR Room/Bed: Procedure: [id number] DX/CHEST 2 VIEWS Exam Date: 02/25/20 Exam [...] acute cardiopulmonary abnormalities. Signed by: Dr. Martha davenport M.D. on 02/25/2020 3:17 PM Dictated By: MARTHA HARMON MD [facility] Signed By: MARTHA HARMON MD on 02/25/201516 Transcribed By: SHIRA perez 02/25/201516 COPY TO: RADHA MOSS MD Fluoroscopic procedure less than one hour dhilryne0262-87-79 14:46:00* Test Item Value Reference Range Interpretation Comments Coronavirus (PCR) (test code = Coronavirus (PCR)) NOT DETECTED NOTD ETECTED SARS-CoV-2 PCRHologic Aptima SARS-CoV-2 assay is a nucleic amplification test in [facility] for the qualitative detection of RNA from SARS-CoV-2 from nasopharyngeal (COMPUTER INFORMATION SYSTEMS INSTRUCTOR) specimens. It is used under Emergency Use [...] repr at testing oc clinically indicated.Tesing performed by:[facility] Laboratory Services3 [facility] [id number] peterson MD, PhDMemorial Hermann Kat[facility] HospitalFluoroscopic procedure less than one hour yqpdbmqq4128-57-60 14:46:00* Test Item Value Reference Range Interpretation Comments Coronavirus (PCR) (test code = Coronavirus (PCR)) NOT DETECTED NOTD ETECTED SARS-CoV-2 PCRHologic Aptima SARS-CoV-2 assay is a nucleic amplification test in [facility] for the qualitative detection of RNA from SARS-CoV-2 from nasopharyngeal (COMPUTER INFORMATION SYSTEMS INSTRUCTOR) specimens. It is used under Emergency Use Authorization (EUA) by [facility].A posi tive result is indicative of the [...] repr at testing oc clinically indicated.Tesing performed by:[facility] Laboratory Services3 [address] [facility] [id number] peterson MD, PhDMethodist [facility]San Hospitalerum or plasma total bilirubin measurement (mass/volume)2020-02-25 14:12:00* Test Item Value Reference Range Interpretation Comments Total Bilirubin (test code = 1975-2) 0.3 mg/dL 0.2-1.2 [facility] HospitalFluoroscopic procedure less than one hour flxviypa2772-37-33 14:12:00* Test Item Value Reference Range Interpretation Comments Aspartate Amino Transf (AST/SGOT) (test code = Aspartate Amino Transf (AST/SGOT)) 14 [IU]/L 5-34 [facility] Hospitalerum or plasma alanine aminotransferase measurement (enzymatic activity/volume)2020-02-25 14:12:00* Test Item Value Reference Range Interpretation Comments Alanine Aminotransferase (ALT/SGPT) (test code = 1742-6) 20 [IU]/L 0-55 [facility] Hospitalerum or plasma protein measurement (mass/volume)2020-02-25 14:12:00* Test Item Value Reference Range Interpretation Comments Total Protein (test code = 2885-2) 6.7 g/dL 6.5-8.1 [facility] Hospitalerum or plasma albumin measurement (mass/volume)2020-02-25 14:12:00* Test Item Value Reference Range Interpretation Comments Albumin (test code = 1751-7) 3.6 g/dL 3.5-5.0 [facility] HospitalPlasma globulin measurement (mass/volume) 2020-02-25 14:12:00* Test Item Value Reference Range Interpretation Comments Globulin (test code = 75147-5) 3.1 g/dL 2.3-3.5 [facility] Hospitalerum or plasma albumin/globulin mass zktuk9746-31-11 14:12:00* Test Item Value Reference Range Interpretation Comments Albumin/Globulin Ratio (test code = 1759-0) 1.2 0.8-2.0 [facility]erum or plasma alkaline phosphatase measurement (enzymatic activity/volume)2020-02-25 14:12:00* Test Item Value Reference Range Interpretation Comments Alkaline Phosphatase (test code = 6768-6) 99 [IU]/L 40-150 [facility] HospitalGLUBED2020-07-12 11:20:00* Test Item Value Reference Range Interpretation Comments GLUBED (test code = GLUBED) 180 MG/DL 70-110 H Performed by certified braze operator at [facility] CBC W/AUTO ESKL2109-14-52 08:55:00* Test Item Value Reference Range Interpretation [...] (test code = MDIFF) NO BASIC METABOLIC QPOUK9894-73-82 08:42:00* Test Item Value Reference Range Interpretation [...] code = CA) 9.4 mg/dL 8.0-10.5 N XUUKSHLOCGV4606-19-63 08:42:00* Test Item Value Reference Range Interpretation Comments PHOSPHOROUS (test code = PHOS) 3.5 MG/DL 2.5-4.9 N QQNBPPAKV6930-90-33 08:42:00* Test Item Value Reference Range Interpretation Comments MAGNESIUM (test code = MAG) 2.10 mg/dL 1.8-2.4 GQJUUC8988-95-70 08:03:00* Test Item Value Reference Range Interpretation Comments GLUBED (test code = GLUBED) 140 MG/DL 70-110 H Performed by certified braze operator at [facility] WGZXJC4409-02-95 20:30:00* Test Item Value Reference Range Interpretation Comments GLUBED (test code = GLUBED) 183 MG/DL 70-110 H Performed by certified braze operator at [facility] - MRI PELVIS W W/O JXKS0240-60-60 17:17:00 FAX: Mert Taylor MD [phone] [place]: St: ADM FAX: Torsten Reilly MD [phone] Name: JAUN HART [facility] : 1955 Age/S: 63/F [address] [place] [address] Unit #: [id number] Loc: [address] [address] Phys: Torsten De La Cruz MD Acct: [id number] Dis Date: Status: ADM IN PHONE #: [phone] Exam Date: 11/13/2019 1330 FAX #: [phone] Reason: adnexal mass EXAMS: CPT CODE: [id number] MRI PELVIS W W/O CONT 10794 PROCEDURE: MRI PELVIS WITH AND WITHOUT CONTRAST [...] uterus corresponding to calcified fibroid by CT. Ballistic Technician lesio ns as follows: Posterior uterine body [...] Signed Report (CONTINUED) FAX: Mert Taylor MD [phone] [place]: St: ADM FAX: Torsten Reilly MD [phone] Name: LAYA BAJAUN [facility] : [birth year] Age/S: 63/F [address] [place] [address] Unit #: [id number] Loc: [address] [address] Phys: Torsten De La Cruz MD Acct: [id number] Dis Date: Status: ADM IN PHONE #: [phone] Exam Date: 11/13/2019 1330 FAX #: [phone] Reason: adnexal mass EXAMS: CPT CODE: [id number] MRI PELVIS W W/O CONT 56223 <Continued> Additional comments: No free intraperitoneal fluid. IMPRESSION: 1. Right ovarian dermoid--mature teratoma. 2. Multiple uterine masses compatible with fibroids. SL: LATASHA at 1717 Reported and signed by: Gabo Andrew M.D. CC: Mert Medina M.D.; Torsten De La Cruz MD Technologist: Mei White RT(MR)(CT); Alisson Miller RT(MR) Trninrd Date/Time/By: 11/13/2019 (171) : By: BakariKWL Orig Print D/T: S: 11/13/2019 (4034) PAGE 2 Signed Report GLUBED 2019-11-13 16:53:00* Test Item Value Reference Range Interpretation Comments GLUBED (test code = GLUBED) 258 MG/DL 70-110 H Performed by certified braze operator at [facility] YKDGPG3070-20-11 16:53:00* Test Item Value Reference Range Interpretation Comments GLUBED (test code = GLUBED) 169 MG/DL 70-110 H Performed by certified braze operator at [facility] - MRI ABDOMEN W W/O MCHI8731-74-63 16:39:00 FAX: Mert Taylor MD [phone] [place]: St: ADM FAX: Torsten Reilly MD [phone] Name: JAUN HART [facility] : 1955 Age/S: 63/F [address] [place] [address] Unit #: [id number] Loc: [address] [place] [address] Phys: Torsten De La Cruz MD Acct: [id number] Dis Date: Status: ADM IN PHONE #: [phone] Exam Date: 11/13/2019 1230 FAX #: [phone] Reason: renal mass EXAMS: CPT CODE: [id number] MRI ABDOMEN W W/O CONT 67985 PROCEDURE: MRI ABDOMEN WITH AND WITHOUT CONTRAST [...] Signed Report (CONTINUED) FAX: Mert Taylor MD [place]: St: [facility] FAX: Torsten Reilly MD [phone] -- N gerard: JAUN HART [facility] : 1955 Age/S: 63/F [address] [place], [place] [address] Unit #: [id number] Loc: [place] [address] Phys: Torsten De La Cruz MD Acct: [id number] Dis D ate: Status: ADM IN PHONE #: [phone] Exam Date: 11/13/2019 1230 FAX #: [phone] Reason: renal mass EXAMS: CPT CODE: [id number] MRI ABDOMEN W W/O CONT 12082 <Continued> RETROPERITONEUM: The renal veins are patent. [...] 3. Lipid rich left adrenal adenoma. SL: СВЕТЛАНАH at 1639 Reported and signed by: Gabo Andrew M.D. CC: Mert Medina M.D.; Torsten De La Cruz MD Technologist: Altagracia White, RT(MR)(CT); Alisson Miller RT(MR) Trninrd Date/Time/By: 2019 (9630) : By: BakariKWL Orig Print D/T: S: 11/13/2019 (9652) PAGE 2 Signed Report HGBA1C%2019-11-13 12:26:00* Test Item Value Reference Range Interpretation Comments HGBA1C% (test code = HGBA1C%) 7.4 %A1C 4.8-6.0 H COMMENTS: add on to today's blood evqbguWLGFED5163-72-17 07:49:00* Test Item Value Reference Range Interpretation Comments GLUBED (test code = GLUBED) 124 MG/DL 70-110 H Performed by certified braze operator at [facility] BASIC METABOLIC UYQOB9082-16-44 04:44:00* Test Item Value Reference Range Interpretation [...] code = CA) 8.8 mg/dL 8.0-10.5 N [id number] 04:44:00* Test Item Value Reference Range Interpretation Comments PHOSPHOROUS (test code = PHOS) 3.3 MG/DL 2.5-4.9 N [id number] 04:44:00* Test Item Value Reference Range Interpretation Comments MAGNESIUM (test code = MAG) 1.80 mg/dL 1.8-2.4 N CBC W/AUTO [id number] 04:33:00* Test Item Value Reference Range Interpretation [...] DIFF REQUIRED (test code = MDIFF) NO [id number] 19:28:00* Test Item Value Reference Range Interpretation Comments GLUBED (test code = GLUBED) 226 MG/DL 70-110 H Performed by certified braze operator at [facility] [id number] 17:21:00* Test Item Value Reference Range Interpretation Comments GLUBED (test code = GLUBED) 196 MG/DL 70-110 H Performed by certified braze operator at [facility] [id number] 17:14:00* Test Item Value Reference Range Interpretation Comments GLUBED (test code = GLUBED) 158 MG/DL 70-110 H Performed by certified braze operator at [facility] UR PROTEIN [id number] 13:14:00* Test Item Value Reference Range Interpretation Comments UR PROTEIN RANDOM (test code = PROTU) 16 mg/dL Note: Change in UNITS of MEASUREMENT. The Reference Range and Method Performance specificationshave not been established for this fluid. The test resultshould be correlated into the clinical context forinterpretation. UR CREATININE [id number] 13:14:00* Test Item Value Reference Range Interpretation Comments UR CREATININE RANDOM (test code = CREATU) 36.7 mg/dL The Reference Range and Method Performance specificationshave not been established for this fluid. The test resultshould be correlated into the clinical context forinterpretation. BASIC METABOLIC [id number] 10:19:00* Test Item Value Reference Range Interpretation [...] code = CA) 8.6 mg/dL 8.0-10.5 N [id number] 10:19:00* Test Item Value Reference Range Interpretation Comments MAGNESIUM (test code = MAG) 2.00 mg/dL 1.8-2.4 N CBC W/AUTO [id number] 10:01:00* Test Item Value Reference Range Interpretation [...] DIFF REQUIRED (test code = MDIFF) NO [id number] 08:09:00* Test Item Value Reference Range Interpretation Comments GLUBED (test code = GLUBED) 116 MG/DL 70-110 H Performed by certified braze operator at [facility] - CT ABD PELVIS W/O [id number] 21:31:00 Name: JAUN HART [facility] : 1955 Age/S: 63 / F [address] [place] [address] Unit #: [id number] Loc: [place] [address] Phys: Javier Boles DO Acct: [id number] Dis Date: Status: REG ER PHONE #: [phone] Exam Date: 11/11/20192108 FAX #: [phone] Reason: abd pain distention EXAMS: CPT CODE: [id number] CT ABD PELVIS W/O CONT 71713 PROCEDURE: CT ABDOMEN AND PELVIS WITHOUT CONTRAST [...] 1 Signed Report (CONTINUED) Name: JAUN HART [facility] [place] : 1955 Age/S: 63 / F [address] [place] [address] Blvd Unit #: [id number] Loc: [place] [address] Phys: Javier Boles DO Acct: [id number] Dis Date: Status: R EG ER PHONE #: [phone] Exam Date: 01/2020 FAX #: [phone] Reason: abd pain diste ntion EXAMS: CPT CODE: [id number] CT ABD PELVIS W/O CONT 7 4176 [...] 2 Signed Report (CONTINUED) Name: MARIO HART [facility] : 1955 Age/ S: 63 / F [address] [place] [address] Blvd Unit #: [id number] Loc: [place] [address] Phys: Javier Boles DO Acct: [id number] Dis Date: Status: REG ER PHONE #: [phone] E xam Date: 11/11/20192108 FAX #: [phone] Reason: abd pain distention EXAMS: CPT CODE: [id number] CT ABD PELVIS W/O CONT 56266 <Continued> options include follow-up nonemergent pelvic ultrasound. 7. Other nonemergent findings as above. A verbal report was called to Javier Boles DO on 11/11/2019 9:28 PM. SL: LATASHA at 213 Reported and signed by: Gabo Adnrew M.D. CC: Javier Boles DO; Mert Medina M.D. Technologist:Scott Joshi RT(R)(CT); Marycarmen CTDI: DLP: Trnscb Date/Time: 11/11/2019 (2130) tJOANA Orig Print D/T: S: 11/11/2019 (2133) PAGE 3 Signed Report BASIC METABOLIC [id number] 20:59:00* Test Item Value Reference Range Interpretation [...] code = CA) mg/dL 8.0-10.5 HEPATIC FUNCTION [id number] 20:59:00* Test Item Value Reference Range Interpretation Comments TOTAL PROTEIN (test code = PROT) g/dL 6.4-8.2 ALBUMIN (test code = ALB) g/dL 3.4-5.0 BILIRUBIN TOTAL (test code = BILT) MG/DL <1.5 BILIRUBIN DIRECT (test code = BILD) MG/DL 0.0-0.30 SGOT/AST (test code = AST) IUnit/L 15-37 SGPT/ALT (test code = ALT) IUnit/L 15-65 ALKALINE PHOSPHATASE TOTAL (test code = ALKP) IUnit/L 20-125 [id number] 20:59:00* Test Item Value Reference Range Interpretation Comments LIPASE (test code = LIP) IUnit/L 73-393 [id number] 20:59:00* Test Item Value Reference Range Interpretation Comments TROPONIN-I (test code = TROPI) < 0.015 ng/mL 0.000-0.045 N Negative: <= 0.045 Positive: >= 0.046 Correlation with serial results, other cardiac markers andclinical findings is necessary to determine the clinicalsignificance of this result. Results using different methodologies should not be comparedto one another as quantitative results may vary by method. BASIC METABOLIC [id number] 20:59:00* Test Item Value Reference Range Interpretation [...] CA) 9.2 mg/dL 8.0-10.5 N HEPATIC FUNCTION [id number] 20:59:00* Test Item Value Reference Range Interpretation [...] code = ALKP) 132 IUnit/L 20-125 H [id number] 20:59:00* Test Item Value Reference Range Interpretation Comments LIPASE (test code = LIP) 466 IUnit/L 73-393 H [id number] 20:59:00* Test Item Value Reference Range Interpretation Comments TROPONIN-I (test code = TROPI) < 0.015 ng/mL 0.000-0.045 N Negative: <= 0.045 Positive: >= 0.046 Correlation with serial results, other cardiac markers andclinical findings is necessary to determine the clinicalsignificance of this result. Results using different methodologies should not be comparedto one another as quantitative results may vary by method. CBC W/AUTO [id number] 20:46:00* Test Item Value Reference Range Interpretation [...] MDIFF) NO UA RFLX MICR CULT IF [id number] 20:15:00* Test Item Value Reference Range Interpretation [...] PainSpecimen Description: CLEAN CATCH- XR CHEST 2 [id number] 16:34:00 FAX: Mert Taylor MD [phone] [place]: St: PRE FAX: Buck Vidal MD [phone] Name: JAUN HART [facility] [place] : 1955 Age/S: 63/F [address] [place] [address] Unit #: [id number] Loc: [place] [address] Phys: Buck Vidal MD Acct: [id number] Dis Date: Status: PRE ER PHONE #: [phone] Exam Date: 08/24/2019 163 FAX #: [phone] Reason: Chest Pain EXAMS: CPT CODE: [id number] XR CHEST 2 V 47040 Clinical Indication: Chest pain. Comparison: 03/29/2019. Impression: Chest, 2 views. Lungs are clear. No consolidation, pleural effusion, or pneumothorax. Cardiomediastinal silhouette is unremarkable. No acute osseous abnormality. SL: [id number] at 1634 Reported and signed by: Rubia Cassidy M.D. CC: Mert Medina M.D.; Buck Vidal MD Technologist: RT Jeremy(R) Trnscrd Date/Time/By: 08/24/2019 (1633) : By: [email or web address] Orig Print D/T: S: 08/24/2019 (1636) PAGE 1 Signed Report BASIC METABOLIC [id number] 16:32:00* Test Item Value Reference Range Interpretation [...] CA) 9.4 mg/dL 8.0-10.5 N HEPATIC FUNCTION [id number] 16:32:00* Test Item Value Reference Range Interpretation [...] code = ALKP) 100 IUnit/L 20-125 N [id number] 16:32:00* Test Item Value Reference Range Interpretation Comments LIPASE (test code = LIP) 180 IUnit/L 73-393 N TSH REFLEX TO [id number] 16:32:00* Test Item Value Reference Range Interpretation Comments TSH REFLEX TO FT4 (test code = TSHREFLEX) 1.40 IU/mL 0.42-5.47 N BASIC METABOLIC [id number] 16:17:00* Test Item Value Reference Range Interpretation [...] CA) 9.4 mg/dL 8.0-10.5 N HEPATIC FUNCTION [id number] 16:17:00* Test Item Value Reference Range Interpretation Comments TOTAL PROTEIN (test code = PROT) g/dL 6.4-8.2 ALBUMIN (test code = ALB) g/dL 3.4-5.0 BILIRUBIN TOTAL (test code = BILT) MG/DL <1.5 BILIRUBIN DIRECT (test code = BILD) MG/DL 0.0-0.30 SGOT/AST (test code = AST) IUnit/L 15-37 SGPT/ALT (test code = ALT) IUnit/L 15-65 ALKALINE PHOSPHATASE TOTAL (test code = ALKP) IUnit/L 20-125 [id number] 16:17:00* Test Item Value Reference Range Interpretation Comments LIPASE (test code = LIP) 180 IUnit/L 73-393 N TSH REFLEX TO [id number] 16:17:00* Test Item Value Reference Range Interpretation Comments TSH REFLEX TO FT4 (test code = TSHREFLEX) IU/mL 0.42-5.47 TROPONIN-I [id number] 16:09:00* Test Item Value Reference Range Interpretation Comments TROPONIN-I RAPID (test code = TROPIRAP) 0.01 ng/mL 0.00-0.08 N Performed by certified braze operator at [facility] Negative: <= 0.08 Positive: >= 0.09An elevated troponin value alone is not sufficient todiagnose a myocardial infarction. Rather, the patient sclinical presentation (history, physical exam) and ECGshould be used in conjunction with troponin in thediagnostic evaluation of suspected myocardial infarction. Aserial sampling protocol is recommended to facilitate the identification of temporal changes in troponin levels characteristic of NV. CBC W/AUTO [id number] 16:08:00* Test Item Value Reference Range Interpretation [...] = MDIFF) NO - XR L-SPINE 06/07 [id number] 17:59:00 FAX: Mert Taylor MD [phone] [place]: St: REG FAX: Rachele Hodge ARTEMIO [phone] Name: JAUN HART [facility] : 1955 Age/S: 63/F [address] [place] [address] Unit #: [id number] Loc: [place] [address] Phys: NavievanNoamramsey ULLOA Acct: [id number] Dis Date: Status: REG ER PHONE #: [phone] Exam Date: 05/29/2019 1752 FAX #: [phone] Reason: acute low back and r hip pain EXAMS: CPT CODE: [id number] XR L-SPINE 2/3 VIEWS 77198 PROCEDURE: LUMBAR SPINE 3 VIEWS INDICATION: acute [...] bonilla M.D.; Rachele Hodge NP Technologist: RT Jessica(Harvey) Trnscrd Date/Time/By: 05/29/2019 (1758) : By: BakariKWL Orig Print D/T: S: 05/29/2019 (2530) PAGE 1 Signed Report - XR HIP IRON [id number] 17:55:00 FAX: Mert Taylor MD [phone] [place]: St: REG FAX: Rachele Hodge NP [phone] Name: JAUN HART [facility] : 1955 Age/S: 63/F [address] [place] [address] Unit #: [id number] Loc: [place] [address] Phys: Rachele Hodge NP Acct: [id number] Dis Date: Status: REG ER PHONE #: [phone] Exam Date: 05/29/20191751 FAX #: [phone] Reason: acute low back and r hip pain EXAMS: CPT CODE: [id number] XR HIP IRON W/PELVIS 12683 Clinical Indication: acute low back and r [...] or dislocation of the bilateral hips. SL: LANVU-H at 1755 Reported and sig jae by: Mehul Mora M.D. CC: Mert Medina M.D.; Rachele Hodge NP Technologist: Julissa Arana RT(R) Trnscrd Date/Time/By: 05/29/2019 (1754) : By: BakariLNV Orig Daisy nt D/T: S: 05/29/2019 (0274) PAGE 1 Signed Report [id number] 06:50:00* Test Item Value Reference Range Interpretation Comments GLUBED (test code = GLUBED) 206 MG/DL 70-110 H Performed by certified braze operator at [facility] TROPONIN-I [id number] 20:39:00* Test Item Value Reference Range Interpretation Comments TROPONIN-I RAPID (test code = TROPIRAP) 0.00 ng/mL 0.00-0.08 N Performed by certified braze operator at [facility] Negative: <= 0.08 Positive: >= 0.09An elevated troponin value alone is not sufficient todiagnose a myocardial infarction. Rather, the patient sclinical presentation (history, physical exam) and ECGshould be used in conjunction with troponin in thediagnostic evaluation of suspected myocardial infarction. Aserial sampling protocol is recommended to facilitate the identification of temporal changes in troponin levels characteristic of NV. CBC W/AUTO [id number] 19:52:00* Test Item Value Reference Range Interpretation [...] (test code = MDIFF) NO BASIC METABOLIC [id number] 19:19:00* Test Item Value Reference Range Interpretation [...] = CA) 9.4 mg/dL 8.0-10.5 N TROPONIN-I [id number] 18:49:00* Test Item Value Reference Range Interpretation Comments TROPONIN-I RAPID (test code = TROPIRAP) 0.01 ng/mL 0.00-0.08 N Performed by certified braze operator at [facility] Negative: <= 0.08 Positive: >= 0.09An elevated troponin value alone is not sufficient todiagnose a myocardial infarction. Rather, the patient sclinical presentation (history, physical exam) and ECGshould be used in conjunction with troponin in thediagnostic evaluation of suspected myocardial infarction. Aserial sampling protocol is recommended to facilitate the identification of temporal changes in troponin levels characteristic of NV. - XR CHEST 1 [id number] 16:45:00 FAX: Mert Taylor MD [phone] [place]: St: PRE FAX: Erin Zhong [phone] Name: JAUN HART [facility] : 1955 Age/S: 63/F [address] [place] [address] Unit #: [id number] Loc: [place] [address] Phys: Erin Sy Acct: [id number] Dis Date: Status: PRE ER PHONE #: [phone] Exam Date: 03/29/20191642 FAX #: [phone] Reason: Chest Pain EXAMS: CPT CODE: [id number] XR CHEST 1 V 96672 EXAM: XR CHEST 1 VIEW DATE: 03/29/2019 3:40 PM : 1955; Age: 63 years y/o Female INDICATION: Chest Pain COMPARISON: January 16, 2019 TECHNIQUE: AP chest. IMPRESSION: Lines, tubes and hardware: None. Heart, mediastinum and lungs: The heart size is normal for technique. The mediastinal contours are normal. Pulmonary vascularity is normal. The lungs are clear. SL: [id number] at 7399 Reported and signed by: Jack León D.O. CC: Mert Medina M.D.; Erin LAZCANO Technologist: RT Arnav(Harvey)(M) Trnscrd Date/Time/By: 03/29/2019 (1644) : By: [email or web address] Orig Print D/T: S: 03/29/2019 (6115) PAGE 1 Signed Report [id number] 16:12:00* Test Item Value Reference Range Interpretation Comments GLUBED (test code = GLUBED) 323 MG/DL 70-110 H Performed by certified braze operator at [facility] [id number] 09:19:00* Test Item Value Reference Range Interpretation Comments GLUBED (test code = GLUBED) 219 MG/DL 70-110 H Performed by certified braze operator at [facility] [id number] 21:17:00* Test Item Value Reference Range Interpretation Comments GLUBED (test code = GLUBED) 333 MG/DL 70-110 H Performed by certified braze operator at [facility] [id number] 20:48:00* Test Item Value Reference Range Interpretation Comments GLUBED (test code = GLUBED) 230 MG/DL 70-110 H Performed by certified braze operator at [facility] [id number] 20:26:00* Test Item Value Reference Range Interpretation Comments GLUBED (test code = GLUBED) 263 MG/DL 70-110 H Performed by certified braze operator at [facility] [id number] 12:30:00* Test Item Value Reference Range Interpretation Comments GLUBED (test code = GLUBED) 204 MG/DL 70-110 H Performed by certified braze operator at [facility] [id number] 08:21:00* Test Item Value Reference Range Interpretation Comments GLUBED (test code = GLUBED) 181 MG/DL 70-110 H Performed by certified braze operator at [facility] CBC W/AUTO [id number] 08:20:00* Test Item Value Reference Range Interpretation [...] (test code = MDIFF) NO BASIC METABOLIC [id number] 07:44:00* Test Item Value Reference Range Interpretation [...] code = CA) 8.7 mg/dL 8.0-10.5 N [id number] 16:30:00* Test Item Value Reference Range Interpretation Comments GLUBED (test code = GLUBED) 197 MG/DL 70-110 H Performed by certified braze operator at [facility] [id number] 11:46:00* Test Item Value Reference Range Interpretation Comments GLUBED (test code = GLUBED) 167 MG/DL 70-110 H Performed by certified braze operator at [facility] [id number] 07:52:00* Test Item Value Reference Range Interpretation Comments GLUBED (test code = GLUBED) 112 MG/DL 70-110 H Performed by certified braze operator at [facility] [id number] 00:49:00* Test Item Value Reference Range Interpretation [...] ED)- XR CHEST 1 V 2019-01-16 20:39:00 [place]: St: ADM Name: JAUN RAYGOZA [facility] : [birth year] Age/S: 63/F [address] [place] [address] Unit #: [id number] Loc: [place] [address] Phys: Mikhail Bynum MD Acct: [id number] Dis Date: Status: ADM IN PHONE #: [phone] Exam Date: 01/16/20192030 FAX #: [phone] Reason: Chest Pain EXAMS: CPT CODE: [id number] XR CHEST 1 V 76652 PROCEDURE: CHEST SINGLE VIEW INDICATION: Chest Pain COMPARISON: 11/06/2018 FINDINGS: The lungs are clear. No pleural abnormality. The cardiomedi astinal silhouette is normal for projection. The bony thorax is intact. IMPRESSION: Normal radiograph. SL: Estrellita Dc at 2038 Rep orted and signed by: Gabo Andrew M.D. CC: Technologist: RT Elisa(Harvey) Trnscrd Date/Time/By: 01/16/2019 (2038) : By : Aba Orig Print D/T: S: 01/16/2019 (2041) PAGE 1 Signed Report B- TYPE NATRIURETIC [id number] 20:33:00* Test Item Value Reference Range Interpretation Comments B-TYPE NATRIURETIC PEPTIDE (test code = BNP) 33.7 PG/ML 0-100 N [id number] 20:33:00* Test Item Value Reference Range Interpretation [...] 3 troponins total (including troponin done in ED)[id number] 20:21:00* Test Item Value Reference Range Interpretation Comments D-DIMER (test code = DDIMER) 395 ng/mlFEU <=500 N THROMBOSIS AND/OR PULMONARY EMBOLISM AND THE CLINICAL CUT- OFF VALUE FOR EXCLUSION (500 ng/mL FEU) OF THESE CONDITIONSIS VALIDATED BY THE PUTTY AND CAULKING SUPERVISOR OF THE METHOD. A NEGATIVE D-DIMER RESULT WHEN COMBINED WITH A CLINICALASSESSMENT OF LOW PRETEST PROBABILITY HAS BEEN SHOWN TO HAVEA HIGH NEGATIVE PREDICTIVE VALUE OF DVT OR PE. D-DIMER VALUES >500 ng/mL FEU ARE NOT DIAGNOSTIC FOR DVT, PEor DIC WITHOUT OTHER CONFIRMATORY TESTS AND APPROPRIATECLINICAL EUALUATIONS. CBC W/AUTO [id number] 20:07:00* Test Item Value Reference Range Interpretation [...] REQUIRED (test code = MDIFF) NO TROPONIN-I [id number] 20:03:00* Test Item Value Reference Range Interpretation Comments TROPONIN-I RAPID (test code = TROPIRAP) 0.00 ng/mL 0.00-0.08 N Performed by certified braze operator at [facility] Negative: <= 0.08 Positive: >= 0.09An elevated troponin value alone is not sufficient todiagnose a myocardial infarction. Rather, the patient sclinical presentation (history, physical exam) and ECGshould be used in conjunction with troponin in thediagnostic evaluation of suspected myocardial infarction. Aserial sampling protocol is recommended to facilitate the identification of temporal changes in troponin levels characteristic of NV. CHEMISTRY 8 [id number] 19:54:00* Test Item Value Reference Range Interpretation [...] code = GFRBED) 32 ML/MIN CHEMISTRY 8 [id number] 19:54:00* Test Item Value Reference Range Interpretation Comments ISTAT-SODIUM (test code = NAP) 142 MMOL/L 134-147 N ISTAT-POTASSIUM (test code = KP) 4.4 MMOL/L 3.4-5.0 N ISTAT-CHLORIDE (test code = CLP) 107 MMOL/L 100-108 N Performed by certified braze operator at [facility] ISTAT CARBON DIOXIDE (test code = ISTAT-CO2) 24.0 mmol/L 21-33 N ISTAT CALCIUM IONIZED (test code = ISTAT-DAVID) 1.20 MG/DL 1.12-1.3 2 N ISTAT-GLUCOSE (test code = GLUP) 178 MG/DL 70-110 H ISTAT-BUN (test code = BUNP) 25 MG/DL 7-18 H BEDSIDE CREATININE (test code = CREATBED) 1.7 MG/DL 0.6-1.3 H GLOMERULAR FILTRATION RATE POC (test code = GFRBED) 32 ML/MIN [id number] 19:29:00* Test Item Value Reference Range Interpretation Comments GLUBED (test code = GLUBED) 219 MG/DL 70-110 H Performed by certified braze operator at [facility] CBC W/AUTO [id number] 19:29:00* Test Item Value Reference Range Interpretation [...] (test code = MDIFF) NO BASIC METABOLIC [id number] 19:25:00* Test Item Value Reference Range Interpretation [...] code = CA) 9.2 mg/dL 8.0-10.5 N [id number] 17:11:00* Test Item Value Reference Range Interpretation Comments GLUBED (test code = GLUBED) 296 MG/DL 70-110 H Performed by certified braze operator at [facility] [id number] 11:51:00* Test Item Value Reference Range Interpretation Comments GLUBED (test code = GLUBED) 288 MG/DL 70-110 H Performed by certified braze operator at [facility] [id number] 07:53:00* Test Item Value Reference Range Interpretation Comments GLUBED (test code = GLUBED) 239 MG/DL 70-110 H Performed by certified braze operator at [facility] [id number] 00:21:00* Test Item Value Reference Range Interpretation Comments GLUBED (test code = GLUBED) 326 MG/DL 70-110 H Performed by certified braze operator at [facility] [id number] 15:34:00* Test Item Value Reference Range Interpretation Comments GLUBED (test code = GLUBED) 262 MG/DL 70-110 H Performed by certified braze operator at [facility] [id number] 11:39:00* Test Item Value Reference Range Interpretation Comments GLUBED (test code = GLUBED) 233 MG/DL 70-110 H Performed by certified braze operator at [facility] [id number] 09:48:00* Test Item Value Reference Range Interpretation Comments HGBA1C% (test code = HGBA1C%) 12.5 %A1C 4.8-6.0 H [id number] 08:36:00* Test Item Value Reference Range Interpretation Comments GLUBED (test code = GLUBED) 227 MG/DL 70-110 H Performed by certified braze operator at [facility] CBC W/AUTO [id number] 08:29:00* Test Item Value Reference Range Interpretation [...] (test code = MDIFF) NO BASIC METABOLIC [id number] 07:55:00* Test Item Value Reference Range Interpretation [...] code = CA) 8.8 mg/dL 8.0-10.5 N [id number] 22:10:00* Test Item Value Reference Range Interpretation Comments GLUBED (test code = GLUBED) 229 MG/DL 70-110 H Performed by certified braze operator at [facility] LACTIC ACID 2ND [id number] 19:55:00* Test Item Value Reference Range Interpretation Comments LACTIC ACID 2ND REPEAT (test code = LACT2) 1.9 mmol/L 0.4-1.9 N [id number] 18:11:00* Test Item Value Reference Range Interpretation Comments GLUBED (test code = GLUBED) 161 MG/DL 70-110 H Performed by certified braze operator at [facility] LACTIC ACID [id number] 16:48:00* Test Item Value Reference Range Interpretation Comments LACTIC ACID REPEAT (test code = LACTR) 2.3 mmol/l 0.4-1.9 H [id number] 16:06:00* Test Item Value Reference Range Interpretation Comments GLUBED (test code = GLUBED) 211 MG/DL 70-110 H Performed by certified braze operator at [facility] VENOUS BLOOD [id number] 15:04:00* Test Item Value Reference Range Interpretation [...] = DELV) Room Air Performed by certified braze operator at [facility] VENOUS BLOOD GAS TEMP (test code = TEMPV) 98.6 F VENOUS BLOOD GAS SITE (test code = SITEV) Other VENOUS TCO2 (test code = TCO2V) 26 PROTHROMBIN [id number] 15:03:00* Test Item Value Reference Range Interpretation [...] Myocardial Infarction (to prevent recurrent infarct). URINALYSIS [id number] 15:02:00* Test Item Value Reference Range Interpretation [...] 2+ /LPF NONE SEEN A HEPATIC FUNCTION [id number] 15:00:00* Test Item Value Reference Range Interpretation [...] code = ALKP) 136 IUnit/L 20-125 H [id number] 15:00:00* Test Item Value Reference Range Interpretation Comments LIPASE (test code = LIP) 333 IUnit/L 73-393 N ACETONE [id number] 15:00:00* Test Item Value Reference Range Interpretation Comments ACETONE QUANT (test code = ACETN) NEGATIVE - <20mg/dL mg/dL NEG - < 20 CBC W/AUTO [id number] 14:51:00* Test Item Value Reference Range Interpretation [...] (test code = MDIFF) NO HEPATIC FUNCTION [id number] 14:50:00* Test Item Value Reference Range Interpretation Comments TOTAL PROTEIN (test code = PROT) g/dL 6.4-8.2 ALBUMIN (test code = ALB) g/dL 3.4-5.0 BILIRUBIN TOTAL (test code = BILT) mg/dL 0.0-1.0 BILIRUBIN DIRECT (test code = BILD) MG/DL 0.0-0.30 SGOT/AST (test code = AST) IUnit/L 15-37 SGPT/ALT (test code = ALT) IUnit/L 15-65 ALKALINE PHOSPHATASE TOTAL (test code = ALKP) IUnit/L 20-125 [id number] 14:50:00* Test Item Value Reference Range Interpretation Comments LIPASE (test code = LIP) IUnit/L 73-393 ACETONE [id number] 14:50:00* Test Item Value Reference Range Interpretation Comments ACETONE QUANT (test code = ACETN) NEGATIVE - <20mg/dL mg/dL NEG - < 20 - XR CHEST 1 [id number] 14:33:00 FAX: Trinh Hodgson DO [place]: St: REG Name: JAUN RAYGOZA [facility] : 12/26/18 60 Age/S: 62/F [address] [place] [address] Unit #: [id number] Loc: [address] [address] Phys: Trinh Freedman DO Acct: [id number] Dis Date: Status: REG ER PHONE #: [phone] Exam Date: 11/06/2018 1431 FAX #: [phone] Reason: TACHYCARDIA EXAMS: CPT CODE: [id number] XR CHEST 1 V 95955 Patient: JAUN HART. : ; Age: 62 years; Gender: Female. MR: [id number]. Orderin enma physician: Trinh Freedman DO. PORTABLE CHEST AP: HISTORY: Tachycardia, weakness, diabetes, left flank pain. RAHEEM RISON: None. FINDINGS: Portable frontal view of the chest was ob tained. The lungs are clear bilaterally. The cardiomediastinal silhouette and pulmonary vasculature are unremarkable. The partially visualized upper abdomen is unremarkable. IMPRESSION: No acute disease i n the chest. SL: [id number] Electronic ally Signed by Janee Arroyo on 11/06/2018 at 1433 Reporte d and signed by: Raheem Arroyo M.D. CC: Trinh Freedman DO Technologist: Rima Morrow RT(R); Harvey Wells T(R) Trnscrd Date/Time/By: 11/06/2018 (8786) : By: [email or web address] Orig Print D/T: S: 11/06/2018 ([id number]) PAGE 1 Signed Report TROPONIN-I RAPID 2018-11-06 14:15:00* Test Item Value Reference Range Interpretation Comments TROPONIN-I RAPID (test code = TROPIRAP) 0.00 ng/mL 0.00-0.08 N Performed by certified braze operator at [facility] Negative: <= 0.08 Positive: >= 0.09An elevated troponin value alone is not sufficient todiagnose a myocardial infarction. Rather, the patient sclinical presentation (history, physical exam) and ECGshould be used in conjunction with troponin in thediagnostic evaluation of suspected myocardial infarction. Aserial sampling protocol is recommended to facilitate the identification of temporal changes in troponin levels characteristic of NV. LACTIC ACID [id number] 14:09:00* Test Item Value Reference Range Interpretation Comments LACTIC ACID POC (test code = LACTP) 3.7 MMOL/L 0.90-1.70 H Performed by certified braze operator at [facility] CHEMISTRY 8 [id number] 14:09:00* Test Item Value Reference Range Interpretation [...] code = GFRBED) 31 ML/MIN CHEMISTRY 8 [id number] 14:09:00* Test Item Value Reference Range Interpretation Comments ISTAT-SODIUM (test code = NAP) 136 MMOL/L 134-147 N ISTAT-POTASSIUM (test code = KP) 4.2 MMOL/L 3.4-5.0 N ISTAT-CHLORIDE (test code = CLP) 102 MMOL/L 100-108 N Performed by certified braze operator at [facility] ISTAT CARBON DIOXIDE (test code = ISTAT-CO2) [...] GFRBED) 31 ML/MIN XR Chest 1 View [id number] 20:00:48Patient: JAUN HART Date/Time05/25/2018 19:52 CSTReason for ExamChest painReportExam: AP chestLocation: N6Lkxbnel: Chest painComparison: NoneFindings:The lungs are clear. The pulmonary vasculature is normal. The heart size is normal. The mediastinal silhouette is unremarkable. The bony thorax is intact.Impression:No acute disease. Final Dictated by: MD Everett Francesco MDictated DT/TM: 05/25/2018 8:00 pmSigned by: MD Everett Francesco MSigned (Electronic Signature): 05/25/2018 8:00 pm Culture, [id number] 08:05:00Specimen: Urine, CC-MidstreamCollected: 01/17/2017 02:30 Status: Final [...] INR) 0.98 Ratio 0.6-1.2 N Partial Thromboplastin [id number] 03:50:00* Test Item Value Reference Range Interpretation Comments aPTT (test code = PTT) 32.20 seconds 24.39-37.25 N Urinalysis [id number] 03:48:00* Test Item Value Reference Range Interpretation Comments Color (test code = COLOR) Yellow Yellow,Straw,Pl yellow N Clarity (test code = CLAR) Sl Cloudy Clear A Specific [place] (test code = SPGR) 1.013 1.001-1.035 N [...] code = BACT) Few /HPF CBC with [id number] 03:33:00* Test Item Value Reference Range Interpretation [...] code = ALYMPH) 1.8 K/cumm 0.5-4.6 N Swain Abs (test code = AMONO) 0.4 K/cumm 0.0-1.2 N Eos Abs (test code = AEOS) 0.32 K/cumm 0.00-0.74 N Baso Abs (test code = ABASO) 0.1 K/cumm 0.00-0.21 N Comprehensive Metabolic [id number] 03:24:00* Test Item Value Reference Range Interpretation [...] race is not provided, and the patient isAfrican-Malian, multiply by 1.212. If sex is not [...] recommended by the National Kidney Found ation,http://nkdep.nih.gov [id number] 03:24:00* Test Item Value Reference Range Interpretation Comments Lipase (test code = LIP) 144 U/L 13-60 H 80573& PELVIS W/O [id number] 03:06:01AFTER HOURS SERVICE ON: 01/17/2017 3:06 AMCT Scan of the Abdomen and Pelvis Without ContrastLocation Code [id number]: Abd painTechnique: Axial and reconstructed [facility] and IV contrast. Study [...]
--- NOTE | 2020-03-13 21:34 | Diagnostic Imaging Report ---
EXAM: CT Abdomen and Pelvis WITHOUT contrast INDICATION: ^ABD PAIN N/V, PARTIAL RIGHT NEPHRECTOMY 10 DAYS AGO ^[id number] ^1927 ^Y COMPARISON: None. TECHNIQUE: Abdomen and pelvis were scanned utilizing a multidetector helical scanner from the lung base to the pubic symphysis without administration of IV contrast. Absence of intravenous contrast decreases sensitivity for detection of focal lesions and vascular pathology. Coronal and sagittal reformations were obtained. Routine protocol was performed. IV CONTRAST: None ORAL CONTRAST: None COMPLICATIONS: None RADIATION DOSE: Total DLP: 646 mGy*cm Estimated effective dose: (DLP x 0.015 x size factor) mSv CTDIvol has been reviewed. It is below the limits set by the Radiation Protocol Committee (RPC). Dose modulation, iterative reconstruction, and/or weight based adjustment of the mA/kV was utilized to reduce the radiation dose to as low as reasonably achievable. FINDINGS: LINES and TUBES: Internalized right nephroureteral catheter with proximal colon the renal pelvis and distal coil in the bladder lumen. LOWER THORAX: Small right pleural effusion with right lower lobe round posterior basilar dependent consolidation and scarring. HEPATOBILIARY: No focal hepatic lesions. No biliary ductal dilation. GALLBLADDER: Cholecystectomy clips. No radio-opaque stones or sludge. No wall thickening. SPLEEN: No splenomegaly. PANCREAS: No focal masses or ductal dilatation. ADRENALS: No adrenal nodules. 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 KIDNEYS/URETERS: Partial right renal superior pole nephrectomy with trace fat stranding and fluid. No hydronephrosis. No cystic or solid mass lesions. No stones. GI TRACT: No abnormal distention, wall thickening, or evidence of bowel obstruction. Appendix is normal. PELVIC ORGANS/BLADDER: A 5.6 x 4 cm mostly fatty mass with sparse soft tissue components in the right adnexa . Calcified uterine fibroids. LYMPH NODES: No lymphadenopathy. VESSELS: Arterial calcifications. PERITONEUM / RETROPERITONEUM: No free air or fluid. BONES: Degenerative changes. Transitional anatomy at L5-S1. SOFT TISSUES: Edema/stranding in right flank subcutaneous adipose. Trace air foci in right lower lateral chest wall.. Soft tissue nodularity in both breasts. IMPRESSION: 1. Post surgical changes in the right flank and right upper retroperitoneum in keeping with recent partial right nephrectomy. Absence of IV contrast limits evaluation for abscess, however no evidence of drainable fluid collection. 2. 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 3. Soft tissue nodularity in both breasts, including a 2.1 cm lobulated left lower breast nodule. Recommend referral to dedicated breast imaging center for diagnostic mammographic evaluation. 4. Calcified uterine fibroids 5. Small right pleural effusion with right right basilar atelectasis/scarring. Signed by: Alfredo Ibanez DO on 03/13/2020 9:30 PM
--- NOTE | 2020-03-13 21:37 | Diagnostic Imaging Report ---
EXAMINATION: CHEST SINGLE (PORTABLE) INDICATION: Weakness COMPARISON: Same-day abdominal CT, chest x-ray 03/06/2020 FINDINGS: TUBES and LINES: None. LUNGS/PLEURA: Normal lung volumes. Segmental consolidation in the right lower lung. No pneumothorax. HEART AND MEDIASTINUM: The cardiomediastinal silhouette is unremarkable. BONES AND SOFT TISSUES: No acute osseous lesion. Surgical clips along the right lower lateral chest. UPPER ABDOMEN: No free air under the diaphragm. IMPRESSION: Segmental consolidation in the right lower lung compatible with atelectasis and small pleural effusion as seen on same-day abdominal CT. Signed by: Alfredo Ibanez DO on 03/13/2020 9:33 PM
--- NOTE | 2020-03-14 04:03 | History and Physical ---
PRIMARY CARE PHYSICIAN: Dr. Gerard Medina. HOSPITAL PHYSICIAN: Dr. Cristofer Bal. CHIEF COMPLAINT: Nausea and emesis. HSTORY OF PRESENT ILLNESS: Ms. Bell is a 64-year-old female with nausea and emesis. Onset for three days. The patient did come to the emergency room the day prior and was discharged home. However, as she did not get better, she came back to the emergency room. White blood count was 9.3. Creatinine 1.44. Alkaline phosphatase 167. Lipase 152 slightly high, amylase 102. The patient has CT of abdomen and pelvis without contrast which demonstrated internalized right nephroureteral catheter with proximal coil in the renal pelvis and distal coil in the bladder lumen. There is also small right pleural effusion with right lower lobe round dependent consolidation and scarring. Status post right renal superior pole nephrectomy with fat stranding and fluid without any hydronephrosis. There is a 5.6 x 4 cm mostly fatty mass with sparse soft tissue in the right adnexa. There is edema extending to the right flank subcutaneous adipose and trace air in the right lower lateral chest wall. Decision made for hospitalization. The patient had a partial right nephrectomy [address] Pascal. PAST MEDICAL HISTORY: Diabetes, hypertension, retinal hemorrhages/vitreous hemorrhage status post surgery, uterine tumor, partial right nephrectomy for kidney mass. MEDICATIONS: Medication list reviewed per the chart record. Novolin N 40 units in the a.m., 20 units in p.m. Nifedipine 30 at bedtime, atorvastatin 40 at bedtime, tramadol p.r.n., Celebrex at some point, cephalexin at some point, omeprazole, metoprolol 50 twice a day, Zofran, . ALLERGIES: CODEINE. SOCIAL HISTORY: No smoking. No drinking. No drugs. 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 Lives with her and daughter and 10 grandchildren from ages 4 to 24. FAMILY HISTORY: Noncontributory. REVIEW OF SYSTEMS: GENERAL: No weight changes. OPHTHALMOLOGIC: No floaters right now. HEENT: No mouth ulcers. ENDOCRINE: No known thyroid disease. PULMONARY: No asthma. CARDIAC: No heart attack. GI: No constipation. : Denies excess hematuria right now. NEUROMUSCULAR: Stable strength. NEUROLOGIC: No seizures. DERMATOLOGIC: No rash. PHYSICAL EXAMINATION: VITAL SIGNS: Afebrile. Vital signs noted and reviewed per the chart record. GENERAL: Slightly pale, but mostly composed now. Sitting in bed. HEENT: Normocephalic, atraumatic. NECK: Supple, throat midline. LUNGS: Bilateral air entry, limited due to poor breathing. Intermittent cough. Few rhonchi. CARDIOVASCULAR: S1, S2. No murmurs, rubs, or gallops. ABDOMEN: Nonspecific discomfort in the right upper quadrant. Right flank with incision site harry without juarez drainage. EXTREMITIES: No clubbing. No cyanosis. No edema. INTEGUMENT: No rash. No purpura. LABORATORY DATA: 9 white count, 12 hemoglobin, 419 platelets. 4.0 potassium, 20 bicarbonate, 17 BUN, 1.44 creatinine. LFTs noted. Alkaline phosphatase 467. Albumin 3.2. Amylase 102. Lipase 152. Radiographic imaging as stated. IMPRESSION AND PLAN: 1. Failure to tolerate p.o. 2. Postop stay, status post partial right nephrectomy. 3. Right renal mass. 4. A 5.6 x 4 cm right adnexal mass. 5. Diabetes. 6. Hypertension. 7. Abnormal labs, elevated lipase with or without pancreatitis: 8. Nonspecific right upper quadrant pain, elevated alkaline phosphatase. 9. Abnormal chest radiography, small right pleural effusion with consolidation and scarring, NOS. 10. History of gastroenteritis. 11. breast nodule 12. constipation 13. Acute on chronic kidney injury. 14. Mild hypoalbuminemia. Switch some medicines to IV formulations give bowel rest. Serial exams. Urologic consult Dr. Pascal. Consider right upper quadrant ultrasound with or without a HIDA scan if no improvement occurs. Empiric antibiotics. Follow up electrolytes closely. If patient without spontaneous BMs, give suppository to induce. Thank you very much, Dr. Medina. Please call for questions. MD SHANE Lozoya/MANDEEP /[id number] LEIDY
--- NOTE | 2020-03-15 01:42 | NUR ---
DISCHARGE SUMMARY DATE 03/15/20 PRIMARY CARE PHYSICIAN: Dr. Gerard Medina. HOSPITAL PHYSICIAN: Dr. Cristofer Bal. PRIMARY DIAGNOSIS: Gastroenteritis, acute Possible sepsis Failure to tolerate PO Post operative state, recent partial right nephrectomy SECONDARY DIAGNOSES: 1. Failure to tolerate p.o. 2. Postop state, status post partial right nephrectomy. 3. Right renal mass. 4. A 5.6 x 4 cm right adnexal mass. Probable teratoma. 5. Diabetes. 6. Hypertension. 7. Abnormal labs, elevated lipase with or without pancreatitis: 8. Nonspecific right upper quadrant pain, elevated alkaline phosphatase. 9. Abnormal chest radiography, small right pleural effusion with consolidation and scarring, NOS. 10. History of gastroenteritis. 11. Left breast nodule 12. Acute on chronic kidney injury. 13. Mild hypoalbuminemia. 14. Probable constipation HOSPITAL COURSE: 64-year-old female with emesis multiple and inability to tolerate oral intake. Symptoms over 3 days. White blood count was 9.3. Creatinine 1.44. Alkaline phosphatase 167. Lipase 152 slightly high, amylase 102. The patient had a partial right nephrectomy 10 days prior for renal mass by Dr. Pascal. CT of abdomen and pelvis, noncontrast: Demonstrated internalized right nephroureteral catheter with proximal coil in the renal pelvis and distal coil in the bladder lumen. There is also small right pleural effusion with right lower lobe round dependent consolidation and scarring. Status post right renal superior pole nephrectomy with fat stranding and fluid without any hydronephrosis. There is a 5.6 x 4 cm mostly fatty mass with sparse soft tissue in the right adnexa. There is edema extending to the right flank subcutaneous adipose and trace air in the right lower lateral chest wall. Decision made for hospitalization. However as there were no hospital beds here, the ER and I requested transfer to [facility] where his urologist could see her. Dr Bal would be accepting doctor there. PHYSICAL EXAMINATION AT DISCHARGE: GENERAL: Slightly pale, but mostly composed. Sitting in bed. CARDIOVASCULAR: S1, S2. No murmurs, rubs, or gallops. ABDOMEN: Nonspecific discomfort in the right upper quadrant. Right flank with incision site harry without juarez drainage. DIET: Clears for now ACTIVITY: As tolerated [facility], Dr Bal available there to admit. [employer] Dr Pascal. Thank you very much, Dr. Medina.
== END 2020-03-13 23:55 | disposition other institution (70) ==
LOC: ER 19:09
DX: K85.90 Acute pancreatitis without necrosis or infection, unspecified (principal); R11.2 Nausea with vomiting, unspecified; R10.9 Unspecified abdominal pain; J90 Pleural effusion, not elsewhere classified
CPT/HCPCS: 36415; 71045; 74176; 80053; 82150; 83690; 85025; 99284; J2405; J7030

== ENCOUNTER → 2020-11-03 | Outpatient (CLI) | payer OTHER | LOC: RAD 10:45 | PROVIDERS: ATTEND Urology | DX: N20.0 Calculus of kidney (principal) | CPT/HCPCS: 74018 ==